=== PATIENT | female | born 1980 | race Caucasian/White ===

== ENCOUNTER 2020-03-08 00:40 | Emergency (ER) | payer OTHER, SELFPAY ==
--- NOTE | 2020-03-08 | XR_ITS ---
EXAMINATION: XR CHEST CLINICAL INFORMATION: Chest pain COMPARISON: 02/04/2019 TECHNIQUE: Frontal view of the chest was obtained. FINDINGS: Cardiac leads overlie the chest. No consolidation, edema, or effusion. No pneumothorax. Bronchial wall thickening noted. The cardiomediastinal silhouette is unchanged. Cervical fusion hardware noted. IMPRESSION: No consolidation. Bronchial wall thickening can be seen with a small airways process such as asthma or atypical/viral infection.
[2020-03-08 00:46] VITALS: BP 142/80; PULSE 116; RESP 20; TEMP 37.6; O2SAT 94; BMI 44.8
--- NOTE | 2020-03-08 00:46 | ECG_ITS ---
Test Reason : CHEST TIGHTNESS Blood Pressure : / mmHG Vent. Rate : 114 BPM Atrial Rate : 114 BPM P-R Int : 118 ms QRS Dur : 082 ms QT Int : 344 ms P-R-T Axes : 062 026 042 degrees QTc Int : [address] & T wave abnormality, consider anterior ischemia Abnormal ECG When compared with ECG of 09-SEP-2015 21:22, Heart rate has increased Referred By: Faith Lucero Electronically Signed By:JUWAN HOWELL
[2020-03-08 01:03] VITALS: PULSE 116
--- NOTE | 2020-03-08 01:18 | ED.CHESTPAIN ---
HPI - Chest Pain General Chief Complaint: Chest Pain Stated Complaint: Chest tightness/ear pain Time Seen by Provider: 03/08/20 01:18 History of Present Illness HPI narrative: This is a 39-year-old female who presents with onset of dry cough with bilateral chest wall discomfort and reports subjective fevers without sick contacts or recent travel. In addition, patient states that she has been having acute dysuria and reports a history of kidney stones. otherwise, patient denies sore throat, palpitations, GI symptoms. As per nursing patient took approximately 6 puffs on her albuterol just prior to arrival. Related Data Previous Rx's Medication Instructions Recorded azithromycin [Zithromax Z-Mikey] 250 mg PO DAILY 5 Days #5 tab 03/08/20 Allergies Allergy/AdvReac Type Severity Reaction Status Date / Time Sulfa (Sulfonamide Allergy Unknown rash, Verified 10/18/19 00:00 Antibiotics) itching sulfamethoxazole Allergy Unknown RASH Unverified 02/17/20 15:44 [From BACTRIM] trimethoprim [From BACTRIM] Allergy Unknown RASH Unverified 02/17/20 15:44 Review of Systems Review of Systems: Pertinent positives and negatives as stated in the HPI. GEN: chills, fatigue HEENT: no nasal congestion, sore throat, ear pain NEURO: no headache, dizziness, focal weakness CV: no chest pain, palpitations, LE edema ABD: no abdominal pain, nausea, vomiting, diarrhea : +dysuria, urgency, frequency SKIN: no rash ROS otherwise negative x 10 PMFSH Past Medical History Source: nursing notes reviewed Medical History Arthritis Asthma Bronchitis Fibromyalgia Fractured spine Seizure Social History Social History Alcohol intake: never Smoking Status: Current every day smoker Use of substances other than those prescribed or required for medical reasons: No Advance Directives: No Advance Directives Information Provided: No Physical Exam Vital Signs and I&O and Narrative: Vital Signs and I&O: Vital Signs Temp 99 F 03/08/20 03:54 Pulse 118 H 03/08/20 04:46 Resp 21 H 03/08/20 04:46 BP 118/61 03/08/20 04:46 Pulse Ox 95 03/08/20 04:46 Intake & Output 03/07/20 03/07/20 03/08/20 06:59 18:59 06:59 Intake Total 1500 / 1500 Balance 1500 / 1500 Weight 111.13 kg Intake: Intake, IV Amoun t 1500 / 1500 0.9 % Sodium C hloride 1,500 ml 1500 / 1500 @ Wide Open IV .Q0M STA Rx#: [id number] Body Mass Index 44.8 VITAL SIGNS: Reviewed. GENERAL: Well developed, well nourished, in no acute distress. HEAD: Normocephalic/atraumatic, EYES: PERRLA, EOMI intact without pain, no nystagmus/pallor/icterus noted EARS: Ext canals without abnormality, TMs non-bulging and non-erythematous NOSE: Nares patent bilateral OROPHARYNX: no oral lesions noted, posterior pharynx clear and non-erythematous without noted tonsillar enlargement/erythema/exudates NECK: Supple, no adenopathy LUNGS: Normal breath sounds. No adventitious sounds or accessory muscle use. SpO2<95%> CARDIOVASCULAR: Regular rate and rhythm without noted murmurs, no JVD or lower extremity edema. ABDOMEN: obese, soft, non-tender, non-distended with bowel sounds. No rigidity. No guarding. No palpable masses or hernias noted MUSCULOSKELETAL: No tenderness, deformities, or effusions noted on gross inspection. EXTREMITIES: No cyanosis, clubbing or edema. SKIN: Inspection of the skin reveals no rashes, ulcerations, jaundice, pallor, or petechiae. NEUROLOGIC: Alert and oriented x 4. Strength and sensation to light touch were grossly intact x 4. Course Course Course Narrative: This is a 39-year-old female with history and clinical presentation concerning for possible sepsis secondary to pneumonia, possible UTI, and less likely cardiac ischemia, renal colic, or PE. On review of all investigations the patient was treated for community-acquired pneumonia, but also tested for COVID-19. The latter testing was not associated with any hypoxia or hematology pattern of COVID-19. All results and findings were discussed with patient at bedside and she was discharged home in stable condition. Initial antibiotics were provided here in the emergency department and then patient was discharged with a script for remaining days. MDM - Chest Pain Lab Data Result diagrams: 03/08/20 01:37 03/08/20 01:37 Labs: Lab Results 03/08/20 03/08/20 03/08/20 Range/Units 01:37 01:37 01:37 WBC 12.7 H (4.8-10.8) X10*3/uL RBC 4.53 (4.20-5.50) X10*6/uL Hgb 12.2 (12.0-16.0) g/dl Hct 38.8 (37-47) % MCV 85.7 (80-98) fL MCH 26.9 L (27.0-33.0) pg MCHC 31.4 (31.0-35.0) g/dl RDW 16.2 H (11.0-16.0) % Plt Count 485 H (160-400) X10*3/uL MPV 9.2 L (9.4-12.3) fL Immature Gran % (Auto) 0.4 (0.0-0.4) % Neut % (Auto) 61.9 (45-73) % Lymph % (Auto) 29.1 (20-40) % [place] % (Auto) 4.7 (2-11) % Eos % (Auto) 3.4 (0-4) % Baso % (Auto) 0.5 (0-2) % Neut # (Auto) 7.9 (2.0-8.3) X10*3/uL Lymph # (Auto) 3.7 (1.2-4.9) X10*3/uL [place] # (Auto) 0.6 (0.1-1.2) X10*3/uL Eos # (Auto) 0.4 (0.0-0.4) X10*3/uL Baso # (Auto) 0.1 (0.0-0.2) X10*3/uL Abs Immat Gran (auto) 0.05 H (0.00-0.03) X10*3/uL Absolute Nucleated RBC 0.000 (0.0-0.012) X10*3/uL Nucleated RBC % (auto) 0.0 (0.0-0.2) /100WBC D-Dimer NG/ML Sodium 140 (135-145) mmol/L Potassium 3.8 (3.3-5.1) mmol/l Chloride 103 (96-108) mmol/L Carbon Dioxide 27 (22-29) mmol/L Anion Gap 14 (12-20) BUN 8 L (9-16) mg/dL Creatinine 0.82 (0.5-1.4) mg/dL Estim Creat Clear Calc 106.2 Estimated GFR > 60 Random Glucose 97 (60-115) mg/dL Lactic Acid (0.5-2.0) mmol/L Calcium 8.6 (8.4-10.2) mg/dL Total Bilirubin 0.2 (0.0-1.0) mg/dL AST 14 (5-31) U/L ALT 16 (0-31) U/L Alkaline Phosphatase 76 (39-117) U/L Troponin I High Sens (<3.5-17.0) ng/L Total Protein 7.5 (6.5-8.0) g/dL Albumin 4.3 (3.5-5.0) g/dL Urine Color DARK YELLOW Urine Appearance HAZY Urine pH 5.5 (5.0-8.0) Ur Specific [place] >= 1.030 H (1.005-1.025) Urine Protein NEG (NEG-TRACE) MG/DL Urine Glucose (UA) NEG (NEG) MG/DL Urine Ketones NEG (NEG) MG/DL Urine Blood NEG (NEG) Urine Nitrite NEG (NEG) Ur Leukocyte Esterase NEG (NEG) 03/08/20 03/08/20 03/08/20 Range/Units 01:37 01:41 01:41 WBC (4.8-10.8) X10*3/uL RBC (4.20-5.50) X10*6/uL Hgb (12.0-16.0) g/dl Hct (37-47) % MCV (80-98) fL MCH (27.0-33.0) pg MCHC (31.0-35.0) g/dl RDW (11.0-16.0) % Plt Count (160-400) X10*3/uL MPV (9.4-12.3) fL Immature Gran % (Auto) (0.0-0.4) % Neut % (Auto) (45-73) % Lymph % (Auto) (20-40) % [place] % (Auto) (2-11) % Eos % (Auto) (0-4) % Baso % (Auto) (0-2) % Neut # (Auto) (2.0-8.3) X10*3/uL Lymph # (Auto) (1.2-4.9) X10*3/uL [place] # (Auto) (0.1-1.2) X10*3/uL Eos # (Auto) (0.0-0.4) X10*3/uL Baso # (Auto) (0.0-0.2) X10*3/uL Abs Immat Gran (auto) (0.00-0.03) X10*3/uL Absolute Nucleated RBC (0.0-0.012) X10*3/uL Nucleated RBC % (auto) (0.0-0.2) /100WBC D-Dimer 286 NG/ML Sodium (135-145) mmol/L Potassium (3.3-5.1) mmol/l Chloride (96-108) mmol/L Carbon Dioxide (22-29) mmol/L Anion Gap (12-20) BUN (9-16) mg/dL Creatinine (0.5-1.4) mg/dL Estim Creat Clear Calc Estimated GFR Random Glucose (60-115) mg/dL Lactic Acid 1.4 (0.5-2.0) mmol/L Calcium (8.4-10.2) mg/dL Total Bilirubin (0.0-1.0) mg/dL AST (5-31) U/L ALT (0-31) U/L Alkaline Phosphatase (39-117) U/L Troponin I High Sens < 3.5 (<3.5-17.0) ng/L Total Protein (6.5-8.0) g/dL Albumin (3.5-5.0) g/dL Urine Color Urine Appearance Urine pH (5.0-8.0) Ur Specific [place] (1.005-1.025) Urine Protein (NEG-TRACE) MG/DL Urine Glucose (UA) (NEG) MG/DL Urine Ketones (NEG) MG/DL Urine Blood (NEG) Urine Nitrite (NEG) Ur Leukocyte Esterase (NEG) ECG Data ECG #1: Attestation: I personally reviewed and interpreted this ECG as follows: Prior ECG tracings: available for review (09/09/2015) Interpretation: NSR, HR-114, no evidence of ischemia Discharge Plan Discharge Clinical Impression: Pneumonia Qualifiers: Pneumonia type: due to unspecified organism Laterality: unspecified laterality Lung location: unspecified part of lung Qualified Code(s): J18.9 - Pneumonia, unspecified organism Patient Disposition: Home, Self-Care Instructions: Pneumonia (ED) Additional Instructions: 1. resume all home medications as prescribed. 2. [id number] cough medicine and take as directed on the outside packaging. 3. follow-up with your primary care provider this morning by calling the office and scheduling an appointment. The patient and/or family acknowledge understanding of results (as applicable), diagnosis, treatment plan, need for follow up, and symptoms that should prompt a return to the emergency room. Prescriptions: New azithromycin [Zithromax Z-Mikey] 250 mg tablet 250 mg PO DAILY 5 Days Qty: 5 RF: 0 Referrals: Michelle Garza MD [Primary Care Provider] - 2 days ( Follow-up after treatment for CAP with a Z-Mikey) Interventions: ED Discharge Assessment Last Done: 03/08/20 04:56 Discharge Date/Time: 03/08/20 04:57
[2020-03-08] MEDS: 0.9 % Sodium Chloride 1,500 ML 999 ML IV (01:42)
[2020-03-08 01:50] LABS: MANUAL DIFF FLAG NO
[2020-03-08 01:51] LABS: Glucose Urine UA NEG (NEG); Leukocyte Esterase Urine NEG (NEG); Nitrite Urine NEG (NEG); PH 5.5 (5.0-8.0); Specific Gravity - Urine >= 1.030 (1.005-1.025); Urine Blood NEG (NEG); Urine Ketones NEG (NEG); Urine Protein NEG (NEG-TRACE)
[2020-03-08 01:52] LABS: Basophils Absolute Auto 0.1 X10*3/uL (0.0-0.2); Basophils Percent Auto 0.5 % (0-2); Eosinophils Absolute Auto 0.4 X10*3/uL (0.0-0.4); Eosinophils Percent Auto 3.4 % (0-4); Hematocrit 38.8 % (37-47); Hemoglobin 12.2 g/dl (12.0-16.0); Imm Gran Abs Auto 0.05 X10*3/uL (0.00-0.03); Imm Gran Pct Auto 0.4 % (0.0-0.4); Lymphocytes Absolute Auto 3.7 X10*3/uL (1.2-4.9); Lymphocytes Percent Auto 29.1 % (20-40); Mean Corpuscular HGB Conc 31.4 g/dl (31.0-35.0); Mean Corpuscular Hemoglobin 26.9 pg (27.0-33.0); Mean Corpuscular Volume 85.7 fL (80-98); Mean Platelet Volume 9.2 fL (9.4-12.3); Monocytes Absolute Auto 0.6 X10*3/uL (0.1-1.2); Monocytes Percent Auto 4.7 % (2-11); Neutrophils Absolute Auto 7.9 X10*3/uL (2.0-8.3); Neutrophils Percent Auto 61.9 % (45-73); Platelet Count 485 X10*3/uL (160-400); Red Blood Count 4.53 X10*6/uL (4.20-5.50); Red Cell Distribution Width 16.2 % (11.0-16.0); White Blood Count 12.7 X10*3/uL (4.8-10.8)
[2020-03-08 01:53] LABS: Color Urine DARK YELLOW; UACC Culture Trigger NO
[2020-03-08 01:54] LABS: Appearance Urine HAZY
--- NOTE | 2020-03-08 01:56 | PC.NURSE ---
Iv established, labs including BCX x 2 and lactic obtained. Pt ambulating to the bathroom with walker with a jones/steady gait to provide urine sample. UA obtained and sent. IVF infusing per EMAR. Pt resting in bed watching TV, call syed within reach, awaiting lab results. Continue to monitor.
[2020-03-08 02:02] LABS: D Dimer 286 NG/ML
[2020-03-08 02:08] LABS: Lactic Acid 1.4 mmol/L (0.5-2.0)
[2020-03-08 02:11] VITALS: PULSE 114
[2020-03-08 02:14] LABS: Alanine Aminotransferase 16 U/L (0-31); Albumin Level 4.3 g/dL (3.5-5.0); Alkaline Phosphatase 76 U/L (39-117); Anion Gap 14 (12-20); Aspartate Amino Transferase 14 U/L (5-31); Bilirubin Total 0.2 mg/dL (0.0-1.0); Blood Urea Nitrogen 8 mg/dL (9-16); Calcium 8.6 mg/dL (8.4-10.2); Carbon Dioxide 27 mmol/L (22-29); Chloride 103 mmol/L (96-108); Creatinine Clr Calc Pharmacy 106.2; Estimated Glomerular Filt Rate > 60; Glucose Random 97 mg/dL (60-115); Potassium 3.8 mmol/l (3.3-5.1); Sodium 140 mmol/L (135-145); Total Protein 7.5 g/dL (6.5-8.0)
[2020-03-08 02:20] LABS: Troponin-I High Sensitivity < 3.5 ng/L (<3.5-17.0)
--- NOTE | 2020-03-08 02:32 | CT_ITS ---
EXAMINATION: CT ABDOMEN AND PELVIS WITHOUT CONTRAST CLINICAL INFORMATION: Flank pain COMPARISON: 02/04/2019 TECHNIQUE: Multidetector volumetric imaging was performed from the superior aspect of the liver through the pubic symphysis. Sagittal and coronal reformatted images were obtained on the technologist's workstation. This CT examination was performed using dose optimization techniques as appropriate, variously including the following: *Automated exposure control *Adjustment of mA and/or kV according to patient size (this includes techniques or standardized protocols for targeted exams where dose is matched to indication/reason for exam; i.e. extremities or head) *Use of iterative reconstruction technique DLP: 1539 mGy-cm FINDINGS: LUNG BASES: Patchy groundglass opacities are seen at both lung bases. The visualized cardiac structures are unremarkable. LIVER, GALLBLADDER, AND BILIARY TREE: The liver is normal in size, shape, and attenuation. No focal hepatic lesion or biliary ductal dilatation is present. Cholecystectomy. PANCREAS: Unremarkable. SPLEEN: Unremarkable. ADRENAL GLANDS: Unremarkable. KIDNEYS AND URETERS: The kidneys are normal in size, shape, and attenuation. No hydronephrosis, hydroureter, or calculi seen. No perinephric stranding. BLADDER: Unremarkable. GASTROINTESTINAL TRACT: Status post sleeve gastrectomy. Normal caliber small bowel. No obstruction. Normal appendix. No colonic wall thickening or inflammatory change. No free air. No free fluid. ABDOMINAL WALL: No significant hernia is appreciated. LYMPH NODES: Normal. VASCULAR: Normal caliber aorta with mild atherosclerotic calcifications noted. PELVIC VISCERA: Uterus is not seen. No adnexal mass. OSSEOUS STRUCTURES: No acute or suspicious osseous abnormality. Posterior fusion hardware of L4-L5. Right femoral screws noted. IMPRESSION: 1. No acute finding in the abdomen or pelvis. No hydronephrosis or nephrolithiasis. 2. Patchy groundglass opacities are seen at both lung bases. This could be infectious or inflammatory.
[2020-03-08 02:36] VITALS: BP 119/73; PULSE 112; RESP 22; TEMP 37.3; O2SAT 95
--- NOTE | 2020-03-08 02:40 | PC.NURSE ---
This RN [facility]. Pt aware of plan to XRay chest and CT abdomen. Pt coughing continuously, requesting cough medicine. MD aware.
[2020-03-08] MEDS: Benzonatate 100 MG CAPSULE PO (02:45)
--- NOTE | 2020-03-08 02:46 | PC.NURSE ---
Pt medicated per EMAR.
--- NOTE | 2020-03-08 03:32 | PC.NURSE ---
Returns from imaging without incident. Awaiting results.
[2020-03-08 03:54] VITALS: BP 112/61; PULSE 108; RESP 24; TEMP 37.2; O2SAT 97
--- NOTE | 2020-03-08 03:55 | PC.NURSE ---
Pt laying in bed, watching TV. Pt remains ST on the monitor @ 108-120 bpm. Pt states that she used her albuterol inhaler many times prior to coming to the ED, pt approximates using her inhaler at least 6x. VSS at this time. Pt reports some relief of cough after Tessalon Perles. Pt awae of plan of care to await CT results. Continue to monitor.
[2020-03-08] MEDS: hydrOXYzine HCL 25 MG TABLET PO (04:09)
--- NOTE | 2020-03-08 04:10 | PC.NURSE ---
This RN at bedside discussing anxiety and tachycardia with pt. Pt denies anxiety at this time, states I haven't been able to sleep in 3 days. Pt agreeable to the Hydroxyzine, pt medicated per EMAR. Pt resting in bed watching TV, continue to monitor.
[2020-03-08 04:46] VITALS: BP 118/61; PULSE 118; RESP 21; O2SAT 95
[2020-03-08] MEDS: Azithromycin 500 MG TABLET PO (04:46)
--- NOTE | 2020-03-08 04:47 | PC.NURSE ---
Pt medicated per EMAR. Per , Covid testing not necessary. IV removed, VSS. Awaiting paperwork.
--- NOTE | 2020-03-08 04:55 | PC.NURSE ---
Covid swab obtained and sent. Pt aware of pending discharge.
== END 2020-03-08 04:57 | disposition home or self-care (01) ==
PROVIDERS: Emergency Provider Student in an Organized Health Care Education/Training Program; PCP Internal Medicine
DX: J18.9 Pneumonia, unspecified organism (principal); Z20.828 Contact with and (suspected) exposure to other viral communicable diseases; J45.909 Unspecified asthma, uncomplicated; F17.200 Nicotine dependence, unspecified, uncomplicated
CPT/HCPCS: 36415; 71045; 74176; 80053; 81003; 83605; 84484; 85025; 85379; 87040; 87635; 93005; 93010; 99284

== ENCOUNTER 2020-04-07 20:00 | Inpatient (IN) | payer OTHER, SELFPAY ==
--- NOTE | 2020-04-07 | XR_ITS ---
EXAMINATION: CHEST 1 VIEW CLINICAL INFORMATION: Cough. COMPARISON: May 06, 2019. TECHNIQUE: An AP view of the chest is provided. FINDINGS: The cardiac silhouette his prominent, though stable. The mediastinal and hilar contours are unremarkable. There are neither pleural effusions nor pneumothoraces. There are no consolidations. The osseous structures are stable. XR/XR chest 1V IMPRESSION: No evidence for acute disease.
[2020-04-07 20:40] VITALS: BP 122/71; BP 140/90; PULSE 112; PULSE 122; RESP 22; TEMP 37.6; O2SAT 92; O2SAT 97; BMI 44.7
[2020-04-07 20:46] VITALS: O2SAT 96
--- NOTE | 2020-04-07 21:15 | PC.NURSE ---
Iv inserted to right ac, labs and first set of blood cultures obtained, blood sent to lab, results pending.
[2020-04-07 21:18] LABS: MANUAL DIFF FLAG NO
[2020-04-07 21:20] LABS: Basophils Percent Auto 0.2 % (0-2); Eosinophils Absolute Auto 0.1 X10*3/uL (0.0-0.4); Eosinophils Percent Auto 0.8 % (0-4); Hematocrit 37.6 % (37-47); Imm Gran Abs Auto 0.07 X10*3/uL (0.00-0.03); Imm Gran Pct Auto 0.4 % (0.0-0.4); Lymphocytes Absolute Auto 2.6 X10*3/uL (1.2-4.9); Lymphocytes Percent Auto 15.3 % (20-40); Mean Corpuscular HGB Conc 31.9 g/dl (31.0-35.0); Mean Corpuscular Volume 84.5 fL (80-98); Monocytes Absolute Auto 0.6 X10*3/uL (0.1-1.2); Monocytes Percent Auto 3.3 % (2-11); Neutrophils Absolute Auto 13.7 X10*3/uL (2.0-8.3); Platelet Count 441 X10*3/uL (160-400); Red Blood Count 4.45 X10*6/uL (4.20-5.50); Red Cell Distribution Width 16.5 % (11.0-16.0); White Blood Count 17.1 X10*3/uL (4.8-10.8)
[2020-04-07 21:30] VITALS: BP 113/79; PULSE 107; RESP 19; TEMP 37.3; O2SAT 96
[2020-04-07 21:35] LABS: Lactic Acid 0.9 mmol/L (0.5-2.0)
[2020-04-07 21:37] LABS: INTERNATIONAL NORM RATIO 1.2 (0.9-1.1); Prothrombin Time 13.9 SEC (10.8-13.0)
[2020-04-07 21:39] LABS: Anion Gap 13 (12-20); Blood Urea Nitrogen 7 mg/dL (9-16); Calcium 7.8 mg/dL (8.4-10.2); Carbon Dioxide 26 mmol/L (22-29); Chloride 104 mmol/L (96-108); Creatinine Clr Calc Pharmacy 114.8; Estimated Glomerular Filt Rate > 60; Glucose Random 92 mg/dL (60-115); Potassium 4.1 mmol/l (3.3-5.1); Sodium 139 mmol/L (135-145)
--- NOTE | 2020-04-07 21:57 | CT_ITS ---
EXAMINATION: CT ANGIOGRAM OF THE CHEST WITH AND WITHOUT CONTRAST (CT PULMONARY ANGIOGRAM FOR PE) CLINICAL INFORMATION: Reason for Exam chest pain cough, URI COMPARISON: None TECHNIQUE: Prior to contrast administration, noncontrast localization images were obtained. Subsequently, multidetector volumetric imaging was performed from the thoracic inlet to below the diaphragms following the administration of 65 mLOmnipaque 350 intravenous contrast. No contrast reaction reported Sagittal, coronal, and MIP oblique sagittal reformatted images were obtained on the CT workstation, uploaded to PACS, and reviewed. This CT examination was performed using dose optimization techniques as appropriate, variously including the following: *Automated exposure control *Adjustment of mA and/or kV according to patient size (this includes techniques or standardized protocols for targeted exams where dose is matched to indication/reason for exam; i.e. extremities or head) *Use of iterative reconstruction technique Total exam dose-length product 394 mGy-cm FINDINGS: QUALITY OF STUDY/CONTRAST BOLUS: Satisfactory. PULMONARY ARTERIES: No central or segmental pulmonary emboli. THORACIC AORTA: No aneurysm or dissection. LUNG: Diffuse patchy, ill-defined groundglass opacities throughout all lobes suggest an atypical pneumonia without a dense consolidation. PLEURA: No pleural effusion or pneumothorax. MEDIASTINUM: Mildly prominent right hilar lymph nodes. No evidence of septal bowing or right heart strain. CHEST WALL/AXILLA: No axillary or internal mammary lymphadenopathy. OSSEOUS STRUCTURES: No acute or suspicious osseous abnormality. UPPER ABDOMEN: Postsurgical changes of a cholecystectomy and suspected gastric sleeve. No reflux of contrast into the hepatic veins to suggest elevated right heart pressures. CT/CT angio chest PE protocol IMPRESSION: Diffuse patchy parenchymal groundglass opacities suggesting atypical infection, including the possibility of Covid 19. No evidence of a pulmonary embolism. VTE: negative
[2020-04-07 21:59] LABS: Procalcitonin 0.05 ng/mL
--- NOTE | 2020-04-07 22:02 | ED.GENADULT ---
HPI - General Adult General Chief complaint: General Medical Stated complaint: fever body aches Time Seen by Provider: 04/07/20 21:44 History of Present Illness HPI narrative: Patient is a 40-year-old female with a history of diabetes, asthma presented today with having coughing, congestion, upper respiratory symptoms. Low-grade fever. Patient seen in the emergency department approximately 1 week ago. At that time was given a Z-Mikey. Patient finished all 5 days of the antibiotic. Symptoms not better. Patient denies any recent travel. No history of the same. No chest pain. Positive generalized malaise. Patient from home. Related Data Previous Rx's Medication Instructions Recorded azithromycin [Zithromax Z-Mikey] 250 mg PO DAILY 5 Days #5 tab 03/08/20 Allergies Allergy/AdvReac Type Severity Reaction Status Date / Time Sulfa (Sulfonamide Allergy Unknown rash, Verified 04/07/20 20:40 Antibiotics) itching sulfamethoxazole Allergy Unknown RASH Verified 04/07/20 20:40 [From BACTRIM] trimethoprim [From BACTRIM] Allergy Unknown RASH Verified 04/07/20 20:40 Review of Systems Review of Systems: Constitutional: No Weight loss, positive Fever, No Chills, No Night Sweats, No Fatigue, No Malaise ENT/Mouth: No Hearing loss, No Ear Pain, No Nasal Congestion, No Sinus Pain, No Hoarseness, No sore throat, No Rhinorrhea, No Swallowing Difficulty Eyes: No Eye Pain, No Swelling, No Redness, No Foreign Body, No Discharge, No Vision Changes Cardiovascular: No Chest Pain, No SOB, No Dyspnea on Exertion, No Orthopnea, No Edema, No Palpitations Respiratory: No Cough, No Sputum, No Wheezing, No Smoke Exposure, No Dyspnea Gastrointestinal: No Nausea, No Vomiting, No Diarrhea, No Constipation, No abdominal Pain, No Hematochezia, No Melena Genitourinary: no irregular bleeding, No Dysuria, No Urinary Frequency, No Hematuria, No Urinary Incontinence, No Urgency, No Flank Pain, No Urinary Flow Changes, No Hesitancy Musculoskeletal: No joint pain, No Myalgias, No Joint Swelling Skin: No Skin Lesions, No rash Neuro: Positive Weakness, No Numbness, No Paresthesias, No Loss of Consciousness, No Dizziness, No Headache Psych: No Anxiety/Panic, No Depression, No SI/HI/AH/VH, No Social Issues, Heme/Lymph: No Bruising, No Bleeding,No Lymphadenopathy Endocrine: No Polyuria, No Polydipsia, No Temperature Intolerance Yes all other systems are reviewed and are negative FOR[facility]LY [facility], [facility] Past Medical History Attestation statement: The following information was validated with the patient. Medical History Arthritis Asthma Bronchitis Fibromyalgia Fractured spine Seizure Social History Social History Alcohol intake: never Smoking Status: Current every day smoker Use of substances other than those prescribed or required for medical reasons: No Advance Directives: No Advance Directives Information Provided: No Physical Exam Vital Signs: Vital Signs: Last Vital Signs Temp 99.2 F 04/07/20 21:30 Pulse 107 H 04/07/20 21:30 Resp 19 04/07/20 21:30 BP 113/79 04/07/20 21:30 Pulse Ox 96 04/07/20 21:30 Body Mass Index 44.7 Appearance: Alert. Oriented X3. No acute distress. Eyes: Pupils equal, round and reactive to light. ENT: Pharynx normal. Neck: Normal inspection. Neck supple. No lymph nodes noted. No crepitus CVS: Normal heart rate and rhythm. Pulses normal. Normal S1 and S2 Respiratory: No respiratory distress. Breath sounds normal. Positive Wheezing. No rales Abdomen: Soft and nontender. No rigidity. No distention. good BS x4 Skin: Skin warm and dry. Normal skin color. Normal skin turgor. Extremities: No lower extremity edema. Neurovascular intact to all extremities. No Lacerations. No Rash Neuro: Oriented X 3. No motor deficit. No sensory deficit. Moving all extermities. No slurred speech Medical Decision Making MDM Narrative Medical decision making narrative: Patient has decreased oxygenation to 80s somewhat%. Improved with O2. Patient's chest x-ray consistent with diffuse patchy infiltrate. D-dimer elevated. CT scan of the chest no PE positive for ground-glass appearance consistent with coronavirus. Patient started on steroids. Will start Ramdesivir, patient to be admitted for coronavirus. Differential Diagnosis Differential Diagnosis: Pneumonia, coronavirus, pulmonary emboli, congestive heart failure Lab Data Result diagrams: 04/07/20 21:09 04/07/20 21:09 Labs: Lab Results 04/07/20 04/07/20 04/07/20 Range/Units 21:09 21:09 21:09 WBC 17.1 H (4.8-10.8) X10*3/uL RBC 4.45 (4.20-5.50) X10*6/uL Hgb 12.0 (12.0-16.0) g/dl Hct 37.6 (37-47) % MCV 84.5 (80-98) fL MCH 27.0 (27.0-33.0) pg MCHC 31.9 (31.0-35.0) g/dl RDW 16.5 H (11.0-16.0) % Plt Count 441 H (160-400) X10*3/uL MPV 9.0 L (9.4-12.3) fL Immature Gran % (Auto) 0.4 (0.0-0.4) % Neut % (Auto) 80.0 H (45-73) % Lymph % (Auto) 15.3 L (20-40) % [place] % (Auto) 3.3 (2-11) % Eos % (Auto) 0.8 (0-4) % Baso % (Auto) 0.2 (0-2) % Lymph # (Auto) 2.6 (1.2-4.9) X10*3/uL [place] # (Auto) 0.6 (0.1-1.2) X10*3/uL Eos # (Auto) 0.1 (0.0-0.4) X10*3/uL Baso # (Auto) 0.0 (0.0-0.2) X10*3/uL Abs Immat Gran (auto) 0.07 H (0.00-0.03) X10*3/uL Absolute Neuts (auto) 13.7 H (2.0-8.3) X10*3/uL Absolute Nucleated RBC 0.000 (0.0-0.012) X10*3/uL Nucleated RBC % (auto) 0.0 (0.0-0.2) /100WBC PT 13.9 H (10.8-13.0) SEC INR 1.2 H (0.9-1.1) Sodium 139 (135-145) mmol/L Potassium 4.1 (3.3-5.1) mmol/l Chloride 104 (96-108) mmol/L Carbon Dioxide 26 (22-29) mmol/L Anion Gap 13 (12-20) BUN 7 L (9-16) mg/dL Creatinine 0.75 (0.5-1.4) mg/dL Estim Creat Clear Calc 114.8 Estimated GFR > 60 Random Glucose 92 (60-115) mg/dL Lactic Acid (0.5-2.0) mmol/L Calcium 7.8 L D (8.4-10.2) mg/dL Procalcitonin ng/mL 04/07/20 04/07/20 Range/Units 21:09 21:09 WBC (4.8-10.8) X10*3/uL RBC (4.20-5.50) X10*6/uL Hgb (12.0-16.0) g/dl Hct (37-47) % MCV (80-98) fL MCH (27.0-33.0) pg MCHC (31.0-35.0) g/dl RDW (11.0-16.0) % Plt Count (160-400) X10*3/uL MPV (9.4-12.3) fL Immature Gran % (Auto) (0.0-0.4) % Neut % (Auto) (45-73) % Lymph % (Auto) (20-40) % [place] % (Auto) (2-11) % Eos % (Auto) (0-4) % Baso % (Auto) (0-2) % Lymph # (Auto) (1.2-4.9) X10*3/uL [place] # (Auto) (0.1-1.2) X10*3/uL Eos # (Auto) (0.0-0.4) X10*3/uL Baso # (Auto) (0.0-0.2) X10*3/uL Abs Immat Gran (auto) (0.00-0.03) X10*3/uL Absolute Neuts (auto) (2.0-8.3) X10*3/uL Absolute Nucleated RBC (0.0-0.012) X10*3/uL Nucleated RBC % (auto) (0.0-0.2) /100WBC PT (10.8-13.0) SEC INR (0.9-1.1) Sodium (135-145) mmol/L Potassium (3.3-5.1) mmol/l Chloride (96-108) mmol/L Carbon Dioxide (22-29) mmol/L Anion Gap (12-20) BUN (9-16) mg/dL Creatinine (0.5-1.4) mg/dL Estim Creat Clear Calc Estimated GFR Random Glucose (60-115) mg/dL Lactic Acid 0.9 (0.5-2.0) mmol/L Calcium (8.4-10.2) mg/dL Procalcitonin 0.05 ng/mL Discharge Plan Discharge Clinical Impression: COVID-19 Patient Disposition: Admitted As Inpatient
[2020-04-07] MEDS: iohexoL 350 MG/ML 100 ML INFUS..BTL IV (22:45)
[2020-04-07] MEDS: dexAMETHasone sod phosphate 10 MG in 0.9 % Sodium Chloride 50 ML 204 MG IV (23:22)
[2020-04-07] MEDS: 0.9 % Sodium Chloride 1,000 ML 1000 ML IV (23:26)
[2020-04-07 23:59] VITALS: BP 126/57; PULSE 113; RESP 20; TEMP 38.1; O2SAT 2
[2020-04-08] VITALS (11 sets, daily range): BP systolic 124–173; BP diastolic 64–85; PULSE 100–114; RESP 16–23; TEMP 36.3–38.1; O2SAT 2–97
[2020-04-08] MEDS: Ibuprofen 600 MG TABLET PO (00:02)
[2020-04-08] MEDS: Acetaminophen 325 MG TABLET 650 MG PO ×4 (00:03→20:19)
[2020-04-08] MEDS: cefTRIAXone sodium 1 GM in 0.9 % Sodium Chloride 50 ML IV ×3 (00:09→20:24)
[2020-04-08 00:53] LABS: SARS COV2 PCR INHOUSE NEGATIVE (Negative)
--- NOTE | 2020-04-08 01:39 | PC.NURSE ---
Late entry: Pt has been medicated with decadron, 1l fluids and azithromycin IV. Pt with complaints of body aches and felt warm/hot to touch, oral temp 98.5, order for tylenol and motrin PO obtained, pt satting 95% on 2l o2 via nc. Occasional dry cough noted. Pt denies bringing up sputum when she coughs. Awaiting hospitalist eval at this time.
[2020-04-08] MEDS: 0.9 % Sodium Chloride 1,000 ML 1000 ML IV (08:16)
[2020-04-08 08:32] LABS: Adenovirus PCR Not Detected (Not Detect.); Bordetella parapertussis PCR Not Detected (Not Detect.); Bordetella pertussis PCR Not Detected (Not Detect.); Chlamydia pneumoniae PCR Not Detected (Not Detect.); Coronavirus 229E PCR Not Detected (Not Detect.); Coronavirus HKU1 PCR Not Detected (Not Detect.); Coronavirus NL63 PCR Not Detected (Not Detect.); Coronavirus OC43 PCR Not Detected (Not Detect.); Human metapneumovirus PCR Not Detected (Not Detect.); Influenza A PCR Not Detected (Not Detect.); Influenza B PCR Not Detected (Not Detect.); Mycoplasma pneumoniae PCR Not Detected (Not Detect.); Parainfluenza 1 PCR Not Detected (Not Detect.); Parainfluenza 2 PCR Not Detected (Not Detect.); Parainfluenza 3 PCR Not Detected (Not Detect.); Parainfluenza 4 PCR Not Detected (Not Detect.); RSV PCR Not Detected (Not Detect.); SARS-CoV-2 PCR Not Detected (Not Detect.)
[2020-04-08 08:33] LABS: Hematocrit 38.9 % (37-47); Hemoglobin 12.7 g/dl (12.0-16.0); Mean Corpuscular HGB Conc 32.6 g/dl (31.0-35.0); Mean Corpuscular Hemoglobin 27.1 pg (27.0-33.0); Mean Corpuscular Volume 83.1 fL (80-98); Mean Platelet Volume 9.1 fL (9.4-12.3); Platelet Count 443 X10*3/uL (160-400); Red Blood Count 4.68 X10*6/uL (4.20-5.50); Red Cell Distribution Width 16.5 % (11.0-16.0); White Blood Count 19.8 X10*3/uL (4.8-10.8)
[2020-04-08] MEDS: Azithromycin 500 MG in 0.9 % Sodium Chloride 250 ML 125 MG IV (08:40)
[2020-04-08 09:01] LABS: C Reactive Protein 15.29 mg/dL (< or = 0.50); Lactate Dehydrogenase 286 U/L (122-220)
[2020-04-08 09:09] LABS: Anion Gap 13 (12-20); Blood Urea Nitrogen 6 mg/dL (9-16); Carbon Dioxide 23 mmol/L (22-29); Chloride 105 mmol/L (96-108); Creatinine Clr Calc Pharmacy 124.8; Estimated Glomerular Filt Rate > 60; Glucose Random 132 mg/dL (60-115); Potassium 4.4 mmol/l (3.3-5.1); Sodium 137 mmol/L (135-145)
--- NOTE | 2020-04-08 09:13 | PC.NURSE ---
pt remains febrile despite APAP. O2 increased to 2.5L. Abx hung, all specimens collected, awaiting results. Called up to [facility] to give report
[2020-04-08 09:22] LABS: Procalcitonin 0.04 ng/mL
--- NOTE | 2020-04-08 09:40 | PC.NURSE ---
report given to RN on [facility]
[2020-04-08 09:53] LABS: Rhino/Enterovirus PCR Detected (Not Detect.)
[2020-04-08] MEDS: Enoxaparin Sodium 40 MG/0.4 ML SYRINGE SUBCUT (11:25)
[2020-04-08] MEDS: 0.9 % Sodium Chloride Flush 3 ML SYRINGE IVFLUSH ×3 (11:26→23:11)
[2020-04-08 12:26] LABS: D Dimer 295 NG/ML
[2020-04-08] MEDS: oxyCODONE HCl Immed Release 5 MG TABLET 10 MG PO ×2 (14:50→20:29)
[2020-04-08] MEDS: Albuterol/Iprat 2.5/0.5MG 3 ML AMPUL.NEB INHALE ×2 (15:30→20:20)
--- NOTE | 2020-04-08 16:16 | PM.IMHP ---
History of Present Illness Date of Service: 04/08/20 Chief Complaint: Fever, shortness of breath 40 year old female with Fibromyalgia presenting with shortness of and fever. She was treated in ED on March 08, 2020 tested negative for covid but was treate for pneumonia and completed antibiotics. She returns on this occasion with several days of fever, cough and shortnes of breath. She no covid exposure. CXR is negative but CT shows Diffuse patchy parenchymal groundglass opacities suggesting atypical infection, including the possibility of Covid 19. Rapid covid is negative. Viral panel which is include covid is also negative for covid, yet positive entero/rhino virus. She was hypoxic on room at 88, WBC is elevated at 19K. She has received Ceftriaxone and Azithromycin. Review of Systems Review of Systems: Yes all other systems are reviewed and are negative Constitutional: Constitutional: Reports fever(s) Cardiovascular: Cardiovascular: Reports chest pain and Reports dyspnea Respiratory: Respiratory: Reports cough and Reports dyspnea PMFSH Medical History Arthritis Asthma Bronchitis Fibromyalgia Fractured spine Seizure Social History Household Members: Family Housing: Apartment Do you presently have visiting nurse or other home services: No Alcohol intake: never Smoking Status: Current every day smoker Tobacco Type: Cigarette Smoked in Last 30 Days: Yes Patient Interested in Nicotine Replacement: Yes Patient Given Instructions on How to Stop Smoking: Yes Date Education Initiated: 04/08/20 Use of substances other than those prescribed or required for medical reasons: No Have you been hit, kicked, punched, or otherwise hurt by someone within the past year? If so, by whom?: No Do you feel safe in your current relationship?: No Current Relationship Is there a partner from a previous relationship who is making you feel unsafe now?: No Are you made to feel afraid or neglected: No Advance Directives: No Advance Directives Information Provided: No Do you have thoughts of harming others: None Do you have a plan to hurt others: No Plan Recently lost weight without trying: No Meds Allergies Allergy/AdvReac Type Severity Reaction Status Date / Time Sulfa (Sulfonamide Allergy Unknown rash, Verified 04/07/20 20:40 Antibiotics) itching sulfamethoxazole Allergy Unknown RASH Verified 04/07/20 20:40 [From BACTRIM] trimethoprim [From BACTRIM] Allergy Unknown RASH Verified 04/07/20 20:40 Home Medications Medication Instructions Recorded Confirmed Type diclofenac sodium 50 mg PO BID PRN 04/08/20 04/08/20 History doxepin 50 mg PO BEDTIME 04/08/20 04/08/20 History fluticasone propionate [Flovent 2 puff INHALATION BID 04/08/20 04/08/20 History HFA] gabapentin 300 mg PO DAILY@0730 04/08/20 04/08/20 History gabapentin 600 mg PO BEDTIME 04/08/20 04/08/20 History levorphanol tartrate 2 mg PO BID 04/08/20 04/08/20 History oxycodone-acetaminophen 1 tab PO Q6H PRN 04/08/20 04/08/20 History tizanidine 2 mg PO BID PRN 04/08/20 04/08/20 History Physical Exam Vital Signs and Narrative: Vital Signs: Last Vital Signs Temp 97.7 F 04/08/20 15:53 Pulse 111 H 04/08/20 15:53 Resp 19 04/08/20 15:53 BP 144/74 H 04/08/20 15:53 Pulse Ox 95 04/08/20 15:53 Body Mass Index 44.7 Constitutional Awake and Alert, No apparent distress Neck Supple, No lymphadenopathy Cardiovascular RRR, No M/R/G, S1 S2, No S3 S4, No pedal edema Respiratory Normal respiratory effort, no accesroy muscle use Gastrointestinal Non tender, Non-distended Skin No rash Neurological Alert & oriented x3 Psychological Appropriate affect Results Labs CBC and Chem 7: 04/08/20 08:23 04/08/20 08:23 Labs: covid negative x 2, viral panel + entero/rhino virus. CRP 15, Ddimer 295, INR 1.2 Imaging Radiologist's Impressions: Impressions Chest X-Ray 04/07/20 00:00 IMPRESSION: No evidence for acute disease. Chest CTA 04/07/20 21:57 IMPRESSION: Diffuse patchy parenchymal groundglass opacities suggesting atypical infection, including the possibility of Covid 19. No evidence of a pulmonary embolism. VTE: negative Assessment and Plan (1) Acute respiratory failure with hypoxia: Status: Acute (2) Atypical pneumonia: Status: Acute 40 year female with atypical PNA, covid 19 negativ x 2 today, acute hypoxic resp failure. DDx: atypical viral PNA, atypical PNA, positive late effect of undiagnosed covid. -Treat wih Azithromycin -Breathing treatment -Supportive care -PRN oxygen -ID and Pulmonary consult -check Sars IgG -urine legionella and strep pneumo Ag Continue home meds for Fibromyalgia Lovenox for DVT Prophylaxis
[2020-04-08] MEDS: methylPREDNISolone Sod Succ/PF 125 MG/2 ML VIAL 60 MG IVPUSH ×2 (16:27→23:10)
[2020-04-08 17:04] LABS: Erythrocyte Sedimentation Rate 51 MM/HR (0-20)
[2020-04-08] MEDS: Doxepin HCl 25 MG CAPSULE 50 MG PO (20:19)
[2020-04-08] MEDS: Gabapentin 300 MG CAPSULE 600 MG PO (20:20)
--- NOTE | 2020-04-08 20:56 | W.PM.IDCN ---
History of Present Illness Data of Consult Service Date: 04/08/20 Requesting physician: Driss Rae Primary Care Provider: Unknown Physician HPI Reason for consult: shortness of breath She presents to hospital with shortness of breath as well as fatigue,worsening over the last 2-3 days. She has low grade fever and no chills She was seen in ER on 03/08 and given po Zmax and no steroids She was COVID negative She presents again with shortness of breath and fatigue Oxygen saturation of 88% on room air last night and patient on 2 Liters oxygen last night and room air today CT ground glass and no lobar infiltrate WBC 19,000 Review of Systems Constitutional: Constitutional: Reports body ache(s) and Reports fever(s) Cardiovascular: Cardiovascular: Reports dyspnea Respiratory: Respiratory: Reports dyspnea PMFSH Past Medical History Medical History (Updated 04/10/20 @ 10:09 by Joshua Langston MD) Arthritis Asthma Bronchitis Fibromyalgia Fractured spine Pneumonitis Seizure URI, acute Family History Family history: reviewed and not pertinent Social History Social History Household Members: Family Housing: Apartment Alcohol intake: never Smoking Status: Current every day smoker Tobacco Type: Cigarette service: No Current occupational status: disabled Meds Allergies Allergy/AdvReac Type Severity Reaction Status Date / Time Sulfa (Sulfonamide Allergy Unknown rash, Verified 04/07/20 20:40 Antibiotics) itching sulfamethoxazole Allergy Unknown RASH Verified 04/07/20 20:40 [From BACTRIM] trimethoprim [From BACTRIM] Allergy Unknown RASH Verified 04/07/20 20:40 Home Medications Medication Instructions Recorded Confirmed Type Flovent HFA 2 puff INHALATION BID 04/08/20 04/08/20 History diclofenac sodium 50 mg PO BID PRN 04/08/20 04/08/20 History doxepin 50 mg PO BEDTIME 04/08/20 04/08/20 History gabapentin 300 mg PO DAILY@0730 04/08/20 04/08/20 History gabapentin 600 mg PO BEDTIME 04/08/20 04/08/20 History levorphanol tartrate 2 mg PO BID 04/08/20 04/08/20 History oxycodone-acetaminophen 1 tab PO Q6H PRN 04/08/20 04/08/20 History tizanidine 2 mg PO BID PRN 04/08/20 04/08/20 History Physical Exam Vital Signs: Vital Signs: Last Vital Signs Temp 98.2 F 04/08/20 20:00 Pulse 100 04/08/20 20:00 Resp 18 04/08/20 20:00 BP 173/85 H 04/08/20 20:00 Pulse Ox 92 04/08/20 20:00 Body Mass Index 44.7 Const: General: comfortable Orientation/consciousness: oriented to person, oriented to place and oriented to time HENMT: Head: Yes normal to inspection Ears: hearing grossly normal bilaterally Mouth: oropharynx normal Eyes: General: appearance normal, both eyes and all related structures Resp: Effort & Inspection: normal respiratory effort, able to speak in complete sentences and audible wheezes Cardio: Rate: regular rate Rhythm: regular rhythm GI: Inspection: Yes normal to inspection : General: Yes no CVA tenderness Back/Spine/Pelvis: Back: no CVA tenderness Skin: General skin exam: no rashes or lesions noted Neuro: General: oriented to person, oriented to place and oriented to time Extrem: General: Yes normal to inspection Assessment and Plan (1) Acute respiratory failure with hypoxia: Status: Acute Check HIV test Po Levaquin for any possible bacterial infection like Legionella,but already had Zmax last month for 7 days Check Legionella Recheck CBC Await COVID antibodies (2) Atypical pneumonia: Status: Acute Results Labs CBC & Chem 7: 04/11/20 06:40 04/11/20 06:40 Labs: Short CBC 04/07/20 04/08/20 Range/Units 21:09 08:23 WBC 17.1 H 19.8 H (4.8-10.8) X10*3/uL Hgb 12.0 12.7 (12.0-16.0) g/dl Hct 37.6 38.9 (37-47) % Plt Count 441 H 443 H (160-400) X10*3/uL BMP 04/07/20 04/08/20 21:09 08:23 Sodium 139 137 Potassium 4.1 4.4 Chloride 104 105 Carbon Dioxide 26 23 BUN 7 L 6 L Creatinine 0.75 0.69 Calcium 7.8 L D 8.0 L
[2020-04-08] MEDS: levoFLOXacin 750 MG TABLET PO (21:10)
[2020-04-09] MEDS: Acetaminophen 325 MG TABLET 650 MG PO ×3 (02:51→16:12)
[2020-04-09] MEDS: oxyCODONE HCl Immed Release 5 MG TABLET 10 MG PO ×4 (02:52→22:17)
[2020-04-09] MEDS: Albuterol/Iprat 2.5/0.5MG 3 ML AMPUL.NEB INHALE ×5 (03:18→19:48)
--- NOTE | 2020-04-09 03:21 | MHC.PIE ---
p; pt c/o sob. note; no prn upd? i; dr rogers notified; new order duoneb q4h e; will cont to monitor
[2020-04-09 03:57] VITALS: BP 153/72; PULSE 101; RESP 18; TEMP 36.3; O2SAT 96
[2020-04-09 04:46] LABS: Amphetamine Screen Urine Not Detected (Not Detect); Barbiturates, Urine Not Detected (Not Detect); Benzodiazepines Screen Urine Not Detected (Not Detect); Cannabinoid Screen Urine POSITIVE (Not Detect); Cocaine Screen Urine Not Detected (Not Detect); Opiate Screen Urine POSITIVE (Not Detect); Phencyclidine Screen Urine Not Detected (Not Detect)
[2020-04-09 06:00] VITALS: BMI 44.5
--- NOTE | 2020-04-09 06:30 | MHC.PIE ---
p; pt c/o pain to chest area from cough, pain reproduce able. note; prn tylenol and oxy given at 0251. i; dr rogers notified; new order hydromet 5ml q6 e; will cont to monitor
[2020-04-09] MEDS: HYDROcodone/Homat 5/1.5/5 ML 5 ML SYRUP PO ×3 (06:44→18:37)
[2020-04-09 07:45] VITALS: BP 160/82; PULSE 104; RESP 20; TEMP 36.9; O2SAT 94
[2020-04-09 07:49] LABS: Basophils Percent Auto 0.1 % (0-2); Hemoglobin 11.9 g/dl (12.0-16.0); Imm Gran Abs Auto 0.23 X10*3/uL (0.00-0.03); Lymphocytes Absolute Auto 1.6 X10*3/uL (1.2-4.9); Lymphocytes Percent Auto 6.9 % (20-40); MANUAL DIFF FLAG SCAN; Mean Corpuscular HGB Conc 32.2 g/dl (31.0-35.0); Mean Corpuscular Hemoglobin 26.7 pg (27.0-33.0); Mean Platelet Volume 9.1 fL (9.4-12.3); Monocytes Absolute Auto 0.4 X10*3/uL (0.1-1.2); Monocytes Percent Auto 1.9 % (2-11); Neutrophils Absolute Auto 20.4 X10*3/uL (2.0-8.3); Neutrophils Percent Auto 90.1 % (45-73); Platelet Count 497 X10*3/uL (160-400); Red Blood Count 4.46 X10*6/uL (4.20-5.50); Red Cell Distribution Width 16.4 % (11.0-16.0); SCAN SMEAR FLAG 1; White Blood Count 22.6 X10*3/uL (4.8-10.8)
[2020-04-09 08:44] LABS: SLIDE REVIEW VERIFIED
[2020-04-09] MEDS: methylPREDNISolone Sod Succ/PF 125 MG/2 ML VIAL 60 MG IVPUSH ×2 (10:03→16:11)
[2020-04-09] MEDS: Gabapentin 300 MG CAPSULE PO (10:03)
[2020-04-09] MEDS: 0.9 % Sodium Chloride Flush 3 ML SYRINGE IVFLUSH ×3 (10:03→22:46)
--- NOTE | 2020-04-09 10:16 | HO.PM.IMPN ---
Subjective Subjective Date of Service: 04/09/20 Interval History: sob, pain with breathing Cardiovascular Cardiovascular: Reports no additional cardiovascular complaints Gastrointestinal Gastrointestinal: Reports no additional gastrointestinal complaints Physical Exam Vital Signs: Vital Signs: Last Vital Signs Temp 98.4 F 04/09/20 07:45 Pulse 104 H 04/09/20 07:45 Resp 20 04/09/20 07:45 BP 160/82 H 04/09/20 07:45 Pulse Ox 94 04/09/20 07:45 Body Mass Index 44.5 General: AO X 3, no acute distress Resp: bilateral rales CVS: S1,S2,RRR GI: soft, non tender, non distended Neuro: motor grossly intact Psych: appropriate affect Objective Data Current Medications Generic Name Dose Route Start Last Admin Trade Name Tacosq PRN Reason Stop Dose Admin Acetaminophen 650 mg 04/08/20 14:01 04/09/20 10:04 Acetaminophen 325 Mg Tablet PO 650 mg Q6H PRN Administration Pain, Mild (Pain Scale 1-3) Albuterol/Ipratropium 3 ml 04/08/20 16:00 04/09/20 07:32 Albuterol/Iprat 2.5/0.5mg 3 Ml Ampul.Neb INHALE 3 ml RQ4H WHILE AWAKE CUCA Administration Albuterol/Ipratropium 3 ml 04/09/20 02:59 04/09/20 03:18 Albuterol/Iprat 2.5/0.5mg 3 Ml Ampul.Neb INHALE 3 ml RQ4H PRN Administration Shortness of Breath/Wheezing Diclofenac Sodium 50 mg 04/08/20 14:31 Diclofenac Sodium Delayed Rel 50 Mg Tablet.Dr PO BID PRN pain Doxepin HCl 50 mg 04/08/20 21:00 04/08/20 20:19 Doxepin Hcl 25 Mg Capsule PO 50 mg BEDTIME CUCA Administration Enoxaparin Sodium 40 mg 04/08/20 12:00 04/08/20 11:25 Enoxaparin Sodium 40 Mg/0.4 Ml Syringe SUBCUT 40 mg Q24H CUCA Administration Gabapentin 300 mg 04/09/20 07:30 04/09/20 10:03 Gabapentin 300 Mg Capsule PO 300 mg DAILY@0730 CUCA Administration Gabapentin 600 mg 04/08/20 21:00 04/08/20 20:20 Gabapentin 300 Mg Capsule PO 600 mg BEDTIME CUCA Administration Hydrocodone Bit/Homatropine Methylb 5 ml 04/09/20 06:28 04/09/20 06:44 Hydrocodone/Homat 5/1.5/5 Ml 5 Ml Syrup PO 5 ml Q6H PRN Administration Cough Sodium Chloride 1,000 mls @ 0 mls/hr 04/07/20 22:00 04/08/20 10:15 Ns IV Infused .Q0M CUCA Infusion Wide Open Levofloxacin 750 mg 04/08/20 22:00 04/08/20 21:10 Levofloxacin 750 Mg Tablet PO 750 mg Q24H CUCA Administration Methylprednisolone Sodium Succinate 60 mg 04/08/20 16:00 04/09/20 10:03 Methylprednisolone Sod Succ/Pf 125 Mg/2 Ml Vial IVPUSH 60 mg Q8H CUCA Administration Non-Formulary Medication 2 mg 04/08/20 21:00 Levorphanol Tartrate PO BID CUCA Oxycodone HCl 10 mg 04/08/20 14:43 04/09/20 10:04 Oxycodone Hcl Immed Release 5 Mg Tablet PO 10 mg Q6H PRN Administration severe pain Sodium Chloride 3 ml 04/08/20 10:45 04/09/20 10:03 0.9 % Sodium Chloride Flush 3 Ml Syringe IVFLUSH 3 ml QSHIFT CUCA Administration Tizanidine HCl 2 mg 04/08/20 14:45 Tizanidine Hcl 4 Mg Tablet PO BID PRN Pain Zolpidem Tartrate 5 mg 04/08/20 10:45 Zolpidem Tartrate 5 Mg Tablet PO BEDTIME PRN Insomnia Labs CBC & Chem 7: 04/09/20 07:29 04/08/20 08:23 Microbiology Microbiology Results: Microbiology 04/07/20 21:30 Blood - Venous Blood Culture - Preliminary No growth after 24 hours. 04/07/20 21:30 Blood - Venous Blood Culture - Preliminary No growth after 24 hours. Assessment and Plan (1) Acute respiratory failure with hypoxia: Problem details: She has had negative COVID studies multiple times She has atypical pneumonia/possible viral with entero/rhinovirus cause She may have COVID in past She also may have asthma type or collagen vascular illness,possible Legionella, ?PCP Status: Acute (2) Atypical pneumonia: Status: Acute (3) Asthma: Status: Acute (4) Enterovirus infection: Status: Acute (5) Morbid obesity: Status: Acute Assessment and Plan: 40F presented with one month of SOB acute hypoxic respiratory failure due to viral pneumonia with entero/rhinovirus ocmplicated by asthma exacerbation with comorbidity of morbid obesity. covid negative, follow up antibodies treat possible additional atypical bacteria - levaquin, check urine legionella continue solumedrol, nebs wean o2 as tolerated
[2020-04-09 12:00] VITALS: BP 138/75; PULSE 102; RESP 19; TEMP 36.7; O2SAT 96
[2020-04-09] MEDS: Enoxaparin Sodium 40 MG/0.4 ML SYRINGE SUBCUT (13:08)
[2020-04-09 15:58] VITALS: BP 133/76; PULSE 99; RESP 18; TEMP 36.5; O2SAT 97
--- NOTE | 2020-04-09 15:59 | MHC.CM.PN ---
Pt reports she lives at home with her daughter and son. Her son is her [employer]. Pt reports she has a walker and electric wheel chair at home as well as a shower chair. Pt reports her PCP is Michelle Garza. Pt reports she does not have a HCP. She may be interested in completing one and will think about it overnight and revisit with CM tomorrow. Pts current DC plan is home with no resumption of [employer] services pt will need chair van
--- NOTE | 2020-04-09 18:30 | P.CONPL_ITS ---
History of Present Illness History of Present Illness Consult date: 04/08/20 Chief complaint: COVID PNA, Acute hypoxic resp failure Narrative: 40 year old female with Fibromyalgia presenting with shortness of and fever. She was treated in ED on March 08, 2020 tested negative for covid but was treate for pneumonia and completed antibiotics. Initially felt a little better, but then her symptoms worse again. She started developing worsening shortness of breath and wheezing. Moderate severity. Subsequently she started developing worsening symptoms. She returns on this occasion with several days of fever, cough and shortnes of breath. She no covid exposure. CXR is negative but CT shows Diffuse patchy parenchymal groundglass opacities suggesting atypical infection, including the possibility of Covid 19. Rapid covid is negative. Viral panel which is include covid is also negative for covid, yet positive entero/rhino virus. She was hypoxic on room at 88, WBC is elevated at 19K. She has received Ceftriaxone and Azithromycin. On further questioning she states that she had to fumigate her home because of pest. She does smoke cigarettes. She denies any recreational drugs. Review of Systems Constitutional: Constitutional: Denies night sweats ENT: Denies change in voice, Denies lip swelling, Denies mouth pain, Reports nasal congestion, Reports nasal discharge and Denies tongue swelling Cardiovascular: Cardiovascular: Denies chest pain and Reports dyspnea Respiratory: Respiratory: Reports cough, Reports dyspnea and Reports wheezing Gastrointestinal: Gastrointestinal: Denies abdominal pain Musculoskeletal: Musculoskeletal: Denies no additional musculoskeletal complaints Neurologic: Denies Neuro-related abnormal movements Psychiatric: Psychiatric: Denies no additional psychiatric complaints Hematologic/Lymphatic: Hematologic/Lymphatic: Denies easy bleeding and Denies lymphadenopathy Allergic/Immunologic: Allergic/Immunologic: Denies lip swelling, Denies tongue swelling and Reports wheezing PMFSH Past Medical History Medical History Arthritis Asthma Bronchitis Fibromyalgia Fractured spine Seizure Family History Family history: reviewed and not pertinent Social History Social History Household Members: Family Housing: Apartment Do you presently have visiting nurse or other home services: No Alcohol intake: never Smoking Status: Current every day smoker Tobacco Type: Cigarette Smoked in Last 30 Days: Yes Patient Interested in Nicotine Replacement: Yes Patient Given Instructions on How to Stop Smoking: Yes Date Education Initiated: 04/08/20 Use of substances other than those prescribed or required for medical reasons: No Currently Displaying Signs/Symptoms of Drug Intoxication Withdrawal: No Have you been hit, kicked, punched, or otherwise hurt by someone within the past year? If so, by whom?: No Do you feel safe in your current relationship?: No Current Relationship Is there a partner from a previous relationship who is making you feel unsafe now?: No Are you made to feel afraid or neglected: No Advance Directives: No Advance Directives Information Provided: No Do you have thoughts of harming others: None Do you have a plan to hurt others: No Plan Recently lost weight without trying: No service: No Current occupational status: disabled Meds Allergies Allergy/AdvReac Type Severity Reaction Status Date / Time Sulfa (Sulfonamide Allergy Unknown rash, Verified 04/07/20 20:40 Antibiotics) itching sulfamethoxazole Allergy Unknown RASH Verified 04/07/20 20:40 [From BACTRIM] trimethoprim [From BACTRIM] Allergy Unknown RASH Verified 04/07/20 20:40 Home Medications Medication Instructions Recorded Confirmed Type diclofenac sodium 50 mg PO BID PRN 04/08/20 04/08/20 History doxepin 50 mg PO BEDTIME 04/08/20 04/08/20 History fluticasone propionate [Flovent 2 puff INHALATION BID 04/08/20 04/08/20 History HFA] gabapentin 300 mg PO DAILY@0730 04/08/20 04/08/20 History gabapentin 600 mg PO BEDTIME 04/08/20 04/08/20 History levorphanol tartrate 2 mg PO BID 04/08/20 04/08/20 History oxycodone-acetaminophen 1 tab PO Q6H PRN 04/08/20 04/08/20 History tizanidine 2 mg PO BID PRN 04/08/20 04/08/20 History Physical Exam Vital Signs: Vital Signs: Last Vital Signs Temp 97.7 F 04/09/20 15:58 Pulse 99 04/09/20 15:58 Resp 18 04/09/20 15:58 BP 133/76 04/09/20 15:58 Pulse Ox 97 04/09/20 15:58 Body Mass Index 44.5 Const: General: alert HENMT: General nose exam: Abnormal external nose present and Nasal discharge present Eyes: Pupils: Equal, round and reactive pupils present Neck: Neck: Yes normal visual inspection, Yes full ROM and Yes no lymphadenopathy Chest: Chest palpation & inspection: normal inspection of the chest Resp: Auscultation: rhonchi, wheezes throughout and diminished lung sounds Cardio: Rate: regular rate Rhythm: regular rhythm Heart sounds: S1 normal heart sound present and S2 normal heart sound present GI: Palpation (GI): Soft to palpation and nontender Auscultation: normal bowel sounds : General: Yes no CVA tenderness Back/Spine/Pelvis: Back: no CVA tenderness Skin: General skin exam: rashes and/or lesions noted Neuro: Cranial nerves: Yes Equal, round and reactive pupils present Results Laboratory Findings CBC and BMP: 04/09/20 07:29 04/08/20 08:23 ABG, PT/INR, D-dimer: PT/INR, D-dimer PT 13.9 SEC (10.8-13.0) H 04/07/20 21:09 INR 1.2 (0.9-1.1) H 04/07/20 21:09 D-Dimer 295 NG/ML 04/08/20 12:01 Abnormal lab findings: Abnormal Labs 04/07/20 04/07/20 04/07/20 21:09 21:09 21:09 WBC 17.1 H Hgb MCH RDW 16.5 H Plt Count 441 H MPV 9.0 L Immature Gran % (Auto) Neut % (Auto) 80.0 H Lymph % (Auto) 15.3 L [place] % (Auto) Abs Immat Gran (auto) 0.07 H Absolute Neuts (auto) 13.7 H ESR PT 13.9 H INR 1.2 H BUN 7 L Random Glucose Calcium 7.8 L D Lactate Dehydrogenase C-Reactive Protein Urine Opiates Screen U Marijuana (THC) Screen Entero/Rhino (PCR) 04/08/20 04/08/20 04/08/20 08:23 08:23 08:23 WBC 19.8 H Hgb MCH RDW 16.5 H Plt Count 443 H MPV 9.1 L Immature Gran % (Auto) Neut % (Auto) Lymph % (Auto) [place] % (Auto) Abs Immat Gran (auto) Absolute Neuts (auto) ESR PT INR BUN Random Glucose Calcium Lactate Dehydrogenase 286 H C-Reactive Protein 15.29 H Urine Opiates Screen U Marijuana (THC) Screen Entero/Rhino (PCR) Detected A 04/08/20 04/08/20 04/09/20 08:23 15:30 03:42 WBC Hgb MCH RDW Plt Count MPV Immature Gran % (Auto) Neut % (Auto) Lymph % (Auto) [place] % (Auto) Abs Immat Gran (auto) Absolute Neuts (auto) ESR 51 H PT INR BUN 6 L Random Glucose 132 H D Calcium 8.0 L Lactate Dehydrogenase C-Reactive Protein Urine Opiates Screen POSITIVE H U Marijuana (THC) Screen POSITIVE H Entero/Rhino (PCR) 04/09/20 07:29 WBC 22.6 H Hgb 11.9 L MCH 26.7 L RDW 16.4 H Plt Count 497 H MPV 9.1 L Immature Gran % (Auto) 1.0 H Neut % (Auto) 90.1 H Lymph % (Auto) 6.9 L [place] % (Auto) 1.9 L Abs Immat Gran (auto) 0.23 H Absolute Neuts (auto) 20.4 H ESR PT INR BUN Random Glucose Calcium Lactate Dehydrogenase C-Reactive Protein Urine Opiates Screen U Marijuana (THC) Screen Entero/Rhino (PCR) Microbiology: Microbiology 04/07/20 21:30 Blood - Venous Blood Culture - Preliminary No growth after 24 hours. 04/07/20 21:30 Blood - Venous Blood Culture - Preliminary No growth after 24 hours. Assessment and Plan (1) Acute respiratory failure with hypoxia: Problem details: She has had negative COVID studies multiple times She has atypical pneumonia/possible viral with entero/rhinovirus cause She may have COVID in past She also may have asthma type or collagen vascular illness,possible Legionella, ?PCP Status: Acute (2) Asthma: Qualifiers: Asthma severity: moderate Asthma complication type: with acute exacerbation Asthma persistence: persistent Qualified Code(s): J45.41 - Moderate persistent asthma with (acute) exacerbation Status: Acute DuoNebs Q 4 Switch to Solu-Medrol IV Blood work pending (3) Pneumonitis: Problem details: Likely related to an underlying exposure, hyper sensitivity pneumonitis bases on the distribution of the ground-glass opacities. Viral pneumonia still in the differential. Status: Acute (4) URI, acute: Status: Acute
[2020-04-09] MEDS: Diclofenac Sodium Delayed Rel 50 MG TABLET.DR PO (18:35)
[2020-04-09] MEDS: TiZANidine HCL 4 MG TABLET 2 MG PO (18:35)
[2020-04-09 19:16] VITALS: BP 113/75; PULSE 97; RESP 18; TEMP 36.5; O2SAT 95
[2020-04-09] MEDS: Zolpidem Tartrate 5 MG TABLET PO (21:15)
[2020-04-09] MEDS: Doxepin HCl 25 MG CAPSULE 50 MG PO (21:15)
[2020-04-09] MEDS: levoFLOXacin 750 MG TABLET PO (21:15)
[2020-04-09] MEDS: Gabapentin 300 MG CAPSULE 600 MG PO (21:15)
[2020-04-09] MEDS: diphenhydrAMINE HCL 50 MG/ML VIAL 25 MG IVPUSH (22:13)
[2020-04-09] MEDS: LORazepam 2 MG/ML VIAL 1 MG IVPUSH (22:13)
[2020-04-10] VITALS: BP 120/82; PULSE 106; RESP 16; TEMP 36.4; O2SAT 93
[2020-04-10] MEDS: methylPREDNISolone Sod Succ/PF 125 MG/2 ML VIAL 60 MG IVPUSH ×3 (00:09→16:44)
[2020-04-10] MEDS: Acetaminophen 325 MG TABLET 650 MG PO (01:55)
[2020-04-10] MEDS: HYDROcodone/Homat 5/1.5/5 ML 5 ML SYRUP PO ×2 (01:56→22:02)
[2020-04-10] MEDS: Doxepin HCl 25 MG CAPSULE PO (02:28)
[2020-04-10 04:00] VITALS: BP 128/70; PULSE 98; RESP 16; RESP 95; TEMP 36.4; O2SAT 96
[2020-04-10 05:37] VITALS: BMI 44.2
[2020-04-10 05:48] VITALS: BMI 44.2
[2020-04-10 07:18] VITALS: BP 143/84; PULSE 85; RESP 16; TEMP 36.6; O2SAT 95
[2020-04-10] MEDS: Albuterol/Iprat 2.5/0.5MG 3 ML AMPUL.NEB INHALE ×4 (07:20→19:36)
[2020-04-10] MEDS: Gabapentin 300 MG CAPSULE PO (07:25)
[2020-04-10] MEDS: 0.9 % Sodium Chloride Flush 3 ML SYRINGE IVFLUSH ×2 (07:26→16:45)
[2020-04-10] MEDS: oxyCODONE HCl Immed Release 5 MG TABLET 10 MG PO ×3 (07:27→21:56)
[2020-04-10 08:43] LABS: HIV AB/AG Nonreactive (Nonreactive)
[2020-04-10 09:15] LABS: SARS COV2 IgG Negative (Negative)
--- NOTE | 2020-04-10 10:08 | HO.PM.IMPN ---
Subjective Subjective Date of Service: 04/10/20 Interval History: sob, pain with breathing, a little worse today Cardiovascular Cardiovascular: Reports no additional cardiovascular complaints Gastrointestinal Gastrointestinal: Reports no additional gastrointestinal complaints Physical Exam Vital Signs: Vital Signs: Last Vital Signs Temp 97.9 F 04/10/20 07:18 Pulse 85 04/10/20 07:18 Resp 16 04/10/20 07:18 BP 143/84 H 04/10/20 07:18 Pulse Ox 95 04/10/20 07:18 Body Mass Index 44.2 General: AO X 3, no acute distress Resp: bilateral rales CVS: S1,S2,RRR GI: soft, non tender, non distended Neuro: motor grossly intact Psych: appropriate affect Objective Data Current Medications Generic Name Dose Route Start Last Admin Trade Name Tacosq PRN Reason Stop Dose Admin Acetaminophen 650 mg 04/08/20 14:01 04/10/20 01:55 Acetaminophen 325 Mg Tablet PO 650 mg Q6H PRN Administration Pain, Mild (Pain Scale 1-3) Albuterol/Ipratropium 3 ml 04/08/20 16:00 04/10/20 07:20 Albuterol/Iprat 2.5/0.5mg 3 Ml Ampul.Neb INHALE 3 ml RQ4H WHILE AWAKE CUCA Administration Albuterol/Ipratropium 3 ml 04/09/20 02:59 04/09/20 03:18 Albuterol/Iprat 2.5/0.5mg 3 Ml Ampul.Neb INHALE 3 ml RQ4H PRN Administration Shortness of Breath/Wheezing Diclofenac Sodium 50 mg 04/08/20 14:31 04/09/20 18:35 Diclofenac Sodium Delayed Rel 50 Mg Tablet.Dr PO 50 mg BID PRN Administration pain Doxepin HCl 50 mg 04/08/20 21:00 04/09/20 21:15 Doxepin Hcl 25 Mg Capsule PO 50 mg BEDTIME CUCA Administration Enoxaparin Sodium 40 mg 04/08/20 12:00 04/09/20 13:08 Enoxaparin Sodium 40 Mg/0.4 Ml Syringe SUBCUT 40 mg Q24H CUCA Administration Gabapentin 300 mg 04/09/20 07:30 04/10/20 07:25 Gabapentin 300 Mg Capsule PO 300 mg DAILY@0730 CUCA Administration Gabapentin 600 mg 04/08/20 21:00 04/09/20 21:15 Gabapentin 300 Mg Capsule PO 600 mg BEDTIME CUCA Administration Hydrocodone Bit/Homatropine Methylb 5 ml 04/09/20 06:28 04/10/20 01:56 Hydrocodone/Homat 5/1.5/5 Ml 5 Ml Syrup PO 5 ml Q6H PRN Administration Cough Sodium Chloride 1,000 mls @ 0 mls/hr 04/07/20 22:00 04/08/20 10:15 Ns IV Infused .Q0M CUCA Infusion Wide Open Levofloxacin 750 mg 04/08/20 22:00 04/09/20 21:15 Levofloxacin 750 Mg Tablet PO 750 mg Q24H CUCA Administration Methylprednisolone Sodium Succinate 60 mg 04/08/20 16:00 04/10/20 07:26 Methylprednisolone Sod Succ/Pf 125 Mg/2 Ml Vial IVPUSH 60 mg Q8H CUCA Administration Non-Formulary Medication 2 mg 04/08/20 21:00 Levorphanol Tartrate PO BID CUCA Oxycodone HCl 10 mg 04/08/20 14:43 04/10/20 07:27 Oxycodone Hcl Immed Release 5 Mg Tablet PO 10 mg Q6H PRN Administration severe pain Sodium Chloride 3 ml 04/08/20 10:45 04/10/20 07:26 0.9 % Sodium Chloride Flush 3 Ml Syringe IVFLUSH 3 ml QSHIFT CUCA Administration Tizanidine HCl 2 mg 04/08/20 14:45 04/09/20 18:35 Tizanidine Hcl 4 Mg Tablet PO 2 mg BID PRN Administration Pain Zolpidem Tartrate 5 mg 04/08/20 10:45 04/09/20 21:15 Zolpidem Tartrate 5 Mg Tablet PO 5 mg BEDTIME PRN Administration Insomnia Labs CBC & Chem 7: 04/09/20 07:29 04/08/20 08:23 Microbiology Microbiology Results: Microbiology 04/07/20 21:30 Blood - Venous Blood Culture - Preliminary No growth after 48 hours. 04/07/20 21:30 Blood - Venous Blood Culture - Preliminary No growth after 48 hours. Assessment and Plan (1) Acute respiratory failure with hypoxia: Status: Acute (2) Atypical pneumonia: Status: Acute (3) Asthma: Status: Acute (4) Enterovirus infection: Status: Acute (5) Morbid obesity: Status: Acute Assessment and Plan: 40F presented with one month of SOB acute hypoxic respiratory failure due to viral pneumonia with entero/rhinovirus complicated by asthma exacerbation with co-morbidity of morbid obesity. possible additional etiology such as pneumocystis, collagen vascular disease, hypersensitivity covid pcr and antibodies negative HIV negative autoimmune serologies pending, urine legionella pending(? not received yet) continue steroids, nebs, levaquin wean o2 as tolerated
[2020-04-10 11:54] VITALS: BP 154/88; PULSE 101; RESP 16; TEMP 36.7; O2SAT 95
[2020-04-10] MEDS: Enoxaparin Sodium 40 MG/0.4 ML SYRINGE SUBCUT (12:59)
[2020-04-10] MEDS: ALPRAZolam 0.25 MG TABLET PO ×2 (13:00→21:56)
[2020-04-10] MEDS: TiZANidine HCL 4 MG TABLET 2 MG PO (13:03)
[2020-04-10 14:37] VITALS: BMI 44.2
[2020-04-10 16:00] VITALS: BP 141/76; PULSE 97; TEMP 36.3; O2SAT 97
[2020-04-10 20:00] VITALS: BP 155/85; PULSE 90; TEMP 36.3; O2SAT 96
[2020-04-10] MEDS: Doxepin HCl 25 MG CAPSULE 50 MG PO (20:46)
[2020-04-10] MEDS: Gabapentin 300 MG CAPSULE 600 MG PO (20:47)
[2020-04-10] MEDS: Diclofenac Sodium Delayed Rel 50 MG TABLET.DR PO (21:55)
[2020-04-10] MEDS: levoFLOXacin 750 MG TABLET PO (21:56)
[2020-04-10] MEDS: Zolpidem Tartrate 5 MG TABLET PO (21:57)
[2020-04-11] VITALS: BP 141/82; PULSE 76; RESP 18; TEMP 36.2; O2SAT 96
[2020-04-11] MEDS: methylPREDNISolone Sod Succ/PF 125 MG/2 ML VIAL 60 MG IVPUSH ×2 (00:05→07:44)
[2020-04-11] MEDS: 0.9 % Sodium Chloride Flush 3 ML SYRINGE IVFLUSH ×2 (00:05→07:44)
[2020-04-11] MEDS: Acetaminophen 325 MG TABLET 650 MG PO (01:51)
[2020-04-11] MEDS: TiZANidine HCL 4 MG TABLET 2 MG PO (01:51)
[2020-04-11 04:00] VITALS: BP 141/82; PULSE 62; RESP 16; TEMP 36.3; O2SAT 2
[2020-04-11 04:06] LABS: Immunoglobulin E 262 kU/L (<OR=114)
[2020-04-11 05:23] VITALS: O2SAT 98
[2020-04-11 05:49] VITALS: BMI 44.8
[2020-04-11] MEDS: oxyCODONE HCl Immed Release 5 MG TABLET 10 MG PO (06:18)
[2020-04-11] MEDS: ondansetron HCL 4 MG/2 ML VIAL IVPUSH (06:50)
[2020-04-11 06:58] LABS: MANUAL DIFF FLAG NO
[2020-04-11] MEDS: Albuterol/Iprat 2.5/0.5MG 3 ML AMPUL.NEB INHALE (07:04)
[2020-04-11 07:08] LABS: Basophils Percent Auto 0.1 % (0-2); Hematocrit 37.1 % (37-47); Hemoglobin 11.7 g/dl (12.0-16.0); Imm Gran Abs Auto 0.16 X10*3/uL (0.00-0.03); Lymphocytes Absolute Auto 2.3 X10*3/uL (1.2-4.9); Lymphocytes Percent Auto 13.9 % (20-40); Mean Corpuscular HGB Conc 31.5 g/dl (31.0-35.0); Mean Corpuscular Hemoglobin 26.7 pg (27.0-33.0); Mean Corpuscular Volume 84.5 fL (80-98); Mean Platelet Volume 9.1 fL (9.4-12.3); Monocytes Absolute Auto 0.5 X10*3/uL (0.1-1.2); Monocytes Percent Auto 3.2 % (2-11); Neutrophils Absolute Auto 13.5 X10*3/uL (2.0-8.3); Neutrophils Percent Auto 81.8 % (45-73); Platelet Count 504 X10*3/uL (160-400); Red Blood Count 4.39 X10*6/uL (4.20-5.50); Red Cell Distribution Width 16.3 % (11.0-16.0); White Blood Count 16.5 X10*3/uL (4.8-10.8)
[2020-04-11 07:36] LABS: Anion Gap 13 (12-20); Blood Urea Nitrogen 17 mg/dL (9-16); Calcium 8.2 mg/dL (8.4-10.2); Carbon Dioxide 28 mmol/L (22-29); Chloride 102 mmol/L (96-108); Creatinine Clr Calc Pharmacy 113.4; Estimated Glomerular Filt Rate > 60; Glucose Fasting 113 mg/dL (60-99); Potassium 4.5 mmol/l (3.3-5.1); Sodium 138 mmol/L (135-145)
[2020-04-11] MEDS: ALPRAZolam 0.25 MG TABLET PO (07:44)
[2020-04-11] MEDS: Gabapentin 300 MG CAPSULE PO (07:44)
[2020-04-11 07:59] VITALS: BP 142/74; PULSE 70; RESP 18; TEMP 36.2; O2SAT 98
--- NOTE | 2020-04-11 09:37 | PM.DS ---
DS: Providers Provider Date of admission: 04/08/20 07:37 Primary care physician: Unknown Physician Consults: 04/08/20 10:18 Consult to Infectious Diseases Routine Consulting Provider: Marisela Carrion Reason for consultation: Atypical Pneumonia, +Rhino virus Has provider been notified: Yes 04/08/20 14:48 Consult to Pulmonology Routine Consulting Provider: Devin Llanos Reason for consultation: Atypical Pneumonia Has provider been notified: Yes DS: Diagnosis Discharge Diagnosis (1) Acute respiratory failure with hypoxia: Status: Acute (2) Atypical pneumonia: Status: Acute (3) Asthma: Status: Acute (4) Enterovirus infection: Status: Acute (5) Morbid obesity: Status: Acute DS: Summary Hospital Course Hospital Course: Patient was admitted for acute hypoxic respiratory failure and acute asthma exacerbation secondary to entero / rhinovirus pneumonia. She was negative for COVID-19, she also tests negative for all other organisms on respiratory viral panel, HIV, urine Legionella And autoimmune workup are still pending. Patient was treated with IV Solu-Medrol, bronchodilators, and Levaquin. She notes improvement in her symptoms and was able to ambulate on room air with minimal shortness of breath. She will be discharged home on prednisone taper and 7 more days of Levaquin. Time Spent with Patient Time attestation: Total time spent providing and/or coordinating discharge services: Physical Exam Vital Signs: Vital Signs: Last Vital Signs Temp 97.1 F 04/11/20 07:59 Pulse 70 04/11/20 07:59 Resp 18 04/11/20 07:59 BP 142/74 H 04/11/20 07:59 Pulse Ox 98 04/11/20 07:59 Body Mass Index 44.8 General: AO X 3, no acute distress Resp: diminished CVS: S1,S2,RRR GI: soft, non tender, non distended Neuro: motor grossly intact Psych: appropriate affect DS: Data Data Completed and Pending Labs on day of discharge: 04/07/20 XR chest 1V Stat 04/07/20 20:57 Vital Signs Q30M 04/07/20 21:09 Basic Metabolic Panel Stat Complete Blood Count Auto Diff Stat Lactic Acid Stat Procalcitonin Stat Prothrombin Time INR Stat 04/07/20 21:57 CT angio chest PE protocol Stat 04/07/20 22:00 0.9 % Sodium Chloride [Ns] 1,000 ml IV Wide Open mls/hr 04/07/20 22:04 dexAMETHasone sod phosphate [Decadron] 10 mg 0.9 % Sodium Chloride [Ns] 50 ml IV ONCE 04/07/20 22:15 cefTRIAXone sodium [Rocephin] 1 gm 0.9 % Sodium Chloride [Ns] 50 ml IV Q12H 04/07/20 22:36 cefTRIAXone sodium [Rocephin] 1 gm .ROUTE .STK-MED ONE 04/07/20 22:45 iohexoL 350 MG/ML [Omnipaque 350 MG/ML] 100 ml IV ONCE ONE 04/07/20 23:37 SARS COV2 PCR INHOUSE Stat 04/07/20 23:54 Acetaminophen [Tylenol] 650 mg PO ONCE ONE Ibuprofen [Motrin] 600 mg PO ONCE ONE 04/08/20 06:20 ED Diet NOW 04/08/20 07:34 Transfer Order Routine 04/08/20 07:38 Acetaminophen [Tylenol] 650 mg PO ONCE ONE 04/08/20 07:45 Azithromycin [Zithromax] 500 mg 0.9 % Sodium Chloride [Ns] 250 ml IV Q24H 04/08/20 07:57 Azithromycin [Zithromax] 500 mg IV .STK-MED ONE 04/08/20 08:23 Basic Metabolic Panel Stat C Reactive Protein Stat Complete Blood Count no Diff Stat Lactate Dehydrogenase Stat Procalcitonin Stat Resp pnl result confirmation Stat Respiratory Panel Stat 04/08/20 08:47 Azithromycin [Zithromax] 500 mg IV .STK-MED ONE 04/08/20 10:45 Acetaminophen Supp [Tylenol Supp] 650 mg MD Q6H PRN 04/08/20 10:45 Cont. Telemetry w/Vital Sign limit Q4HR Pulse Oximetry Q4HR 04/08/20 11:21 cefTRIAXone sodium [Rocephin] 1 gm .ROUTE .STK-MED ONE 04/08/20 11:43 RT Smoking Initial Cessation ONCE 04/08/20 12:01 D Dimer Stat 04/08/20 15:07 SARS COV2 IgG Routine 04/08/20 15:30 Erythrocyte Sedimentation Rate Routine Immunoglobulin E Routine 04/08/20 20:16 cefTRIAXone sodium [Rocephin] 1 gm .ROUTE .STK-MED ONE 04/08/20 20:24 Albuterol/Iprat 2.5/0.5MG 3 ML [Duoneb] 3 ml INHALE .STK-MED ONE 04/08/20 21:13 HIV Ab/Ag Routine 04/09/20 03:42 Drug Screen Urine Routine 04/09/20 07:29 Complete Blood Count Auto Diff DAILY@0600 SLIDE REVIEW Routine 04/09/20 09:00 dexAMETHasone [Decadron] 6 mg PO DAILY 04/09/20 21:54 LORazepam [Ativan] 1 mg IVPUSH ONCE ONE diphenhydrAMINE HCL [Benadryl] 25 mg IVPUSH ONCE ONE 04/10/20 02:17 Doxepin HCl [Sinequan] 25 mg PO ONCE ONE 04/11/20 06:40 BMP [Basic Metabolic Panel Fasting] Routine Complete Blood Count Auto Diff Routine Laboratory Last Values WBC 16.5 X10*3/uL (4.8-10.8) H 04/11/20 06:40 RBC 4.39 X10*6/uL (4.20-5.50) 04/11/20 06:40 Hgb 11.7 g/dl (12.0-16.0) L 04/11/20 06:40 Hct 37.1 % (37-47) 04/11/20 06:40 MCV 84.5 fL (80-98) 04/11/20 06:40 MCH 26.7 pg (27.0-33.0) L 04/11/20 06:40 MCHC 31.5 g/dl (31.0-35.0) 04/11/20 06:40 RDW 16.3 % (11.0-16.0) H 04/11/20 06:40 Plt Count 504 X10*3/uL (160-400) H 04/11/20 06:40 MPV 9.1 fL (9.4-12.3) L 04/11/20 06:40 Immature Gran % (Auto) 1.0 % (0.0-0.4) H 04/11/20 06:40 Neut % (Auto) 81.8 % (45-73) H 04/11/20 06:40 Lymph % (Auto) 13.9 % (20-40) L 04/11/20 06:40 Har[place] % (Auto) 3.2 % (2-11) 04/11/20 06:40 Eos % (Auto) 0.0 % (0-4) 04/11/20 06:40 Baso % (Auto) 0.1 % (0-2) 04/11/20 06:40 Lymph # (Auto) 2.3 X10*3/uL (1.2-4.9) 04/11/20 06:40 Harney # (Auto) 0.5 X10*3/uL (0.1-1.2) 04/11/20 06:40 Eos # (Auto) 0.0 X10*3/uL (0.0-0.4) 04/11/20 06:40 Baso # (Auto) 0.0 X10*3/uL (0.0-0.2) 04/11/20 06:40 Abs Immat Gran (auto) 0.16 X10*3/uL (0.00-0.03) H 04/11/20 06:40 Absolute Neuts (auto) 13.5 X10*3/uL (2.0-8.3) H 04/11/20 06:40 Absolute Nucleated RBC 0.000 X10*3/uL (0.0-0.012) 04/11/20 06:40 Nucleated RBC % (auto) 0.0 /100WBC (0.0-0.2) 04/11/20 06:40 Smear Tech's Comments VERIFIED 04/09/20 07:29 ESR 51 MM/HR (0-20) H 04/08/20 15:30 PT 13.9 SEC (10.8-13.0) H 04/07/20 21:09 INR 1.2 (0.9-1.1) H 04/07/20 21:09 D-Dimer 295 NG/ML 04/08/20 12:01 Sodium 138 mmol/L (135-145) 04/11/20 06:40 Potassium 4.5 mmol/l (3.3-5.1) 04/11/20 06:40 Chloride 102 mmol/L (96-108) 04/11/20 06:40 Carbon Dioxide 28 mmol/L (22-29) 04/11/20 06:40 Anion Gap 13 (12-20) 04/11/20 06:40 BUN 17 mg/dL (9-16) H D 04/11/20 06:40 Creatinine 0.76 mg/dL (0.5-1.4) 04/11/20 06:40 Estim Creat Clear Calc 113.4 04/11/20 06:40 Estimated GFR > 60 04/11/20 06:40 Random Glucose 132 mg/dL (60-115) H D 04/08/20 08:23 Fasting Glucose 113 mg/dL (60-99) H 04/11/20 06:40 Lactic Acid 0.9 mmol/L (0.5-2.0) 04/07/20 21:09 Calcium 8.2 mg/dL (8.4-10.2) L 04/11/20 06:40 Lactate Dehydrogenase 286 U/L (122-220) H 04/08/20 08:23 C-Reactive Protein 15.29 mg/dL (< or = 0.50) H 04/08/20 08:23 Procalcitonin 0.04 ng/mL 04/08/20 08:23 Urine Opiates Screen POSITIVE (Not Detect) H 04/09/20 03:42 Ur Barbiturates Screen Not Detected (Not Detect) 04/09/20 03:42 Ur Phencyclidine Scrn Not Detected (Not Detect) 04/09/20 03:42 Ur Amphetamines Screen Not Detected (Not Detect) 04/09/20 03:42 U Benzodiazepines Scrn Not Detected (Not Detect) 04/09/20 03:42 Urine Cocaine Screen Not Detected (Not Detect) 04/09/20 03:42 U Marijuana (THC) Screen POSITIVE (Not Detect) H 04/09/20 03:42 IgE 262 kU/L (<KS=051) H 04/08/20 15:30 Respiratory Panel [place]ount See Note 04/08/20 08:23 Adenovirus (Rapid PCR) Not Detected (Not Detect.) 04/08/20 08:23 B.pert (TEM-PCR) Not Detected (Not Detect.) 04/08/20 08:23 B.parapertussis DNA PCR Not Detected (Not Detect.) 04/08/20 08:23 C. pneumoniae DNA (PCR) Not Detected (Not Detect.) 04/08/20 08:23 Coronavirus (PCR) NEGATIVE (Negative) 04/07/20 23:37 Coronavirus OC43 (PCR) Not Detected (Not Detect.) 04/08/20 08:23 Coronavirus HKU1 (PCR) Not Detected (Not Detect.) 04/08/20 08:23 Coronavirus 229E (PCR) Not Detected (Not Detect.) 04/08/20 08:23 Coronavirus NL63 (PCR) Not Detected (Not Detect.) 04/08/20 08:23 HIV 1&2 Ab/P24 Ag 4thGn Nonreactive (Nonreactive) 04/08/20 21:13 Human Metapneumovir PCR Not Detected (Not Detect.) 04/08/20 08:23 Influenza A (RT-PCR) Not Detected (Not Detect.) 04/08/20 08:23 Influenza B (RT-PCR) Not Detected (Not Detect.) 04/08/20 08:23 M. pneumoniae (PCR) Not Detected (Not Detect.) 04/08/20 08:23 Parainfluenza 1 (PCR) Not Detected (Not Detect.) 04/08/20 08:23 Parainfluenza 2 (PCR) Not Detected (Not Detect.) 04/08/20 08:23 Parainfluenza 3 (PCR) Not Detected (Not Detect.) 04/08/20 08:23 Parainfluenza 4 (PCR) Not Detected (Not Detect.) 04/08/20 08:23 RSV (PCR) Not Detected (Not Detect.) 04/08/20 08:23 Entero/Rhino (PCR) Detected (Not Detect.) A 04/08/20 08:23 SARS-CoV-2 RNA (RT-PCR) Not Detected (Not Detect.) 04/08/20 08:23 SARS-CoV-2 IgG Ab Negative (Negative) 04/08/20 15:07 Preliminary micro results at discharge 04/07/20 21:30 Blood Culture - Preliminary Blood - Venous No growth after 48 hours. 04/07/20 21:30 Blood Culture - Preliminary Blood - Venous No growth after 48 hours. Discharge Plan Discharge Patient Disposition: Home, Self-Care Referrals: Physician,Unknown [Primary Care Provider] - Discharge Medications: New levofloxacin 750 mg Tablet 750 mg PO Q24H Qty: 7 RF: 0 prednisone 10 mg tablet 40 mg PO DAILY Qty: 50 RF: 0 Continued doxepin 50 mg capsule 50 mg PO BEDTIME RF: 0 tizanidine 2 mg tablet 2 mg PO BID PRN (Reason: Pain) RF: 0 levorphanol tartrate 2 mg tablet 2 mg PO BID RF: 0 oxycodone-acetaminophen 10-325 mg tablet 1 tab PO Q6H PRN (Reason: severe pain) RF: 0 gabapentin 300 mg capsule 600 mg PO BEDTIME RF: 0 gabapentin 300 mg capsule 300 mg PO DAILY@0730 RF: 0 diclofenac sodium 50 mg tablet,delayed release (DR/EC) 50 mg PO BID PRN (Reason: pain) RF: 0 Flovent HFA 110 mcg/actuation HFA aerosol inhaler 2 puff inhalation BID RF: 0 Discharge Orders: Discharge Order (Routine); Ordered 04/11/20 Ordered By: Joshua Langston Activity on Discharge: As tolerated Visit Report Forms: Patient Portal Discharge page Care Plan Goals: recovery Health Concerns: sob Plan of Treatment: prednisone taper, 7 days levaquin, follow up urine legionella
--- NOTE | 2020-04-11 09:38 | MHC.CM.PN ---
PATIENT IS RETURNING HOME WITH NO NEED FOR SERVICES. RN AWARE OF PLAN.
[2020-04-11 15:02] LABS: Anti Nuclear Antibody Screen NEGATIVE (NEGATIVE)
[2020-04-11 15:51] LABS: Cyclic Citrullinated Peptide <16 UNITS
[2020-04-14 21:22] LABS: Legionella Ag Urine Not Detected (Not Detected)
== END 2020-04-11 10:35 | disposition home or self-care (01) | DRG 139 ==
LOC: HO.ED 04-08 04:45 → HO.IMC 04-08 08:41 → HO.S3 04-08 10:31
PROVIDERS: Hospitalist; Internal Medicine; Admitting Provider Internal Medicine; Emergency Provider Emergency Medicine Emergency Medical Services; Visit Provider Internal Medicine
DX: J12.89 Other viral pneumonia (principal); J96.01 Acute respiratory failure with hypoxia; E66.01 Morbid (severe) obesity due to excess calories; Z68.41 Body mass index [BMI] 40.0-44.9, adult; J45.901 Unspecified asthma with (acute) exacerbation; F17.210 Nicotine dependence, cigarettes, uncomplicated; Z71.6 Tobacco abuse counseling; Z20.828 Contact with and (suspected) exposure to other viral communicable diseases; B97.10 Unspecified enterovirus as the cause of diseases classified elsewhere; Z88.2 Allergy status to sulfonamides; Z79.51 Long term (current) use of inhaled steroids; Z79.899 Other long term (current) drug therapy
CPT/HCPCS: 36415; 71045; 71275; 80048; 80307; 82785; 83605; 83615; 84145; 85025; 85027; 85379; 85610; 85652; 86038; 86039; 86140; 86200; 86769; 87040; 87389; 87449; 87633; 94640; 96365; 99285; J0456; J0696; J1100; J1200; J1650; J2060; J2405; J2930; Q9967; U0003

== ENCOUNTER 2020-05-08 13:07 | Outpatient (REF) | payer OTHER, SELFPAY | END 2020-05-08 13:08 | disposition home or self-care (01) | LOC: HO.LAB 13:07 | PROVIDERS: Visit Provider Internal Medicine | DX: Z20.828 Contact with and (suspected) exposure to other viral communicable diseases (principal) | CPT/HCPCS: C9803; U0003 ==

== ENCOUNTER → 2020-05-18 09:16 | Outpatient (BNVA) | payer OTHER, SELFPAY | PROVIDERS: Visit Provider Anesthesiology | DX: Z76.89 Persons encountering health services in other specified circumstances (principal) ==

== ENCOUNTER 2020-06-15 10:15 | Outpatient (REF) | payer OTHER, SELFPAY ==
--- NOTE | 2020-06-15 10:38 | XR_ITS ---
EXAMINATION: XR KNEE, RIGHT XR KNEE, LEFT CLINICAL INFORMATION: Primary osteoarthritis. COMPARISON: Left knee of 11/09/2019 and bilateral knee of 09/23/2018. TECHNIQUE: 4 views of each knee. FINDINGS: Four views of the left knee do not demonstrate any evidence of acute fracture or dislocation. Medial and lateral joint spaces are maintained. No effusion is appreciated. There is narrowing of the lateral facet of the patellofemoral joint with some marginal spurring present. Four views of the right knee do not demonstrate any evidence of acute fracture or dislocation. Right knee joint spaces are maintained. There is mild spurring about the lateral facet of the patellofemoral joint. Patellar spurs at site of insertion of the quadriceps tendon is present. No effusion. XR/XR knee LT 3V IMPRESSION: Bilateral patellofemoral joint degenerative change left greater than right.
--- NOTE | 2020-06-15 10:38 | XR_ITS ---
EXAMINATION: XR KNEE, RIGHT XR KNEE, LEFT CLINICAL INFORMATION: Primary osteoarthritis. COMPARISON: Left knee of 11/09/2019 and bilateral knee of 09/23/2018. TECHNIQUE: 4 views of each knee. FINDINGS: Four views of the left knee do not demonstrate any evidence of acute fracture or dislocation. Medial and lateral joint spaces are maintained. No effusion is appreciated. There is narrowing of the lateral facet of the patellofemoral joint with some marginal spurring present. Four views of the right knee do not demonstrate any evidence of acute fracture or dislocation. Right knee joint spaces are maintained. There is mild spurring about the lateral facet of the patellofemoral joint. Patellar spurs at site of insertion of the quadriceps tendon is present. No effusion. XR/XR knee RT 3V IMPRESSION: Bilateral patellofemoral joint degenerative change left greater than right.
[2020-06-15 11:18] LABS: MANUAL DIFF FLAG NO
[2020-06-15 11:33] LABS: Basophils Absolute Auto 0.1 X10*3/uL (0.0-0.2); Basophils Percent Auto 0.8 % (0-2); Eosinophils Absolute Auto 0.3 X10*3/uL (0.0-0.4); Eosinophils Percent Auto 3.1 % (0-4); Hematocrit 38.2 % (37-47); Hemoglobin 12.2 g/dl (12.0-16.0); Imm Gran Abs Auto 0.03 X10*3/uL (0.00-0.03); Imm Gran Pct Auto 0.3 % (0.0-0.4); Lymphocytes Absolute Auto 3.2 X10*3/uL (1.2-4.9); Lymphocytes Percent Auto 31.7 % (20-40); Mean Corpuscular HGB Conc 31.9 g/dl (31.0-35.0); Mean Corpuscular Hemoglobin 27.4 pg (27.0-33.0); Mean Corpuscular Volume 85.8 fL (80-98); Mean Platelet Volume 9.9 fL (9.4-12.3); Monocytes Absolute Auto 0.6 X10*3/uL (0.1-1.2); Neutrophils Absolute Auto 5.9 X10*3/uL (2.0-8.3); Neutrophils Percent Auto 58.1 % (45-73); Platelet Count 413 X10*3/uL (160-400); Red Blood Count 4.45 X10*6/uL (4.20-5.50); Red Cell Distribution Width 18.2 % (11.0-16.0); White Blood Count 10.2 X10*3/uL (4.8-10.8)
[2020-06-15 12:01] LABS: Anion Gap 13 (12-20); Blood Urea Nitrogen 9 mg/dL (9-16); Calcium 8.5 mg/dL (8.4-10.2); Carbon Dioxide 21 mmol/L (22-29); Chloride 112 mmol/L (96-108); Estimated Glomerular Filt Rate > 60; Glucose Random 95 mg/dL (60-115); Sodium 142 mmol/L (135-145)
== END 2020-06-15 10:16 | disposition home or self-care (01) ==
LOC: HO.LAB 10:15
PROVIDERS: Absent Provider Anesthesiology; PCP Internal Medicine; Visit Provider Ophthalmology
DX: M17.0 Bilateral primary osteoarthritis of knee (principal); M10.9 Gout, unspecified
CPT/HCPCS: 36415; 73562; 80048; 85025

== ENCOUNTER → 2020-07-25 12:10 | Outpatient (BNVA) | payer OTHER, SELFPAY | PROVIDERS: PCP Internal Medicine; Visit Provider Surgery ==

== ENCOUNTER 2020-08-26 09:35 | Outpatient (REF) | payer OTHER, SELFPAY ==
--- NOTE | ~2020-08-26 | MM_ITS ---
EXAMINATION: MM SCREENING DIGITAL BREAST TOMOSYNTHESIS, BILATERAL CLINICAL INFORMATION: Screening. Asymptomatic. The lifetime risk of breast cancer based on the Tyrer-Cuzick Model is 22.1%. Additional annual screening with breast MRI may be of benefit in women with a Score of 20% or greater. COMPARISON: Mammography: None TECHNIQUE: Digital breast tomosynthesis is performed in both the craniocaudal and mediolateral oblique views along with computer-aided detection (CAD). Synthesized 2D images are generated from the tomosynthesis. FINDINGS: There are scattered areas of fibroglandular density (ACR BI-RADS breast composition Category b). Patient is status post previous right breast surgery with associated scarring and dystrophic calcifications. There are skin calcifications noted within the left breast. No suspicious masses identified. MM/MM tomosynthesis screening BI IMPRESSION: No specific mammographic evidence to suggest malignancy. ASSESSMENT: BI-RADS 2: Benign RECOMMENDATION: Routine annual mammography screening. This patient's information was entered into a reminder system with a target due date for their next mammogram.
== END 2020-08-26 09:36 | disposition home or self-care (01) ==
LOC: HO.MAMMO 09:35
PROVIDERS: PCP Internal Medicine; Visit Provider Internal Medicine
DX: Z12.31 Encounter for screening mammogram for malignant neoplasm of breast (principal)
CPT/HCPCS: 77063; 77067

== ENCOUNTER 2021-02-28 19:50 | Emergency (ER) | payer OTHER, SELFPAY ==
[2021-02-28 20:42] VITALS: BP 103/77; PULSE 119; RESP 18; TEMP 37.1; O2SAT 95; BMI 43.0
--- NOTE | 2021-02-28 21:00 | ED_ITS ---
HPI - Female Genitourinary General Chief complaint: Urogenital-Female Stated complaint: Kidney Stones? Time Seen by Provider: 02/28/21 21:00 Source: patient Mode of arrival: ambulatory History of Present Illness HPI Narrative: 3 days of painful urination and 1 day of nausea and vomiting MD elicited complaint: dysuria and UTI Onset (ago): day(s) Severity: mild Female Urogenital Radiation: Non-Radiating Quality of pain: sharp Consistency: constant Urinary symptoms: Dysuria and Urgency Associated symptoms: chills, nausea and vomiting Related Data Home Medications Medication Instructions Recorded Confirmed diclofenac sodium 50 mg 50 mg PO BID PRN 04/08/20 07/25/20 tablet,delayed release doxepin 50 mg capsule 50 mg PO BEDTIME 04/08/20 07/25/20 fluticasone propionate 110 2 puff INHALATION BID 04/08/20 07/25/20 mcg/actuation HFA aerosol inhaler (Flovent HFA) gabapentin 300 mg capsule 300 mg PO DAILY@0730 04/08/20 07/25/20 gabapentin 300 mg capsule 600 mg PO BEDTIME 04/08/20 07/25/20 levorphanol tartrate 2 mg tablet 2 mg PO BID 04/08/20 07/25/20 oxycodone-acetaminophen 10 mg-325 1 tab PO Q6H PRN 04/08/20 07/25/20 mg tablet tizanidine 2 mg tablet 2 mg PO BID PRN 04/08/20 07/25/20 acetazolamide 500 mg mg PO 05/18/20 07/25/20 capsule,extended release Previous Rx's Medication Instructions Recorded ipratropium 0.5 mg-albuterol 3 mg 3 ml INHALATION RQ4H PRN #180 ml 04/11/20 (2.5 mg base)/3 mL nebulization soln levofloxacin 750 mg tablet 750 mg PO Q24H #7 tab 04/11/20 prednisone 10 mg tablet 40 mg PO DAILY #50 tab 04/11/20 allopurinol 300 mg tablet 300 mg PO DAILY 30 Days #30 tab 05/18/20 cephalexin 500 mg capsule 500 mg PO QID 7 Days #28 cap 02/28/21 phenazopyridine 100 mg tablet 100 mg PO TID PRN #6 tab 02/28/21 (Pyridium) Allergies Allergy/AdvReac Type Severity Reaction Status Date / Time Sulfa (Sulfonamide Allergy Unknown rash, Verified 02/28/21 20:42 Antibiotics) itching sulfamethoxazole Allergy Unknown RASH Verified 02/28/21 20:42 [From BACTRIM] trimethoprim [From BACTRIM] Allergy Unknown RASH Verified 02/28/21 20:42 Review of Systems Constitutional: Constitutional: Reports no additional constitutional complaint s Eyes: Eyes: Reports no additional eye complaints ENT: Denies dizziness Cardiovascular: Cardiovascular: Reports no additional cardiovascular complaints Respiratory: Respiratory: Reports as per HPI Gastrointestinal: Gastrointestinal: Reports no additional gastrointestinal complaints Genitourinary: Genitourinary: Reports no additional female genitourinary complaints Musculoskeletal: Musculoskeletal: Reports no additional musculoskeletal compla ints Integumentary/Breasts: Skin/Breast: Denies rash Neurologic: Reports system reviewed and no additional complaints, except as documented, Denies dizziness and Denies Sensory deficit (Neuro) Psychiatric: Psychiatric: Denies anxiety PMFSH Past Medical History Medical History Arthritis Asthma Bronchitis Chronic pain Depression Fibromyalgia Fractured spine Gouty arthritis of both knees Lumbar spondylosis Neuralgia Osteoarthritis of both knees Papilledema Pneumonitis Seizure disorder Sleep apnea Surgical History History of fusion of cervical spine History of hip surgery History of hysterectomy History of lumbar fusion History of sleeve gastrectomy Hx laparoscopic cholecystectomy Hx of breast reduction, elective Hx of section Hx of laparoscopic gastric banding Family History Family History Mother No problems noted. Father No problems noted. Brother No problems noted. Son No problems noted. Daughter Hypertension Migraine Obese abdomen Ingrown hair Pre-diabetes Depressed Anxiety Sleep apnea Social History Social History Household Members: Family Housing: Apartment Do you presently have visiting nurse or other home services: No Alcohol intake: never Advance Directives: No Advance Directives Information Provided: No service: No Current occupational status: disabled Physical Exam Vital Signs: Vital Signs: Last Vital Signs Temp 98.8 F 02/28/21 20:42 Pulse 119 H 02/28/21 20:42 Resp 18 02/28/21 20:42 BP 103/77 02/28/21 20:42 Pulse Ox 95 02/28/21 20:42 Body Mass Index 43.0 Const: General: healthy appearing Nutritional Appearance: average body habitus Orientation/consciousness: oriented to person and patient oriented x3 Limitations: no limitations HENMT: Head: Yes normal to inspection Ears: external ears normal General nose exam: Normal external nose present Mouth: Normal oral and palatal mucosa present and oropharynx normal Throat: Yes posterior oropharynx normal Eyes: General: appearance normal, both eyes and all related structures Neck: Other: supple Neck: Yes normal visual inspection Chest: Chest palpation & inspection: normal inspection of the chest Resp: Auscultation: clear to auscultation bilaterally Cardio: Jugular venous distension: no JVD Rate: regular rate Rhythm: regular rhythm Heart sounds: S1 normal heart sound present and S2 normal heart sound present GI: Inspection: Yes normal to inspection Palpation (GI): Soft to palpation, nontender and No hepatosplenomegaly present Auscultation: normal bowel sounds : General: Yes no CVA tenderness Back/Spine/Pelvis: Back: no CVA tenderness Skin: General skin exam: no rashes or lesions noted Neuro: General: oriented to person and patient oriented x3 Cranial nerves: Yes CN's II-XII intact bilaterally Motor exam (neuro): 5/5 motor strength present throughout Sensory Exam: No Sensory deficit (Neuro) Extrem: General: Yes normal to inspection Psych: Appearance: grossly normal Course Reevaluation(s) Reevaluation #1: patient is afebrile and not ill appearing, this is not sepsis. She has had multiple visits with elevated WBC this is higher however. She is clincally able to be discharged. Time: 22:09 [facility] - Female Genitourinary Lab Data Result diagrams: 02/28/21 20:58 02/28/21 20:58 Labs: Lab Results 02/28/21 02/28/21 02/28/21 Range/Units 20:58 20:58 20:58 WBC 24.5 H (4.8-10.8) X10*3/uL RBC 4.41 (4.20-5.50) X10*6/uL Hgb 12.7 (12.0-16.0) g/dl Hct 39.3 (37-47) % MCV 89.1 (80-98) fL MCH 28.8 (27.0-33.0) pg MCHC 32.3 (31.0-35.0) g/dl RDW 15.4 (11.0-16.0) % Plt Count 361 (160-400) X10*3/uL MPV 9.5 (9.4-12.3) fL Immature Gran % (Auto) 0.7 H (0.0-0.4) % Neut % (Auto) 81.4 H (45-73) % Lymph % (Auto) 12.1 L (20-40) % [place] % (Auto) 5.5 (2-11) % Eos % (Auto) 0.1 (0-4) % Baso % (Auto) 0.2 (0-2) % Lymph # (Auto) 3.0 (1.2-4.9) X10*3/uL [place] # (Auto) 1.4 H (0.1-1.2) X10*3/uL Eos # (Auto) 0.0 (0.0-0.4) X10*3/uL Baso # (Auto) 0.1 (0.0-0.2) X10*3/uL Abs Immat Gran (auto) 0.16 H (0.00-0.03) X10*3/uL Absolute Neuts (auto) 20.0 H (2.0-8.3) X10*3/uL Absolute Nucleated RBC 0.000 (0.0-0.012) X10*3/uL Nucleated RBC % (auto) 0.0 (0.0-0.2) /100WBC Sodium 136 (135-145) mmol/L Potassium 4.4 (3.3-5.1) mmol/L Chloride 102 (96-108) mmol/L Carbon Dioxide 25 (22-29) mmol/L Anion Gap 13 (12-20) BUN 12 (9-16) mg/dL Creatinine 1.43 H (0.5-1.4) mg/dL Estim Creat Clear Calc 58.7 Estimated GFR 40 Random Glucose 107 (60-115) mg/dL Calcium 8.3 L (8.4-10.2) mg/dL Total Bilirubin 0.3 (0.0-1.0) mg/dL AST 17 (5-31) U/L ALT 14 (0-31) U/L Alkaline Phosphatase 82 (39-117) U/L Total Protein 6.8 (6.5-8.0) g/dL Albumin 3.9 (3.5-5.0) g/dL Urine Color Urine Appearance Urine pH (5.0-8.0) Ur Specific [place] (1.005-1.025) Urine Protein (NEG-TRACE) MG/DL Urine Glucose (UA) (NEG) MG/DL Urine Ketones (NEG) MG/DL Urine Blood (NEG) Urine Nitrite (NEG) Ur Leukocyte Esterase (NEG) Urine RBC (0) /HPF Urine WBC (0-4) /HPF Urine WBC Clumps Ur Squamous Epith Cells /LPF Urine Bacteria /LPF Urine Test NEGATIVE (NEGATIVE) 02/28/21 Range/Units 20:58 WBC (4.8-10.8) X10*3/uL RBC (4.20-5.50) X10*6/uL Hgb (12.0-16.0) g/dl Hct (37-47) % MCV (80-98) fL MCH (27.0-33.0) pg MCHC (31.0-35.0) g/dl RDW (11.0-16.0) % Plt Count (160-400) X10*3/uL MPV (9.4-12.3) fL Immature Gran % (Auto) (0.0-0.4) % Neut % (Auto) (45-73) % Lymph % (Auto) (20-40) % [place] % (Auto) (2-11) % Eos % (Auto) (0-4) % Baso % (Auto) (0-2) % Lymph # (Auto) (1.2-4.9) X10*3/uL [place] # (Auto) (0.1-1.2) X10*3/uL Eos # (Auto) (0.0-0.4) X10*3/uL Baso # (Auto) (0.0-0.2) X10*3/uL Abs Immat Gran (auto) (0.00-0.03) X10*3/uL Absolute Neuts (auto) (2.0-8.3) X10*3/uL Absolute Nucleated RBC (0.0-0.012) X10*3/uL Nucleated RBC % (auto) (0.0-0.2) /100WBC Sodium (135-145) mmol/L Potassium (3.3-5.1) mmol/L Chloride (96-108) mmol/L Carbon Dioxide (22-29) mmol/L Anion Gap (12-20) BUN (9-16) mg/dL Creatinine (0.5-1.4) mg/dL Estim Creat Clear Calc Estimated GFR Random Glucose (60-115) mg/dL Calcium (8.4-10.2) mg/dL Total Bilirubin (0.0-1.0) mg/dL AST (5-31) U/L ALT (0-31) U/L Alkaline Phosphatase (39-117) U/L Total Protein (6.5-8.0) g/dL Albumin (3.5-5.0) g/dL Urine Color YELLOW Urine Appearance CLOUDY Urine pH 6.5 (5.0-8.0) Ur Specific [place] 1.015 (1.005-1.025) Urine Protein TRACE (NEG-TRACE) MG/DL Urine Glucose (UA) NEG (NEG) MG/DL Urine Ketones NEG (NEG) MG/DL Urine Blood 2+ H (NEG) Urine Nitrite NEG (NEG) Ur Leukocyte Esterase 2+ H (NEG) Urine RBC 10-14 H (0) /HPF Urine WBC TNTC H (0-4) /HPF Urine WBC Clumps NOTED Ur Squamous Epith Cells 2+ /LPF Urine Bacteria 1+ /LPF Urine Test (NEGATIVE) Discharge Plan Discharge Clinical Impression: Urinary tract infection Patient Disposition: Home, Self-Care Instructions: Urinary Tract Infection in Women (ED) Prescriptions: New cephalexin 500 mg capsule 500 mg PO QID 7 Days Qty: 28 RF: 0 phenazopyridine [Pyridium] 100 mg tablet 100 mg PO TID PRN (Reason: pain) Qty: 6 RF: 0 No Action doxepin 50 mg capsule 50 mg PO BEDTIME RF: 0 tizanidine 2 mg tablet 2 mg PO BID PRN (Reason: Pain) RF: 0 levorphanol tartrate 2 mg tablet 2 mg PO BID RF: 0 oxycodone-acetaminophen 10-325 mg tablet 1 tab PO Q6H PRN (Reason: severe pain) RF: 0 gabapentin 300 mg capsule 600 mg PO BEDTIME RF: 0 gabapentin 300 mg capsule 300 mg PO DAILY@0730 RF: 0 diclofenac sodium 50 mg tablet,delayed release (DR/EC) 50 mg PO BID PRN (Reason: pain) RF: 0 Flovent HFA 110 mcg/actuation HFA aerosol inhaler 2 puff inhalation BID RF: 0 levofloxacin 750 mg Tablet 750 mg PO Q24H Qty: 7 RF: 0 prednisone 10 mg tablet 40 mg PO DAILY Qty: 50 RF: 0 ipratropium-albuterol 0.5 mg-3 mg(2.5 mg base)/3 mL Solution For Nebulization 3 ml inhalation RQ4H PRN (Reason: Shortness Of Breath/Wheezing) Qty: 180 RF: 0 acetazolamide 500 mg capsule, extended release PO RF: 0 allopurinol 300 mg tablet 300 mg PO DAILY 30 Days Qty: 30 RF: 9 Referrals: [facility] [Primary Care Provider] - 5 days
[2021-02-28 21:06] LABS: MANUAL DIFF FLAG NO
[2021-02-28 21:08] LABS: Basophils Absolute Auto 0.1 X10*3/uL (0.0-0.2); Basophils Percent Auto 0.2 % (0-2); Eosinophils Percent Auto 0.1 % (0-4); Hematocrit 39.3 % (37-47); Hemoglobin 12.7 g/dl (12.0-16.0); Imm Gran Abs Auto 0.16 X10*3/uL (0.00-0.03); Imm Gran Pct Auto 0.7 % (0.0-0.4); Lymphocytes Percent Auto 12.1 % (20-40); Mean Corpuscular HGB Conc 32.3 g/dl (31.0-35.0); Mean Corpuscular Hemoglobin 28.8 pg (27.0-33.0); Mean Corpuscular Volume 89.1 fL (80-98); Mean Platelet Volume 9.5 fL (9.4-12.3); Monocytes Absolute Auto 1.4 X10*3/uL (0.1-1.2); Monocytes Percent Auto 5.5 % (2-11); Neutrophils Percent Auto 81.4 % (45-73); Platelet Count 361 X10*3/uL (160-400); Red Blood Count 4.41 X10*6/uL (4.20-5.50); Red Cell Distribution Width 15.4 % (11.0-16.0); White Blood Count 24.5 X10*3/uL (4.8-10.8)
[2021-02-28 21:09] LABS: Appearance Urine CLOUDY; Color Urine YELLOW; Glucose Urine UA NEG (NEG); Leukocyte Esterase Urine 2+ (NEG); Nitrite Urine NEG (NEG); PH 6.5 (5.0-8.0); Specific Gravity - Urine 1.015 (1.005-1.025); UACC Culture Trigger YES; Urine Blood 2+ (NEG); Urine Ketones NEG (NEG); Urine Protein TRACE MG/DL (NEG-TRACE)
[2021-02-28 21:10] LABS: UPreg QC Valid YES; Urine Pregnancy NEGATIVE (NEGATIVE)
[2021-02-28 21:20] LABS: Bacteria Urine 1+ /LPF; Squamous Epithelial Cell Urine 2+ /LPF; WBC Clumps Urine NOTED; WBC Urine TNTC /HPF (0-4)
[2021-02-28] MEDS: ondansetron HCL 4 MG/2 ML VIAL IVPUSH (21:21)
[2021-02-28] MEDS: 0.9 % Sodium Chloride 1,000 ML 999 ML IVCONT (21:21)
[2021-02-28] MEDS: Phenazopyridine HCL 100 MG TABLET PO (21:21)
[2021-02-28 21:28] LABS: Alanine Aminotransferase 14 U/L (0-31); Albumin Level 3.9 g/dL (3.5-5.0); Alkaline Phosphatase 82 U/L (39-117); Anion Gap 13 (12-20); Aspartate Amino Transferase 17 U/L (5-31); Bilirubin Total 0.3 mg/dL (0.0-1.0); Blood Urea Nitrogen 12 mg/dL (9-16); Calcium 8.3 mg/dL (8.4-10.2); Carbon Dioxide 25 mmol/L (22-29); Chloride 102 mmol/L (96-108); Creatinine Clr Calc Pharmacy 58.7; Estimated Glomerular Filt Rate 40; Glucose Random 107 mg/dL (60-115); Potassium 4.4 mmol/L (3.3-5.1); Sodium 136 mmol/L (135-145); Total Protein 6.8 g/dL (6.5-8.0)
[2021-02-28] MEDS: cefTRIAXone sodium 1 GM in 0.9 % Sodium Chloride 50 ML IV (22:23)
[2021-02-28 22:56] VITALS: BP 102/66; PULSE 100; RESP 16; TEMP 37; O2SAT 94
== END 2021-02-28 22:56 | disposition home or self-care (01) ==
PROVIDERS: Emergency Provider Emergency Medicine
DX: N39.0 Urinary tract infection, site not specified (principal); R30.0 Dysuria; Z79.899 Other long term (current) drug therapy; Z20.822 Contact with and (suspected) exposure to COVID-19
CPT/HCPCS: 36415; 80053; 81001; 81025; 85025; 87086; 87186; 96361; 96365; 96375; 99284; J0696; J2405

== ENCOUNTER 2021-04-19 11:07 | Outpatient (REF) | payer OTHER, SELFPAY ==
[2021-04-19 11:29] LABS: MANUAL DIFF FLAG NO
[2021-04-19 11:54] LABS: Basophils Absolute Auto 0.1 X10*3/uL (0.0-0.2); Basophils Percent Auto 0.6 % (0-2); Eosinophils Absolute Auto 0.3 X10*3/uL (0.0-0.4); Eosinophils Percent Auto 2.7 % (0-4); Hematocrit 40.4 % (37.0-47.0); Hemoglobin 12.9 g/dl (12.0-16.0); Imm Gran Abs Auto 0.03 X10*3/uL (0.00-0.03); Imm Gran Pct Auto 0.3 % (0.0-0.4); Lymphocytes Percent Auto 30.3 % (20-40); Mean Corpuscular HGB Conc 31.9 g/dl (31.0-35.0); Mean Corpuscular Hemoglobin 28.2 pg (27.0-33.0); Mean Corpuscular Volume 88.4 fL (80.0-98.0); Mean Platelet Volume 9.5 fL (9.4-12.3); Monocytes Absolute Auto 0.5 X10*3/uL (0.1-1.2); Neutrophils Absolute Auto 6.1 x10*3/uL (2.0-8.3); Neutrophils Percent Auto 61.1 % (45-73); Platelet Count 380 X10*3/uL (160-400); Red Blood Count 4.57 X10*6/uL (4.20-5.50); Red Cell Distribution Width 15.6 % (11.0-16.0)
[2021-04-19 13:17] LABS: Alanine Aminotransferase 16 U/L (0-31); Alkaline Phosphatase 72 U/L (39-117); Anion Gap 9 (12-20); Aspartate Amino Transferase 15 U/L (5-31); Bilirubin Total 0.2 mg/dL (0.0-1.0); Blood Urea Nitrogen 10 mg/dL (9-16); Calcium 8.7 mg/dL (8.4-10.2); Carbon Dioxide 29 mmol/L (22-29); Chloride 105 mmol/L (96-108); Cholesterol 199 mg/dL; Estimated Glomerular Filt Rate > 60; Glucose Random 89 mg/dL (60-115); HDL Cholesterol 41 mg/dL; LDL Cholesterol Calculated 124 mg/dl; Potassium 4.3 mmol/L (3.3-5.1); Sodium 139 mmol/L (135-145); Total Protein 6.7 g/dL (6.5-8.0); Triglycerides 170 mg/dL
[2021-04-19 13:29] LABS: Thyroid Stimulating Hormone 0.62 uIU/mL (0.32-4.0)
== END 2021-04-19 11:08 | disposition home or self-care (01) ==
LOC: HO.LAB 11:07
PROVIDERS: PCP Internal Medicine; Visit Provider Internal Medicine
DX: Z00.01 Encounter for general adult medical examination with abnormal findings (principal); D50.9 Iron deficiency anemia, unspecified; E78.00 Pure hypercholesterolemia, unspecified; G47.33 Obstructive sleep apnea (adult) (pediatric); G93.2 Benign intracranial hypertension; I10 Essential (primary) hypertension
CPT/HCPCS: 36415; 80053; 80061; 84443; 85025

== ENCOUNTER 2021-07-22 17:02 | Emergency (ER) | payer OTHER, SELFPAY ==
--- NOTE | ~2021-07-22 | XR_ITS ---
EXAMINATION: XR HIP, RIGHT CLINICAL INFORMATION: Right hip pain with history of surgery COMPARISON: CT abdomen pelvis 03/08/2020 TECHNIQUE: Single view pelvis with 2 additional views of the right hip. FINDINGS: Lumbar fixation hardware is present at L4-L5. 2 screws are present in the intertrochanteric region of the right hip. Appearances are unchanged when compared to the prior CT. No acute fracture or bony destructive lesions seen. XR/XR hip RT min 2V IMPRESSION: Normal postoperative appearances as described above. 2 screws are noted in the intertrochanteric region of the right. No acute osseous finding.
[2021-07-22 17:12] VITALS: BP 141/85; PULSE 120; RESP 18; TEMP 36.6; O2SAT 99; BMI 43.9
[2021-07-22] MEDS: Ibuprofen 800 MG TABLET PO (18:21)
[2021-07-22] MEDS: oxyCODONE HCl Immed Release 5 MG TABLET PO (18:22)
--- NOTE | 2021-07-22 18:23 | ED_ITS ---
HPI - Extremity Problem General Chief complaint: Extremity Problem <PO Angela Last Filed: 07/22/21 18:41> Stated complaint: screws in right hip <OP Angela Last Filed: 07/22/21 18:41> Time Seen by Provider: 07/22/21 17:59 <PO Angela Last Filed: 07/22/21 18:41> Source: patient <PO Angela Last Filed: 07/22/21 18:41> Mode of arrival: ambulatory <PO Angela Last Filed: 07/22/21 18:41> Limitations: no limitations <PO Angela Last Filed: 07/22/21 18:41> History of Present Illness HPI Narrative: 40-year-old female with a past medical history of diabetes, asthma, arthritis, fibromyalgia, obesity, chronic pain, seizure disorder and surgery to the right hip with screws approximately 1 year ago after a hip fracture presenting to the ED with complaints of a traumatic worsening right hip pain with associated lower back pain radiating down her leg with associated numbness. She reports that this has started over the past few days and she has been trying [id number] medication no symptomatic relief. She denies any fevers, chills, dizziness, headaches, neck pain/stiffness, trouble swallowing or breathing, chest pain or shortness of breath, dyspnea exertion, orthopnea, palpitations, nausea/vomiting/diarrhea, abdominal pain, dysuria, hematuria, abnormal vaginal discharge, weakness, urinary or bowel incontinence or retention, saddle anesthesia, recent falls or trauma, rashes or any other symptoms complaints or concerns at this time. <PO Angela Last Filed: 07/22/21 18:41> MD Complaint: extremity pain <PO Angela Last Filed: 07/22/21 18:41> Onset (ago): day(s) <PO Angela Last Filed: 07/22/21 18:41> Pain Consistency: constant <PO Angela Last Filed: 07/22/21 18:41> Location: right and lower extremity (Hip) <PO Angela Last Filed: 07/22/21 18:41> Severity scale (1-10): >10 <PO Angela - Last Filed: 07/22/21 18:41> Quality: aching and constant <PO Angela Last Filed: 07/22/21 18:41> Radiation: distal <PO Angela Last Filed: 07/22/21 18:41> Relieving factors: nothing <PO Angela Last Filed: 07/22/21 18:41> Exacerbating factors: range of motion, weight bearing, walking and palpation <PO Angela Last Filed: 07/22/21 18:41> Associated symptoms: other (Back pain and numbness to the right lower extremity) <PO Angela Last Filed: 07/22/21 18:41> Related Data Home medications: Home Medications Medication Instructions Recorded Confirmed diclofenac sodium 50 mg 50 mg PO BID PRN 04/08/20 07/25/20 tablet,delayed release doxepin 50 mg capsule 50 mg PO BEDTIME 04/08/20 07/25/20 fluticasone propionate 110 2 puff INHALATION BID 04/08/20 07/25/20 mcg/actuation HFA aerosol inhaler (Flovent HFA) gabapentin 300 mg capsule 300 mg PO DAILY@0730 04/08/20 07/25/20 gabapentin 300 mg capsule 600 mg PO BEDTIME 04/08/20 07/25/20 levorphanol tartrate 2 mg tablet 2 mg PO BID 04/08/20 07/25/20 oxycodone-acetaminophen 10 mg-325 1 tab PO Q6H PRN 04/08/20 07/25/20 mg tablet tizanidine 2 mg tablet 2 mg PO BID PRN 04/08/20 07/25/20 acetazolamide 500 mg mg PO 05/18/20 07/25/20 capsule,extended release Previous Rx's Medication Instructions Recorded ipratropium 0.5 mg-albuterol 3 mg 3 ml INHALATION RQ4H PRN #180 ml 04/11/20 (2.5 mg base)/3 mL nebulization soln levofloxacin 750 mg tablet 750 mg PO Q24H #7 tab 04/11/20 prednisone 10 mg tablet 40 mg PO DAILY #50 tab 04/11/20 cephalexin 500 mg capsule 500 mg PO QID 7 Days #28 cap 02/28/21 phenazopyridine 100 mg tablet 100 mg PO TID PRN #6 tab 02/28/21 (Pyridium) allopurinol 300 mg tablet 300 mg PO DAILY 30 Days #30 tab 06/08/21 carisoprodol 350 mg tablet (Soma) 350 mg PO QID PRN #30 tab 07/22/21 dexamethasone 6 mg tablet 6 mg PO DAILY #7 tab 07/22/21 (Decadron) diazepam 5 mg tablet (Valium) 5 mg PO BEDTIME PRN #10 tab 07/22/21 diclofenac epolamine 1.3 % 1 patch TOPICAL BID #30 ea 07/22/21 transdermal 12 hour patch lidocaine 4 % topical patch 1 patch TOPICAL DAILY PRN #30 ea 07/22/21 (Salonpas (lidocaine)) <PO Angela - Last Filed: 07/22/21 18:41> Allergies/Adverse reactions: Allergies Allergy/AdvReac Type Severity Reaction Status Date / Time Sulfa (Sulfonamide Allergy Unknown rash, Verified 02/28/21 20:42 Antibiotics) itching sulfamethoxazole Allergy Unknown RASH Verified 02/28/21 20:42 [From BACTRIM] trimethoprim [From BACTRIM] Allergy Unknown RASH Verified 02/28/21 20:42 <PO Angela Last Filed: 07/22/21 18:41> Review of Systems Review of Systems: Constitutional : No trauma, No Weight loss, No Fever, No Chills, ENT/Mouth : No Hearing loss, No Ear Pain, No Nasal Congestion, No Sinus Pain, No Hoarseness, No sore throat, No Rhinorrhea, No Swallowing Difficulty Cardiovascular : No Chest Pain, No SOB Respiratory : No Cough, No Dyspnea Gastrointestinal : No Nausea, No Vomiting, No Diarrhea, No abdominal Pain, No Hematochezia, No Melena Genitourinary : No Dysuria, No Urinary Frequency, No Hematuria, No Urinary or Bowel Incontinence/retention Musculoskeletal : + Back pain and Right Hip pain, No neck pain, No joint stiffness, No joint swelling Skin : No Skin Lesions, No rash or signs of infection Neuro : + Numbness sensation to Right lower leg, No Weakness, No radiation, No headache, no loss of bowel or bladder incontinence, no saddle anesthesia, Focal weakness Denies history of IV drug usage. <PO Angela - Last Filed: 07/22/21 18:41> Yes all other systems are reviewed and are negative <PO Angela - Last Filed: 07/22/21 18:41> [facility] Past Medical History Attestation statement: The following information was validated with the patient. <PO Angela - Last Filed: 07/22/21 18:41> Medical History: Medical History Arthritis Asthma Bronchitis Chronic pain Depression Fibromyalgia Fractured spine Gouty arthritis of both knees Lumbar spondylosis Neuralgia Osteoarthritis of both knees Papilledema Pneumonitis Seizure disorder Sleep apnea <PO Angela - Last Filed: 07/22/21 18:41> Surgical History: Surgical History History of fusion of cervical spine History of hip surgery History of hysterectomy History of lumbar fusion History of sleeve gastrectomy Hx laparoscopic cholecystectomy Hx of breast reduction, elective Hx of section Hx of laparoscopic gastric banding <PO Angela - Last Filed: 07/22/21 18:41> Family History Family History: Family History Mother No problems noted. Father No problems noted. Brother No problems noted. Son No problems noted. Daughter Hypertension Migraine Obese abdomen Ingrown hair Pre-diabetes Depressed Anxiety Sleep apnea <PO Angela - Last Filed: 07/22/21 18:41> Social History Social History: Social History Household Members: Family Housing: Apartment Do you presently have visiting nurse or other home services: No Alcohol intake: never Advance Directives: No Advance Directives Information Provided: No Patient : No service: No Current occupational status: disabled <PO Angela - Last Filed: 07/22/21 18:41> Physical Exam Vital Signs: Vital Signs: Last Vital Signs Temp 97.9 F 07/22/21 17:12 Pulse 120 H 07/22/21 17:12 Resp 18 07/22/21 17:12 BP 141/85 H 07/22/21 17:12 Pulse Ox 99 07/22/21 17:12 BMI result Body Mass Index 43.9 vital signs have been reviewed as normal and appeared to be correct. Blood pressure 141/85. Heart rate 120. Respiration rate normal. Temperature normal. Oxygen saturation normal. <PO Angela - Last Filed: 07/22/21 18:41> Appearance: Alert. Oriented X3. No acute distress. Head: Normal external exam. Normocephalic. Atraumatic. Eyes: PERRLA. EOMI. Conjunctiva and sclera normal. Eyelids normal. ENT: Pharynx normal. Uvula midline. Moist mucous membranes. No trismus noted. No drooling noted. No muffled voice noted. Neck: Normal inspection. Neck supple. FROM. No adenopathy. Thyroid Normal. No meningeal signs. No neck mass noted. CVS: Normal heart rate and rhythm. Heart sound normal. No murmurs noted. Pulses normal throughout. Respiratory: No respiratory distress. Painless inspiration. Breath sounds normal. No wheezes/rales/rhonchi noted. Chest nontender. No accessory muscle usage noted or decreased air movement noted. Abdomen: Soft and nontender. Bowel sounds normal in all 4 quadrants. No distention noted. No organomegaly noted. No visible injury noted. Back: No CVA tenderness. Full range of motion noted. No obvious deformities, or edema. Mild para-spinal muscular tenderness from lumbar region to coccyx. Full ROM in back and lower extremities. 5/5 strength hip extension/flexion, abduction, adduction. Mild Lumbar pain with hip flexion against resistance. Straight leg raise test negative on right; Straight leg raise test negative on left; Reflexes normal ankle and knee bilaterally; EHL motor strength normal bila terally. No rashes/lesion/induration/fluctuance or signs infection noted. Rectal: Normal Rectal sensation. Normal rectal sphincter tone. No abnormalities noted. Skin: Skin warm and dry. Normal skin color. Normal skin turgor. No rashes/lesions/lacerations noted. Extremities: Patient does have tenderness palpation to the right lateral aspect of the hip no obvious deformities and patient has full range of motion no obvious ligamentous or tendon injury. No rashes noted. No signs of infection noted. Otherwise all other extremities exhibit normal range of motion and nontender. No lower extremity edema. No calf tenderness is noted. Neuro: Oriented X 3. No motor deficit. No sensory deficit. Reflexes normal. She has to walk with a walker and is having some difficulty with ambulation and severe pain. <PO Angela - Last Filed: 07/22/21 18:41> Course Course Course Narrative: 18:20pm - Pt c likely muscular pain, but could be herniated disc. Neuro exam shows no deficits. Not c/w AAA/epidural abscess/dissection.No high risk Hx (Incont, fever, immunosupp, recent surgery/LP, coag, signif trauma, wt loss, puls mass, hx/o Ca, TB, or IVDU) to warrant MRI today. Not c/w Pyelo/UTI/kidney stone/spinal fx. Not cauda equina syndrome. X-ray of right hip obtained and negative for any acute processes only revealed chronic changes and normal postoperative appearance is noted. Although patient reports she has never had this pain in the past and now she has numbness down her right leg although on my exam she has full sensation and motor no weakness therefore at this time will obtain a CT scan of lumbar spine and a CT scan of right hip along with a UA and a UHCG provide 100 mg of Motrin and 5 mg of oxycodone then re-evaluate. <PO Angela - Last Filed: 07/22/21 18:41> Reevaluation(s) Reevaluation #1: - Dr. Bañuelos will reexamine the patient he does not believe she needs any further imaging. Sign out to Dr. Bañuelos <PO Angela - Last Filed: 07/22/21 18:41> Time: 18:41 <PO Angela - Last Filed: 07/22/21 18:41> MDM - Extremity (Nontraumatic) Medical Records Attestation: I reviewed the patient's medical records. <PO Angela - Last Filed: 07/22/21 18:41> Lab Data Labs: Lab Results 07/22/21 07/22/21 Range/Units 18:51 18:51 Urine Color DK YELLOW Urine Appearance CLEAR Urine pH 6.5 (5.0-8.0) Ur Specific [place] 1.020 (1.005-1.025) Urine Protein NEG (NEG-TRACE) MG/DL Urine Glucose (UA) NEG (NEG) MG/DL Urine Ketones NEG (NEG) MG/DL Urine Blood NEG (NEG) Urine Nitrite NEG (NEG) Ur Leukocyte Esterase NEG (NEG) Urine Test NEGATIVE (NEGATIVE) <PO Angela Last Filed: 07/22/21 18:41> Imaging Data Right hip x-ray: Attestation: I personally reviewed and interpreted this imaging study as follows: <PO Angela - Last Filed: 07/22/21 18:41> Radiologist's impression: FINDINGS: Lumbar fixation hardware is present at L4-L5. 2 screws are present in the intertrochanteric region of the right hip. Appearances are unchanged when compared to the prior CT. No acute fracture or bony destructive lesions seen.? XR/XR hip RT min 2V IMPRESSION: Normal postoperative appearances as described above. 2 screws are noted in the intertrochanteric region of the right. No acute osseous finding. <PO Angela Last Filed: 07/22/21 18:41> Discharge Plan Discharge Clinical Impression: Chronic back pain <PO Angela Last Filed: 07/22/21 18:41> Patient Disposition: Home, Self-Care <PO Angela Last Filed: 07/22/21 18:41> Instructions: Chronic Back Pain (DC) <PO Angela Last Filed: 07/22/21 18:41> Additional Instructions: Take pain medication as prescribed and follow-up with your surgeon for further management Applied lidoderm patch daily at the lower back <PO Angela Last Filed: 07/22/21 18:41> Prescriptions: New carisoprodol [Soma] 350 mg tablet 350 mg PO QID PRN (Reason: muscle pain) Qty: 30 0RF dexamethasone [Decadron] 6 mg tablet 6 mg PO DAILY Qty: 7 0RF diazepam [Valium] 5 mg tablet 5 mg PO BEDTIME PRN (Reason: muscle spasm) Qty: 10 0RF lidocaine [Salonpas (lidocaine)] 4 % adhesive patch,medicated 1 patch topical DAILY PRN (Reason: pain) Qty: 30 0RF Rx Instructions: may leave on for up to 12 hrs diclofenac epolamine 1.3 % patch 12 hour 1 patch topical BID Qty: 30 0RF No Action allopurinol 300 mg tablet 300 mg PO DAILY 30 Days Qty: 30 7RF doxepin 50 mg capsule 50 mg PO BEDTIME 0RF tizanidine 2 mg tablet 2 mg PO BID PRN (Reason: Pain) 0RF levorphanol tartrate 2 mg tablet 2 mg PO BID 0RF oxycodone-acetaminophen 10-325 mg tablet 1 tab PO Q6H PRN (Reason: severe pain) 0RF gabapentin 300 mg capsule 600 mg PO BEDTIME 0RF gabapentin 300 mg capsule 300 mg PO DAILY@0730 0RF diclofenac sodium 50 mg tablet,delayed release (DR/EC) 50 mg PO BID PRN (Reason: pain) 0RF Flovent HFA 110 mcg/actuation HFA aerosol inhaler 2 puff inhalation BID 0RF levofloxacin 750 mg Tablet 750 mg PO Q24H Qty: 7 0RF prednisone 10 mg tablet 40 mg PO DAILY Qty: 50 0RF Rx Instructions: 40mg daily for 5 days, then 30mg daily for 5 days, then 20mg daily for 5 days, then 10mg daily for 5 days ipratropium-albuterol 0.5 mg-3 mg(2.5 mg base)/3 mL Solution For Nebulization 3 ml inhalation RQ4H PRN (Reason: Shortness Of Breath/Wheezing) Qty: 180 0RF cephalexin 500 mg capsule 500 mg PO QID 7 Days Qty: 28 0RF phenazopyridine [Pyridium] 100 mg tablet 100 mg PO TID PRN (Reason: pain) Qty: 6 0RF acetazolamide 500 mg capsule, extended release PO 0RF <PO Angela - Last Filed: 07/22/21 18:41>
[2021-07-22 18:58] LABS: Appearance Urine CLEAR; Color Urine DK YELLOW; Glucose Urine UA NEG (NEG); Leukocyte Esterase Urine NEG (NEG); Nitrite Urine NEG (NEG); PH 6.5 (5.0-8.0); Urine Blood NEG (NEG); Urine Ketones NEG (NEG); Urine Protein NEG (NEG-TRACE)
[2021-07-22 19:01] LABS: UPreg QC Valid YES; Urine Pregnancy NEGATIVE (NEGATIVE)
[2021-07-22 19:20] VITALS: RESP 17
[2021-07-22] MEDS: Morphine Sulfate 10 MG/ML CARTRIDGE IM (19:20)
[2021-07-22 19:21] VITALS: BP 122/72; PULSE 89; RESP 17; O2SAT 98
[2021-07-22] MEDS: Lidocaine 4 % Patch ADH..PATCH 1 PATCH TRANSDERMA (19:21)
[2021-07-22] MEDS: dexAMETHasone 2 MG TABLET 10 MG PO (19:21)
== END 2021-07-22 20:00 | disposition home or self-care (01) ==
PROVIDERS: Physician Assistant Medical; Emergency Provider Internal Medicine; PCP Internal Medicine
DX: M25.551 Pain in right hip (principal); M54.50 Low back pain, unspecified; R20.0 Anesthesia of skin; M79.10 Myalgia, unspecified site; Z79.899 Other long term (current) drug therapy
CPT/HCPCS: 73502; 81003; 81025; 96372; 99284; J2270; J8540

== ENCOUNTER 2021-08-22 15:24 | Emergency (ER) | payer OTHER, SELFPAY ==
[2021-08-22 16:01] VITALS: BP 109/72; PULSE 108; RESP 19; TEMP 36.4; O2SAT 98; BMI 38.0
--- NOTE | 2021-08-22 16:14 | ED_ITS ---
HPI - Back Pain/Injury General Chief Complaint: Back Pain/Injury Stated Complaint: sciatic nerve pain Time Seen by Provider: 08/22/21 16:06 Source: patient and family Mode of arrival: ambulatory Limitations: no limitations History of Present Illness HPI Narrative: 40-year-old female with a past medical history of diabetes, asthma, arthritis, fibromyalgia, obesity, chronic pain, seizure disorder and surgery to the right hip with screws approximately 1 year ago after a hip fracture presenting to the ED with complaints of atraumatic worsening right hip pain with associated lower back pain radiating down her leg with associated numbness.? She reports that this has started over >1 month agoo and she has been trying [id number] medication no symptomatic relief. Seen here 07/22 and prescribed soma # 30, david um #10, decadron x 7 days, lidoderm patches, diclofenac patches. Recommended f/u with her PCP and patient tells me she had a zoom call with her yesterday. Patient tells me they discussed obtaining an MRI but ?if this was ordered. Today woke up with increasing pain and spoke to her PCP again who recommended being seen in the ER. Patient tells me she took an ambulance to [facility] but was placed in the waiting room and so she decided to leave. Patient tells me when she was seen here on the she had some relief in pain after taking the medication in addition to her chronic pain medication which she takes daily. On review of [employer] the patient feels 112 tablets of 10 mg oxycodone monthly and 56 tablets of levorphanol Denies any fevers, chills, dizziness, headaches, neck pain/stiffness, trouble swallowing or breathing, chest pain or shortness of breath, dyspnea exertion, orthopnea, palpitations, nausea/vomiting/diarrhea, abdominal pain, dysuria, hematuria, abnormal vaginal discharge, weakness, urinary or bowel incontinence or retention, saddle anesthesia, recent falls or trauma, rashes or any other symptoms complaints or concerns at this time. Related Data Home Medications Medication Instructions Recorded Confirmed diclofenac sodium 50 mg 50 mg PO BID PRN 04/08/20 07/25/20 tablet,delayed release doxepin 50 mg capsule 50 mg PO BEDTIME 04/08/20 07/25/20 fluticasone propionate 110 2 puff INHALATION BID 04/08/20 07/25/20 mcg/actuation HFA aerosol inhaler (Flovent HFA) gabapentin 300 mg capsule 300 mg PO DAILY@0730 04/08/20 07/25/20 gabapentin 300 mg capsule 600 mg PO BEDTIME 04/08/20 07/25/20 levorphanol tartrate 2 mg tablet 2 mg PO BID 04/08/20 07/25/20 oxycodone-acetaminophen 10 mg-325 1 tab PO Q6H PRN 04/08/20 07/25/20 mg tablet tizanidine 2 mg tablet 2 mg PO BID PRN 04/08/20 07/25/20 acetazolamide 500 mg mg PO 05/18/20 07/25/20 capsule,extended release Previous Rx's Medication Instructions Recorded ipratropium 0.5 mg-albuterol 3 mg 3 ml INHALATION RQ4H PRN #180 ml 04/11/20 (2.5 mg base)/3 mL nebulization soln levofloxacin 750 mg tablet 750 mg PO Q24H #7 tab 04/11/20 prednisone 10 mg tablet 40 mg PO DAILY #50 tab 04/11/20 cephalexin 500 mg capsule 500 mg PO QID 7 Days #28 cap 02/28/21 phenazopyridine 100 mg tablet 100 mg PO TID PRN #6 tab 02/28/21 (Pyridium) allopurinol 300 mg tablet 300 mg PO DAILY 30 Days #30 tab 06/08/21 carisoprodol 350 mg tablet (Soma) 350 mg PO QID PRN #30 tab 07/22/21 dexamethasone 6 mg tablet 6 mg PO DAILY #7 tab 07/22/21 (Decadron) diazepam 5 mg tablet (Valium) 5 mg PO BEDTIME PRN #10 tab 07/22/21 diclofenac epolamine 1.3 % 1 patch TOPICAL BID #30 ea 07/22/21 transdermal 12 hour patch lidocaine 4 % topical patch 1 patch TOPICAL DAILY PRN #30 ea 07/22/21 (Salonpas (lidocaine)) cyclobenzaprine 10 mg tablet 10 mg PO TID PRN #10 tab 08/22/21 dexamethasone 6 mg tablet 6 mg PO DAILY #7 tab 08/22/21 (Decadron) naproxen 500 mg tablet 500 mg PO BID PRN #20 tab 08/22/21 ondansetron 4 mg disintegrating 4 mg PO Q6H PRN #10 tab 08/22/21 tablet Allergies Allergy/AdvReac Type Severity Reaction Status Date / Time Sulfa (Sulfonamide Allergy Unknown rash, Verified 02/28/21 20:42 Antibiotics) itching sulfamethoxazole Allergy Unknown RASH Verified 02/28/21 20:42 [From BACTRIM] trimethoprim [From BACTRIM] Allergy Unknown RASH Verified 02/28/21 20:42 Review of Systems Review of Systems: Yes all other systems are reviewed and are negative Constitutional: Constitutional: Reports no additional constitutional complaints, Denies body ache(s), Denies chills, Denies fever(s), Denies headache(s) and Denies weakness Eyes: Eyes: Reports no additional eye complaints and Denies change in vision ENT: Reports system reviewed and no additional complaints, except as documented, Denies dizziness, Denies headache(s), Denies nasal congestion, Denies nasal discharge and Denies neck pain Cardiovascular: Cardiovascular: Reports no additional cardiovascular complaints, Denies chest pain, Denies leg edema and Denies dyspnea Respiratory: Respiratory: Reports no additional respiratory complaints, Denies cough and Denies dyspnea Gastrointestinal: Gastrointestinal: Reports no additional gastrointestinal complaints, Denies abdominal pain, Denies diarrhea, Denies nausea and Denies vomiting Genitourinary: Genitourinary: Reports no additional female genitourinary co mplaints and Denies urinary incontinence Musculoskeletal: Musculoskeletal: Reports no additional musculoskeletal complaints, Reports back pain, Reports arthralgias, Denies joint swelling, Denies neck pain, Reports numbness and Denies tingling Integumentary/Breasts: Skin/Breast: Reports system reviewed and no additional complaints, except as docu and Denies rash Neurologic: Reports system reviewed and no additional complaints, except as documented, Denies Abnormal speech present, Denies dizziness, Denies headache(s), Reports numbness, Denies tingling and Denies weakness [facility] Past Medical History Attestation statement: The following information was validated with the patient. Source: old records reviewed and nursing notes reviewed Medical History Arthritis Asthma Bronchitis Chronic pain Depression Fibromyalgia Fractured spine Gouty arthritis of both knees Lumbar spondylosis Neuralgia Osteoarthritis of both knees Papilledema Pneumonitis Seizure disorder Sleep apnea Surgical History History of fusion of cervical spine History of hip surgery History of hysterectomy History of lumbar fusion History of sleeve gastrectomy Hx laparoscopic cholecystectomy Hx of breast reduction, elective Hx of section Hx of laparoscopic gastric banding Family History Family History Mother No problems noted. Father No problems noted. Brother No problems noted. Son No problems noted. Daughter Hypertension Migraine Obese abdomen Ingrown hair Pre-diabetes Depressed Anxiety Sleep apnea Social History Social History Household Members: Family Housing: Apartment Do you presently have visiting nurse or other home services: No Alcohol intake: never Advance Directives: No Advance Directives Information Provided: No service: No Current occupational status: disabled Physical Exam Vital Signs: Vital Signs: Last Vital Signs Temp 97.6 F 08/22/21 16:01 Pulse 108 H 08/22/21 16:01 Resp 19 08/22/21 16:01 BP 109/72 08/22/21 16:01 Pulse Ox 98 08/22/21 16:01 BMI result Body Mass Index 38.0 vital signs have been reviewed as normal and appeared to be correct.? Blood pressure 141/85.? Heart rate 120.? Respiration rate normal.? Temperature normal.? Oxygen saturation normal. ? Appearance: Alert. Oriented X3. No acute distress. ? Head: Normal external exam. Normocephalic. Atraumatic.? Eyes: PERRLA. EOMI. Conjunctiva and sclera normal. Eyelids normal.? ENT: Pharynx normal. Uvula midline. Moist mucous membranes. ? No trismus noted.? No drooling noted.? No muffled voice noted. Neck: Normal inspection. Neck supple. FROM. No adenopathy. Thyroid Normal. No meningeal signs. No neck mass noted. CVS: Normal heart rate and rhythm. Heart sound normal. No murmurs noted. Pulses normal throughout. Respiratory: No respiratory distress. Painless inspiration. Breath sounds normal. No wheezes/rales/rhonchi noted. Chest nontender. ? No accessory muscle usage noted or decreased air movement noted. Abdomen: Soft and nontender. Bowel sounds normal in all 4 quadrants. No distention noted.? No organomegaly noted.? No visible injury noted. Back:? No CVA tenderness. Full range of motion noted. No obvious deformities, or edema. Mild para-spinal muscular tenderness from lumbar region to coccyx. Full ROM in back and lower extremities. 5/5 strength hip extension/flexion, abduction, adduction. Mild Lumbar pain with hip flexion against resistance. Straight leg raise test negative on right; Straight leg raise test negative on left; Reflexes normal ankle and knee bilaterally; EHL motor strength normal bilaterally.? No rashes/lesion/induration/fluctuance or signs infection noted. Rectal:? Normal Rectal sensation.? Normal rectal sphincter tone.? No abnormalities noted. Skin: Skin warm and dry.? Normal skin color.? Normal skin turgor. No rashes/lesions/lacerations noted. Extremities:? Patient does have tenderness palpation to the right lateral aspect of the hip no obvious deformities and patient has full range of motion no obvious ligamentous or tendon injury.? No rashes noted.? No signs of infection noted. ? Otherwise all other extremities? exhibit normal range of motion and nontender.? No lower extremity edema.? No calf tenderness is noted. Neuro: Oriented X 3.? No motor deficit.? No sensory deficit.? Reflexes normal.? She has to walk with a walker and is having some difficulty with ambulation and severe pain. ? Const: General: cooperative, healthy appearing, comfortable and no acute distress Orientation/consciousness: patient oriented x3 Limitations: no limitations HEENT: Head: Yes normal to inspection Ears: hearing grossly normal bilaterally General nose exam: Normal external nose present Face and sinus: Yes normal facial exam Mouth: Normal oral and palatal mucosa present Throat: Yes posterior oropharynx normal Eyes: General: appearance normal, both eyes and all related structures Pupils: Equal, round and reactive pupils present Neck: Neck: Yes normal visual inspection Chest: Chest palpation & inspection: normal inspection of the chest Resp: Effort & Inspection: normal respiratory effort Auscultation: clear to auscultation bilaterally Cardio: Rate: regular rate Rhythm: regular rhythm Peripheral pulses: Peripheral pulses 2+ throughout GI: Inspection: Yes normal to inspection Palpation (GI): Soft to palpation and nontender Auscultation: normal bowel sounds Back/Spine/Pelvis: Thoracic/Lumbar Spine: thoracic and lumbar spine normal to inspection Skin: General skin exam: no rashes or lesions noted Neuro: General: patient oriented x3, no focal motor deficits and normal sensation to monofilament Cranial nerves: Yes Equal, round and reactive pupils present Cognition (Neuro): normal cognition Speech: No Abnormal speech present Gait exam (Neuro): Normal gait present Motor exam (neuro): 5/5 motor strength present throughout Extrem: General: Yes normal to inspection Course Course Course Narrative: ? ? 18:20pm - Pt c likely muscular pain, but could be herniated disc. Neuro exam shows no deficits. Not c/w AAA/epidural abscess/dissection.No high risk Hx (Incont, fever, immunosupp, recent surgery/LP, coag, signif trauma, wt loss, puls mass, hx/o Ca, TB, or IVDU) to warrant MRI today. Not c/w Pyelo/UTI/kidney stone/spinal fx. Not cauda equina syndrome.? X-ray of right hip obtained 07/22 and negative for any acute processes only revealed chronic changes and normal postoperative appearance is noted.? Patient is quite insistent she needs an MRI but it is not warranted at this time d/t normal neurological exam with no red flag symptoms. -Will provide analgesia and re-assess 1740-Patient ambulatory with walker at baseline. Will discharge home with NSAID, low dose muscle relaxant, steroids. Patient tells me that she had to pay for her Lidoderm patches last time out of pocket so she does not want days. Recommend she follow-up with her PCP and return for any saddle anesthesia, incontinence. Comfortable with plan for discharge home Discharge Plan Discharge Clinical Impression: Chronic back pain, Chronic hip pain Patient Disposition: Home, Self-Care Instructions: Chronic Back Pain (DC), Hip Pain (ED) Additional Instructions: Continue your home medication Follow-up with your doctor to discuss an outpatient MRI Heat or ice Gentle stretching Prescriptions: New dexamethasone [Decadron] 6 mg tablet 6 mg PO DAILY Qty: 7 0RF ondansetron 4 mg tablet,disintegrating 4 mg PO Q6H PRN (Reason: nausea and vomiting) Qty: 10 0RF cyclobenzaprine 10 mg tablet 10 mg PO TID PRN (Reason: muscle spasm) Qty: 10 0RF naproxen 500 mg tablet 500 mg PO BID PRN (Reason: pain) Qty: 20 0RF No Action allopurinol 300 mg tablet 300 mg PO DAILY 30 Days Qty: 30 7RF doxepin 50 mg capsule 50 mg PO BEDTIME 0RF tizanidine 2 mg tablet 2 mg PO BID PRN (Reason: Pain) 0RF levorphanol tartrate 2 mg tablet 2 mg PO BID 0RF oxycodone-acetaminophen 10-325 mg tablet 1 tab PO Q6H PRN (Reason: severe pain) 0RF gabapentin 300 mg capsule 600 mg PO BEDTIME 0RF gabapentin 300 mg capsule 300 mg PO DAILY@0730 0RF diclofenac sodium 50 mg tablet,delayed release (DR/EC) 50 mg PO BID PRN (Reason: pain) 0RF Flovent HFA 110 mcg/actuation HFA aerosol inhaler 2 puff inhalation BID 0RF levofloxacin 750 mg Tablet 750 mg PO Q24H Qty: 7 0RF prednisone 10 mg tablet 40 mg PO DAILY Qty: 50 0RF Rx Instructions: 40mg daily for 5 days, then 30mg daily for 5 days, then 20mg daily for 5 days, then 10mg daily for 5 days ipratropium-albuterol 0.5 mg-3 mg(2.5 mg base)/3 mL Solution For Nebulization 3 ml inhalation RQ4H PRN (Reason: Shortness Of Breath/Wheezing) Qty: 180 0RF cephalexin 500 mg capsule 500 mg PO QID 7 Days Qty: 28 0RF phenazopyridine [Pyridium] 100 mg tablet 100 mg PO TID PRN (Reason: pain) Qty: 6 0RF carisoprodol [Soma] 350 mg tablet 350 mg PO QID PRN (Reason: muscle pain) Qty: 30 0RF dexamethasone [Decadron] 6 mg tablet 6 mg PO DAILY Qty: 7 0RF diazepam [Valium] 5 mg tablet 5 mg PO BEDTIME PRN (Reason: muscle spasm) Qty: 10 0RF lidocaine [Salonpas (lidocaine)] 4 % adhesive patch,medicated 1 patch topical DAILY PRN (Reason: pain) Qty: 30 0RF Rx Instructions: may leave on for up to 12 hrs diclofenac epolamine 1.3 % patch 12 hour 1 patch topical BID Qty: 30 0RF acetazolamide 500 mg capsule, extended release PO 0RF Referrals: Michelle Garza MD [Primary Care Provider] - 5 days
[2021-08-22] MEDS: Ketorolac Tromethamine 60 MG/2 ML VIAL IM (16:42)
== END 2021-08-22 17:46 | disposition home or self-care (01) ==
PROVIDERS: Emergency Provider Internal Medicine; PCP Internal Medicine
DX: M54.50 Low back pain, unspecified (principal); M25.551 Pain in right hip; Z79.899 Other long term (current) drug therapy
CPT/HCPCS: 96372; 99284; J1885

== ENCOUNTER 2021-10-30 12:32 | Outpatient (REF) | payer OTHER, SELFPAY ==
--- NOTE | ~2021-10-30 | XR_ITS ---
EXAMINATION: XR KNEE, RIGHT CLINICAL INFORMATION: Pain. COMPARISON: Radiograph of the right knee dated from 06/15/2020. TECHNIQUE: Three views of the right knee. FINDINGS: No acute fractures or malalignment. Mild joint space narrowing and marginal osteophytes on the medial and patellofemoral compartments. No erosions. No chondrocalcinosis. Unchanged chronic deformity of the proximal fibula, possibly sequela of prior injury. Small joint effusion. XR/XR knee RT 3V IMPRESSION: No acute fractures or malalignment. Mild degenerative osteoarthritis of the medial and patellofemoral compartments. Small joint effusion.
== END 2021-10-30 12:33 | disposition home or self-care (01) ==
LOC: HO.XRAY 12:32
PROVIDERS: PCP Internal Medicine; Visit Provider Nurse Practitioner Women's Health
DX: M25.561 Pain in right knee (principal)
CPT/HCPCS: 73562

== ENCOUNTER 2022-06-12 10:52 | Emergency (ER) | payer OTHER, SELFPAY ==
--- NOTE | ~2022-06-12 | CT_ITS ---
EXAMINATION: CT ABDOMEN AND PELVIS WITHOUT CONTRAST CLINICAL INFORMATION: Left lower quadrant pain, fever and diarrhea COMPARISON: CT abdomen pelvis 02/04/2019 TECHNIQUE: Multidetector volumetric imaging was performed from the superior aspect of the liver through the pubic symphysis. Sagittal and coronal reformatted images were obtained on the technologist's workstation. This CT examination was performed using dose optimization techniques as appropriate, variously including the following: *Automated exposure control *Adjustment of mA and/or kV according to patient size (this includes techniques or standardized protocols for targeted exams where dose is matched to indication/reason for exam; i.e. extremities or head) *Use of iterative reconstruction technique DLP: 1177 mGy-cm FINDINGS: LUNG BASES: The visualized lung bases are unremarkable. LIVER, GALLBLADDER, AND BILIARY TREE: The liver is enlarged measuring 19.7 cm in greatest cephalocaudad dimension and demonstrates decreased attenuation consistent with hepatic steatosis. No focal hepatic lesion or biliary ductal dilatation is present. Status post cholecystectomy. PANCREAS: Unremarkable. SPLEEN: Unremarkable. ADRENAL GLANDS: Unremarkable. KIDNEYS AND URETERS: The kidneys are normal in size, shape, and attenuation. A 2 mm nonobstructing calculus is present in the lower pole the right kidney and 2 adjacent small nonobstructing calculi the largest 3 mm noted in the lower pole of the left kidney. No hydronephrosis, hydroureter, or ureteral calculi seen. No perinephric stranding. BLADDER: Unremarkable. GASTROINTESTINAL TRACT: The small and large bowel are unremarkable. The appendix is unremarkable. ABDOMINAL WALL: No significant hernia is appreciated. LYMPH NODES: No retroperitoneal lymphadenopathy. VASCULAR: Unremarkable. PELVIC VISCERA: Surgically removed OSSEOUS STRUCTURES: Degenerative changes noted at L3-L4. There is posterior fixation with pedicular screws at L4-L5 with an interbody device. 2 screws are present in the right femur extending from the greater to the lesser trochanter. CT/CT abdomen pelvis wo IV con IMPRESSION: 1. A cause for the patient's left lower quadrant pain, fever and diarrhea has not been found. 2. Incidental note made of enlarged fatty liver, cholecystectomy, bilateral nonobstructing renal calculi and degenerative changes in the spine. Fleischner guidelines were followed.
[2022-06-12 11:12] VITALS: BP 149/86; PULSE 113; RESP 18; TEMP 36.4; O2SAT 96; BMI 43.9
--- NOTE | 2022-06-12 11:12 | ED.GENADULT ---
HPI - General Adult General Chief complaint: Abdominal Pain <PO Osborn - Last Filed: 06/12/22 11:16> Stated complaint: sent by doctor. [facility] <PO Osborn - Last Filed: 06/12/22 11:16> Time Seen by Provider: 06/12/22 11:33 <PO Osborn - Last Filed: 06/12/22 11:16> Source: patient <PO Cerna Last Filed: 06/12/22 14:48> Mode of arrival: ambulatory <PO Cerna Last Filed: 06/12/22 14:48> Limitations: no limitations <PO Cerna Last Filed: 06/12/22 14:48> History of Present Illness HPI narrative: Patient is a 42 year old assigned female at with a history of kidney stones presenting to the emergency department today with low abdominal pain, pain with urination, and nausea. Patient states that she has had lower abdominal pain, nausea, and pain with urination for the last day. Patient states that she does have a history of kidney stones but does not follow with a urologist. Patient denies any dizziness, lightheadedness, vomiting, fever, chills, blurry vision, double vision, loss of vision, chest pain, difficulty breathing, shortness of breath, back pain, night sweats, increased urinary frequency, increased urinary urgency, blood in her urine or stool, syncope or a near syncopal episode, recent trauma or falls, bowel incontinence, bladder incontinence, bowel retention, bladder retention, or any other complaints at this time. <PO Cerna - Last Filed: 06/12/22 14:48> Onset (ago): day(s) <PO Cerna Last Filed: 06/12/22 14:48> Location: abdomen <PO Cerna Last Filed: 06/12/22 14:48> Severity: mild <PO Cerna Last Filed: 06/12/22 14:48> Severity scale (1-10): 3 <PO Cerna Last Filed: 06/12/22 14:48> Quality: dull <PO Cerna Last Filed: 06/12/22 14:48> Pain Consistency: intermittent <PO Cerna - Last Filed: 06/12/22 14:48> Relieving factors: none <PO Cerna - Last Filed: 06/12/22 14:48> Exacerbating factors: none <PO Cerna - Last Filed: 06/12/22 14:48> Associated symptoms: nausea/vomiting <PO Cerna Last Filed: 06/12/22 14:48> Treatments prior to arrival: none <PO Cerna Last Filed: 06/12/22 14:48> Related Data Home medications: Home Medications Medication Instructions Recorded Confirmed diclofenac sodium 50 mg 50 mg PO BID PRN pain 04/08/20 07/25/20 tablet,delayed release doxepin 50 mg capsule 50 mg PO BEDTIME insomnia 04/08/20 07/25/20 fluticasone propionate 110 2 puff inhalation BID 04/08/20 07/25/20 mcg/actuation HFA aerosol inhaler (Flovent HFA) gabapentin 300 mg capsule 300 mg PO DAILY@0730 04/08/20 07/25/20 gabapentin 300 mg capsule 600 mg PO BEDTIME 04/08/20 07/25/20 levorphanol tartrate 2 mg tablet 2 mg PO BID severe pain 04/08/20 07/25/20 oxycodone-acetaminophen 10 mg-325 1 tab PO Q6H PRN severe pain 04/08/20 07/25/20 mg tablet tizanidine 2 mg tablet 2 mg PO BID PRN Pain 04/08/20 07/25/20 acetazolamide 500 mg mg PO 05/18/20 07/25/20 capsule,extended release Previous Rx's Medication Instructions Recorded ipratropium 0.5 mg-albuterol 3 mg 3 ml inhalation RQ4H PRN Shortness 04/11/20 (2.5 mg base)/3 mL nebulization Of Breath/Wheezing #180 mL soln levofloxacin 750 mg tablet 750 mg PO Q24H #7 tabs 04/11/20 prednisone 10 mg tablet 40 mg PO DAILY #50 tabs 04/11/20 cephalexin 500 mg capsule 500 mg PO QID 7 days #28 caps 02/28/21 phenazopyridine 100 mg tablet 100 mg PO TID PRN pain 6 doses #6 02/28/21 (Pyridium) tabs allopurinol 300 mg tablet 300 mg PO DAILY 30 days #30 tabs 06/08/21 carisoprodol 350 mg tablet (Soma) 350 mg PO QID PRN muscle pain #30 07/22/21 tabs dexamethasone 6 mg tablet 6 mg PO DAILY #7 tabs 07/22/21 (Decadron) diazepam 5 mg tablet (Valium) 5 mg PO BEDTIME PRN muscle spasm 07/22/21 #10 tabs diclofenac epolamine 1.3 % 1 patch topical BID #30 ea 07/22/21 transdermal 12 hour patch lidocaine 4 % topical patch 1 patch topical DAILY PRN pain #30 07/22/21 (Salonpas (lidocaine)) ea cyclobenzaprine 10 mg tablet 10 mg PO TID PRN muscle spasm #10 08/22/21 tabs dexamethasone 6 mg tablet 6 mg PO DAILY #7 tabs 08/22/21 (Decadron) naproxen 500 mg tablet 500 mg PO BID PRN pain #20 tabs 08/22/21 ondansetron 4 mg disintegrating 4 mg PO Q6H PRN nausea and 08/22/21 tablet vomiting #10 tabs prednisone 20 mg tablet 20 mg PO DAILY 7 days #7 tabs 06/12/22 tamsulosin 0.4 mg capsule 0.4 mg PO DAILY #14 caps 06/12/22 <PO Osborn - Last Filed: 06/12/22 11:16> Allergies/adverse reactions: Allergies Allergy/AdvReac Type Severity Reaction Status Date / Time Sulfa (Sulfonamide Allergy Unknown rash, Verified 06/12/22 11:15 Antibiotics) itching sulfamethoxazole Allergy Unknown RASH Verified 06/12/22 11:15 [From BACTRIM] trimethoprim [From BACTRIM] Allergy Unknown RASH Verified 06/12/22 11:15 <PO Osborn - Last Filed: 06/12/22 11:16> Review of Systems Constitutional: Constitutional: Reports no additional constitutional complaints, Denies chills, Denies fever(s) and Denies night sweats <PO Cerna - Last Filed: 06/12/22 14:48> Eyes: Eyes: Reports no additional eye complaints, Denies blurry vision, Denies change in vision, Denies diplopia, Denies eye discharge, Denies loss of vision and Denies eye pain <PO Cerna - Last Filed: 06/12/22 14:48> ENT: Denies dizziness <PO Cerna Last Filed: 06/12/22 14:48> Cardiovascular: Cardiovascular: Reports no additional cardiovascular complaints, Denies chest pain, Denies lightheadedness, Denies Loss of Consciousness and Denies dyspnea <PO Cerna - Last Filed: 06/12/22 14:48> Respiratory: Respiratory: Reports no additional respiratory complaints and Denies dyspnea <PO Cerna - Last Filed: 06/12/22 14:48> Gastrointestinal: Gastrointestinal: Reports no additional gastrointestinal complaints, Reports abdominal pain, Denies melena, Denies hematochezia, Denies change in bowel habits, Denies change in stool character, Reports nausea and Reports vomiting <PO Cerna - Last Filed: 06/12/22 14:48> Genitourinary: Genitourinary: Denies hematuria, Denies urinary frequency, Reports dysuria, Denies urinary incontinence, Denies urinary hesitancy and Denies urinary urgency <PO Cerna Last Filed: 06/12/22 14:48> Musculoskeletal: Musculoskeletal: Reports no additional musculoskeletal complaints, Denies numbness and Denies tingling <PO Cerna Last Filed: 06/12/22 14:48> Neurologic: Denies dizziness, Denies loss of vision, Denies numbness and Denies tingling <PO Cerna Last Filed: 06/12/22 14:48> Psychiatric: Psychiatric: Reports no additional psychiatric complaints <PO Cerna Last Filed: 06/12/22 14:48> Endocrine: Endocrine: Reports no additional endocrine complaints <PO Cerna Last Filed: 06/12/22 14:48> Hematologic/Lymphatic: Hematologic/Lymphatic: Reports no additional hematologic/lymphatic complaints <PO Cerna - Last Filed: 06/12/22 14:48> Allergic/Immunologic: Allergic/Immunologic: Reports no additional allergic/immunologic complaints <PO Cerna Last Filed: 06/12/22 14:48> PMFSH Past Medical History Attestation statement: The following information was validated with the patient. <PO Cerna - Last Filed: 06/12/22 14:48> Source: old records reviewed and nursing notes reviewed <PO Cerna - Last Filed: 06/12/22 14:48> Medical History: Medical History Arthritis Asthma Bronchitis Chronic pain Depression Fibromyalgia Fractured spine Gouty arthritis of both knees Lumbar spondylosis Neuralgia Osteoarthritis of both knees Papilledema Pneumonitis Seizure disorder Sleep apnea <PO Osborn - Last Filed: 06/12/22 11:16> Surgical History: Surgical History History of fusion of cervical spine History of hip surgery History of hysterectomy History of lumbar fusion History of sleeve gastrectomy Hx laparoscopic cholecystectomy Hx of breast reduction, elective Hx of section Hx of laparoscopic gastric banding <PO Osborn - Last Filed: 06/12/22 11:16> Family History Family History: Family History Mother No problems noted. Father No problems noted. Brother No problems noted. Son No problems noted. Daughter Hypertension Migraine Obese abdomen Ingrown hair Pre-diabetes Depressed Anxiety Sleep apnea <PO Osborn - Last Filed: 06/12/22 11:16> Social History Social History: Social History Household Members: Family Housing: Apartment Do you presently have visiting nurse or other home services: No Alcohol intake: never Advance Directives: No Advance Directives Information Provided: No service: No Current occupational status: disabled <PO Osborn - Last Filed: 06/12/22 11:16> Physical Exam ED Vital Signs: Vital Signs - 24 hr 06/12/22 11:12 06/12/22 11:36 06/12/22 12:43 Temperature 97.5 F 98.7 F 98.2 F Pulse Rate 113 H 100 98 Respiratory Rate 18 24 H 20 Blood Pressure 149/86 H 155/95 H 111/61 Pulse Oximetry 96 97 95 Oxygen Delivery Method Room Air Room Air Room Air BMI result Body Mass Index 43.9 <PO Osborn - Last Filed: 06/12/22 11:16> Vital Signs - 24 hr 06/12/22 11:12 06/12/22 11:36 06/12/22 12:43 Temperature 97.5 F 98.7 F 98.2 F Pulse Rate 113 H 100 98 Respiratory Rate 18 24 H 20 Blood Pressure 149/86 H 155/95 H 111/61 Pulse Oximetry 96 97 95 Oxygen Delivery Method Room Air Room Air Room Air BMI result Body Mass Index 43.9 <PO Cerna - Last Filed: 06/12/22 14:48> Const General: cooperative, no acute distress, alert and awake <PO Cerna - Last Filed: 06/12/22 14:48> Nutritional Appearance: well nourished <PO Cerna - Last Filed: 06/12/22 14:48> Orientation/consciousness: patient oriented x3 <PO Cerna - Last Filed: 06/12/22 14:48> Limitations: no limitations <PO Cerna - Last Filed: 06/12/22 14:48> HENMT Head: Yes normal to inspection and Yes atraumatic <PO Cerna - Last Filed: 06/12/22 14:48> Ears: hearing grossly normal bilaterally and external ears normal <PO Cerna - Last Filed: 06/12/22 14:48> General nose exam: Normal external nose present, no nasal discharge noted and no epistaxis <PO Cerna - Last Filed: 06/12/22 14:48> Face and sinus: Yes normal facial exam, No abrasion and No laceration <PO Cerna - Last Filed: 06/12/22 14:48> Mouth: Normal oral and palatal mucosa present, no drooling and no muffled voice <PO Cerna - Last Filed: 06/12/22 14:48> Eyes General: appearance normal, both eyes and all related structures <PO Cerna - Last Filed: 06/12/22 14:48> Periorbital: periorbital findings normal <PO Cerna - Last Filed: 06/12/22 14:48> Eyelids: Yes eyelids normal <Dinora Jarrell SD - Last Filed: 06/12/22 14:48> Conjunctivae: conjunctivae normal <Dinora Jarrell SD - Last Filed: 06/12/22 14:48> Pupils: Equal, round and reactive pupils present <Dinora Jarrell PA - Last Filed: 06/12/22 14:48> EOM: EOMs intact bilaterally <Dinora Jarrell SD - Last Filed: 06/12/22 14:48> Neck Neck: Yes normal visual inspection, Yes full ROM and Yes no lymphadenopathy <Dinora Jarrell SD - Last Filed: 06/12/22 14:48> Chest Chest palpation & inspection: normal inspection of the chest <Dinora Jarrell SD - Last Filed: 06/12/22 14:48> Resp Effort & Inspection: normal respiratory effort and able to speak in complete sentences <Dinora Jarrell SD - Last Filed: 06/12/22 14:48> Auscultation: clear to auscultation bilaterally <Dinora Jarrell SD - Last Filed: 06/12/22 14:48> Cardio Rate: regular rate <Dinora Jarrell SD - Last Filed: 06/12/22 14:48> Rhythm: regular rhythm <Dinora Jarrell SD - Last Filed: 06/12/22 14:48> GI Inspection: Yes normal to inspection <Dinora Jarrell SD - Last Filed: 06/12/22 14:48> Palpation (GI): Soft to palpation, not firm, nontender, no guarding and not rigid <Dinora Jarrell SD - Last Filed: 06/12/22 14:48> General: Yes no CVA tenderness <Dinora Jarrell SD - Last Filed: 06/12/22 14:48> Back/Spine/Pelvis Back: no CVA tenderness <Dinora Jarrell SD - Last Filed: 06/12/22 14:48> Neuro General: patient oriented x3 and moves all extremities <Dinora Jarrell SD - Last Filed: 06/12/22 14:48> Cranial nerves: Yes Equal, round and reactive pupils present <Dinora Jarrell SD - Last Filed: 06/12/22 14:48> Cognition (Neuro): normal cognition <Dinoar LopezPO cochran - Last Filed: 06/12/22 14:48> Motor exam (neuro): 5/5 motor strength present throughout <Dinora JarrellPO - Last Filed: 06/12/22 14:48> Sensory Exam: Normal double simultaneous stimulation for sensation <Dinora JarrellPO - Last Filed: 06/12/22 14:48> Coordination: [id number] test normal <Dinora LopezPO cochran - Last Filed: 06/12/22 14:48> Extrem General: Yes normal to inspection, Yes full ROM and Yes capillary refill normal <Dinora JarrellPO - Last Filed: 06/12/22 14:48> Psych Appearance: grossly normal <Dinora LopezPO cochran - Last Filed: 06/12/22 14:48> Mental Status: mental status grossly normal <Dinora LopezPO cochran - Last Filed: 06/12/22 14:48> Affect: normal affect <Dinora JarrellPO cochran - Last Filed: 06/12/22 14:48> Attitude: cooperative <Dinora LopezPO cochran - Last Filed: 06/12/22 14:48> Thought process: Normal thought process present <Dinora JarrellPO cochran - Last Filed: 06/12/22 14:48> Thought content: Normal thought content present <Dinora LopezPO cochran - Last Filed: 06/12/22 14:48> Insight: Good insight present (Psych) <Dinora JarrellPO cochran - Last Filed: 06/12/22 14:48> Course Course Course Narrative: RME - 42 yo female with hx seizure d/c, fibromyalgia, asthma, obesity, OA, depression, KJ presenting with 3 days of lower abdominal pain, worse on the left side along with difficulty urinating, nausea, diarrhea, fever 101, chills and lower back pain. UA at PCP office was negative for infection so she was instructed to come to the ER for evaluation. No CVA tenderness on exam but LLQ tenderness presents. Will repeat UA, get labs and CT scan for further evaluation. <PO Osborn - Last Filed: 06/12/22 11:16> Medications Administered Discontinued Medications Generic Name Dose Route Start Last Admin Trade Name Freq PRN Reason Stop Dose Admin Hydromorphone HCl 1 mg 06/12/22 13:59 06/12/22 14:10 Hydromorphone Hcl 1 Mg/Ml Syringe IVPUSH 06/12/22 14:00 1 mg ONCE ONE Administration Protocol Ketorolac Tromethamine 15 mg 06/12/22 11:35 06/12/22 11:50 Ketorolac Tromethamine 15 Mg/Ml Vial IVPUSH 06/12/22 11:36 15 mg ONCE ONE Administration Ondansetron HCl 4 mg 06/12/22 11:35 06/12/22 11:51 Ondansetron Hcl 4 Mg/2 Ml Vial IVPUSH 06/12/22 11:36 4 mg ONCE ONE Administration <PO Osborn - Last Filed: 06/12/22 11:16> Medications Administered Discontinued Medications Generic Name Dose Route Start Last Admin Trade Name Tacosq PRN Reason Stop Dose Admin Hydromorphone HCl 1 mg 06/12/22 13:59 06/12/22 14:10 Hydromorphone Hcl 1 Mg/Ml Syringe IVPUSH 06/12/22 14:00 1 mg ONCE ONE Administration Protocol Ketorolac Tromethamine 15 mg 06/12/22 11:35 06/12/22 11:50 Ketorolac Tromethamine 15 Mg/Ml Vial IVPUSH 06/12/22 11:36 15 mg ONCE ONE Administration Ondansetron HCl 4 mg 06/12/22 11:35 06/12/22 11:51 Ondansetron Hcl 4 Mg/2 Ml Vial IVPUSH 06/12/22 11:36 4 mg ONCE ONE Administration <PO Cerna - Last Filed: 06/12/22 14:48> Medical Decision Making Medical Decision Making MDM Narrative: Patient is a 42 year old assigned female at with a history of kidney stones presenting to the emergency department today with abdominal pain, painful urination, and nausea. Patient's physical exam was unremarkable. Patient's blood work was unremarkable. Patient's urine showed no acute process. Patient's abdominal CT showed bilateral non-obstructing kidney stones but was otherwise unremarkable. I explained my physical exam findings as well as all test results to the patient. I answered all questions asked by the patient. Patient received Toradol, Zofran, and Dilaudid which she stated helped her symptoms significantly. Patient's clinical presentation is most consistent with dysuria, this could be secondary to an already passed stone. I stressed the importance of the patient taking her medication as prescribed. I stressed the importance of the patient following up with her primary care provider and a urologist. I stressed the importance of the patient returning to the emergency department immediately if her symptoms were to worsen or if she were to develop any dizziness, shortness of breath, difficulty breathing, chest pain, blurry vision, loss of vision, nausea, vomiting, abdominal pain, fever, chills, back pain, or any other complaints. Patient verbalized agreement and understanding with this treatment plan and discharge. <PO Cerna - Last Filed: 06/12/22 14:48> Differential Diagnosis Differential Diagnoses: The differential diagnosis associated with the presentation includes <PO Cerna - Last Filed: 06/12/22 14:48> UTI, kidney stone, dysuria <PO Cerna - Last Filed: 06/12/22 14:48> Lab Data MDM Lab Attestation statement: I reviewed the patient's lab results. <PO Cerna - Last Filed: 06/12/22 14:48> Result Diagrams: 06/12/22 11:43 06/12/22 11:43 <PO Osborn - Last Filed: 06/12/22 11:16> Labs: Lab Results 06/12/22 06/12/22 06/12/22 Range/Units 11:43 11:43 12:11 WBC 10.4 (4.8-10.8) X10*3/uL RBC 4.43 (4.20-5.50) X10*6/uL Hgb 12.8 (12.0-16.0) g/dl Hct 39.6 (37.0-47.0) % MCV 89.4 (80.0-98.0) fL MCH 28.9 (27.0-33.0) pg MCHC 32.3 (31.0-35.0) g/dl RDW 14.8 (11.0-16.0) % Plt Count 308 (160-400) X10*3/uL MPV 9.1 L (9.4-12.3) fL Immature Gran % (Auto) 0.6 H (0.0-0.4) % Neut % (Auto) 73.6 H (45-73) % Lymph % (Auto) 15.5 L (20-40) % Borden % (Auto) 8.3 (2-11) % Eos % (Auto) 1.3 (0-4) % Baso % (Auto) 0.7 (0-2) % Lymph # (Auto) 1.6 (1.2-4.9) X10*3/uL Borden # (Auto) 0.9 (0.1-1.2) X10*3/uL Eos # (Auto) 0.1 (0.0-0.4) X10*3/uL Baso # (Auto) 0.1 (0.0-0.2) X10*3/uL Abs Immat Gran (auto) 0.06 H (0.00-0.03) X10*3/uL Absolute Neuts (auto) 7.7 (2.0-8.3) x10*3/uL Absolute Nucleated RBC 0.000 (0.0-0.012) X10*3/uL Nucleated RBC % (auto) 0.0 (0.0-0.2) /100WBC Sodium 138 (135-145) mmol/L Potassium 4.3 (3.3-5.1) mmol/L Chloride 102 (96-108) mmol/L Carbon Dioxide 27 (22-29) mmol/L Anion Gap 13 (12-20) BUN 8 L (9-16) mg/dL Creatinine 0.77 (0.5-1.4) mg/dL Estim Creat Clear Calc 108.3 Estimated GFR > 60 Random Glucose 85 (60-115) mg/dL Calcium 8.9 (8.4-10.2) mg/dL Total Bilirubin 0.2 (0.0-1.0) mg/dL Direct Bilirubin < 0.2 (0.0-0.5) mg/dL AST 24 (5-31) U/L ALT 27 (0-31) U/L Alkaline Phosphatase 82 (39-117) U/L Total Protein 7.1 (6.5-8.0) g/dL Albumin 4.1 (3.5-5.0) g/dL Urine Color Yellow Urine Appearance Hazy Urine pH 6.5 (5.0-9.0) Ur Specific [place] 1.025 (1.005-1.025) Urine Protein Negative (Neg-Trace) mg/dL Urine Glucose (UA) Negative (Negative) mg/dL Urine Ketones Negative (Negative) mg/dL Urine Blood Negative (Negative) Urine Nitrite Negative (Negative) Ur Leukocyte Esterase Negative (Negative) <PO Osborn - Last Filed: 06/12/22 11:16> Lab Results 06/12/22 06/12/22 06/12/22 Range/Units 11:43 11:43 12:11 WBC 10.4 (4.8-10.8) X10*3/uL RBC 4.43 (4.20-5.50) X10*6/uL Hgb 12.8 (12.0-16.0) g/dl Hct 39.6 (37.0-47.0) % MCV 89.4 (80.0-98.0) fL MCH 28.9 (27.0-33.0) pg MCHC 32.3 (31.0-35.0) g/dl RDW 14.8 (11.0-16.0) % Plt Count 308 (160-400) X10*3/uL MPV 9.1 L (9.4-12.3) fL Immature Gran % (Auto) 0.6 H (0.0-0.4) % Neut % (Auto) 73.6 H (45-73) % Lymph % (Auto) 15.5 L (20-40) % Borden % (Auto) 8.3 (2-11) % Eos % (Auto) 1.3 (0-4) % Baso % (Auto) 0.7 (0-2) % Lymph # (Auto) 1.6 (1.2-4.9) X10*3/uL Borden # (Auto) 0.9 (0.1-1.2) X10*3/uL Eos # (Auto) 0.1 (0.0-0.4) X10*3/uL Baso # (Auto) 0.1 (0.0-0.2) X10*3/uL Abs Immat Gran (auto) 0.06 H (0.00-0.03) X10*3/uL Absolute Neuts (auto) 7.7 (2.0-8.3) x10*3/uL Absolute Nucleated RBC 0.000 (0.0-0.012) X10*3/uL Nucleated RBC % (auto) 0.0 (0.0-0.2) /100WBC Sodium 138 (135-145) mmol/L Potassium 4.3 (3.3-5.1) mmol/L Chloride 102 (96-108) mmol/L Carbon Dioxide 27 (22-29) mmol/L Anion Gap 13 (12-20) BUN 8 L (9-16) mg/dL Creatinine 0.77 (0.5-1.4) mg/dL Estim Creat Clear Calc 108.3 Estimated GFR > 60 Random Glucose 85 (60-115) mg/dL Calcium 8.9 (8.4-10.2) mg/dL Total Bilirubin 0.2 (0.0-1.0) mg/dL Direct Bilirubin < 0.2 (0.0-0.5) mg/dL AST 24 (5-31) U/L ALT 27 (0-31) U/L Alkaline Phosphatase 82 (39-117) U/L Total Protein 7.1 (6.5-8.0) g/dL Albumin 4.1 (3.5-5.0) g/dL Urine Color Yellow Urine Appearance Hazy Urine pH 6.5 (5.0-9.0) Ur Specific [place] 1.025 (1.005-1.025) Urine Protein Negative (Neg-Trace) mg/dL Urine Glucose (UA) Negative (Negative) mg/dL Urine Ketones Negative (Negative) mg/dL Urine Blood Negative (Negative) Urine Nitrite Negative (Negative) Ur Leukocyte Esterase Negative (Negative) <PO Cerna - Last Filed: 06/12/22 14:48> Radiology Impression Discussion of test interpretation with radiology: I have reviewed the radiologist's reading. <PO Cerna - Last Filed: 06/12/22 14:48> Radiologist Impression: My interpretation is in agreement with the radiologist's impression of this imaging study. EXAMINATION: CT ABDOMEN AND PELVIS WITHOUT CONTRAST? CLINICAL INFORMATION: Left lower quadrant pain, fever and diarrhea? COMPARISON: CT abdomen pelvis 02/04/2019? TECHNIQUE: Multidetector volumetric imaging was performed from the superior aspect of the liver through the pubic symphysis. Sagittal and coronal reformatted images were obtained on the technologist's workstation.? This CT examination was performed using dose optimization techniques as appropriate, variously including the following: *Automated exposure control *Adjustment of mA and/or kV according to patient size (this includes techniques or standardized protocols for targeted exams where dose is matched to indication/reason for exam; i.e. extremities or head) *Use of iterative reconstruction technique DLP: 1177 mGy-cm FINDINGS: LUNG BASES: The visualized lung bases are unremarkable.? LIVER, GALLBLADDER, AND BILIARY TREE: The liver is enlarged measuring 19.7 cm in greatest cephalocaudad dimension and demonstrates decreased attenuation consistent with hepatic steatosis.? No focal hepatic lesion or biliary ductal dilatation is present. Status post cholecystectomy.? PANCREAS: Unremarkable.? SPLEEN: Unremarkable.? ADRENAL GLANDS: Unremarkable.? KIDNEYS AND URETERS: The kidneys are normal in size, shape, and attenuation. A 2 mm nonobstructing calculus is present in the lower pole the right kidney and 2 adjacent small nonobstructing calculi the largest 3 mm noted in the lower pole of the left kidney. No hydronephrosis, hydroureter, or ureteral calculi seen. No perinephric stranding. ? BLADDER: Unremarkable.? GASTROINTESTINAL TRACT: The small and large bowel are unremarkable. The appendix is unremarkable.? ABDOMINAL WALL: No significant hernia is appreciated.? LYMPH NODES: No retroperitoneal lymphadenopathy. VASCULAR: Unremarkable. PELVIC VISCERA: Surgically removed? OSSEOUS STRUCTURES: Degenerative changes noted at L3-L4. There is posterior fixation with pedicular screws at L4-L5 with an interbody device. 2 screws are present in the right femur extending from the greater to the lesser trochanter. CT/CT abdomen pelvis wo IV con IMPRESSION: 1.? A cause for the patient's left lower quadrant pain, fever and diarrhea has not been found. 2.? Incidental note made of enlarged fatty liver, cholecystectomy, bilateral nonobstructing renal calculi and degenerative changes in the spine. ? Fleischner guidelines were followed. Dictated By: Dru Carlton MD Signed By: Electronically signed by Dru Carlton MD 06/12/22 1359 <PO Cerna - Last Filed: 06/12/22 14:48> Discharge Plan Discharge Clinical Impression: Dysuria <PO Osborn - Last Filed: 06/12/22 11:16> Patient Disposition: Home, Self-Care <PO Osborn - Last Filed: 06/12/22 11:16> Instructions: Dysuria (ED) <PO Osborn - Last Filed: 06/12/22 11:16> Additional Instructions: Follow up with your primary care provider and a urologist. Return to the emergency department immediately if your symptoms worsen or if you develop any dizziness, shortness of breath, difficulty breathing, chest pain, blurry vision, loss of vision, nausea, vomiting, abdominal pain, fever, chills, back pain, or any other complaints. <PO Osborn - Last Filed: 06/12/22 11:16> Prescriptions: New tamsulosin 0.4 mg capsule 0.4 mg PO DAILY Qty: 14 0RF prednisone 20 mg tablet 20 mg PO DAILY 7 Days Qty: 7 0RF No Action allopurinol 300 mg tablet 300 mg PO DAILY 30 Days Qty: 30 7RF doxepin 50 mg capsule 50 mg PO BEDTIME tizanidine 2 mg tablet 2 mg PO BID PRN (Reason: Pain) levorphanol tartrate 2 mg tablet 2 mg PO BID oxycodone-acetaminophen 10-325 mg tablet 1 tab PO Q6H PRN (Reason: severe pain) gabapentin 300 mg capsule 600 mg PO BEDTIME gabapentin 300 mg capsule 300 mg PO DAILY@0730 diclofenac sodium 50 mg tablet,delayed release (DR/EC) 50 mg PO BID PRN (Reason: pain) Flovent HFA 110 mcg/actuation HFA aerosol inhaler 2 puff inhalation BID levofloxacin 750 mg Tablet 750 mg PO Q24H Qty: 7 0RF prednisone 10 mg tablet 40 mg PO DAILY Qty: 50 0RF Rx Instructions: 40mg daily for 5 days, then 30mg daily for 5 days, then 20mg daily for 5 days, then 10mg daily for 5 days ipratropium-albuterol 0.5 mg-3 mg(2.5 mg base)/3 mL Solution For Nebulization 3 ml inhalation RQ4H PRN (Reason: Shortness Of Breath/Wheezing) Qty: 180 0RF cephalexin 500 mg capsule 500 mg PO QID 7 Days Qty: 28 0RF phenazopyridine [Pyridium] 100 mg tablet 100 mg PO TID PRN (Reason: pain) Qty: 6 0RF dexamethasone [Decadron] 6 mg tablet 6 mg PO DAILY Qty: 7 0RF ondansetron 4 mg tablet,disintegrating 4 mg PO Q6H PRN (Reason: nausea and vomiting) Qty: 10 0RF cyclobenzaprine 10 mg tablet 10 mg PO TID PRN (Reason: muscle spasm) Qty: 10 0RF naproxen 500 mg tablet 500 mg PO BID PRN (Reason: pain) Qty: 20 0RF carisoprodol [Soma] 350 mg tablet 350 mg PO QID PRN (Reason: muscle pain) Qty: 30 0RF dexamethasone [Decadron] 6 mg tablet 6 mg PO DAILY Qty: 7 0RF diazepam [Valium] 5 mg tablet 5 mg PO BEDTIME PRN (Reason: muscle spasm) Qty: 10 0RF lidocaine [Salonpas (lidocaine)] 4 % adhesive patch,medicated 1 patch topical DAILY PRN (Reason: pain) Qty: 30 0RF Rx Instructions: may leave on for up to 12 hrs diclofenac epolamine 1.3 % patch 12 hour 1 patch topical BID Qty: 30 0RF acetazolamide 500 mg capsule, extended release PO <PO Osborn - Last Filed: 06/12/22 11:16> Referrals: [facility] [place] [facility] [Provider Group] (Call to establish and follow up with a urologist.) Michelle Garza MD [Primary Care Provider] - <PO Osborn - Last Filed: 06/12/22 11:16> Interventions: ED Discharge Assessment Last Done: 06/12/22 14:39 <PO Osborn - Last Filed: 06/12/22 11:16> Discharge Date/Time: 06/12/22 14:40 <PO Osborn - Last Filed: 06/12/22 11:16> Print Language: Guinean <PO Osborn - Last Filed: 06/12/22 11:16>
--- OUTSIDE RECORDS SUMMARY | 2022-06-12 11:24 | XMS_ITS | Continuity of Care Document ---
:1980 Author Organization [facility] Address Unavailable , Care Team Providers Name Role Phone Michelle Garza MD Primary Care Physician Encounter [facility] [place] R [id number] Date(s): 09/04/21 - 10/04/21 [facility] Attending Physician: Jitendra Collins Admitting Physician: Jitendra Collins Referring Physician: Jitendra Collins Allergies, Adverse Reactions, Alerts Substance Reaction Severity Status Bactrim Shortness of breath Active Swelling Itching Immunizations Given and Recorded Vaccine Date Status Refusal Reason influenza virus vaccine, inactivated 04/01/15 Given influenza virus vaccine, inactivated 06/29/11 Given pneumococcal 23-valent vaccine 06/29/11 Given Medications acetaminophen-oxycodone 325 mg-10 mg oral tablet 2 tablet, By Mouth, Every 6 hours, PRN for pain, 0 Refills, Maintenance, 04/25/20 0:21:00 EST, Tablet, Partial fill upon patient request Start Date: 04/25/20 Status: OrderedacetaZOLAMIDE 250 mg oral tablet 250 mg, 1, tablet, By Mouth, 2 times a day, # 14 tablet, Refills 0, Tot. Refills 0, Maintenance, 04/27/20 9:44:00 EST, Route to Pharmacy Electronically, [facility] #[id number], Partial fill upon patient request, 158, cm, 04/27/20 8:27:00 EST, Hei... Start Date: 04/27/20 Stop Date: 05/04/20 Status: Orderedalbuterol-ipratropium 3 mg-0.5 mg/3 ml inhalation solution 3 mL, Inhalation, 4 times a day, # 30 each, 0 Refills, Maintenance, 04/25/20 0:21:00 EST, Solution, Partial fill upon patient request Start Date: 04/25/20 Status: OrderedCymbalta Capsule = 60 mg, By Mouth, Daily, 0 Refills, Maintenance, 07/29/15 14:28:45 EST Start Date: 07/29/15 Status: Ordereddiclofenac sodium 50 mg oral delayed release tablet 1 tablet = 50 mg, By Mouth, 2 times a day, PRN Pain , Mild, # 60 tablet, 0 Refills, Maintenance, 04/25/20 0:22:00 EST, EC Tablet, Partial fill upon patient request Start Date: 04/25/20 Status: OrderedDilaudid 2 mg oral tablet 1 tablet = 2 mg, By Mouth, Every 4 hours, PRN for pain, # 12 tablet, 0 Refills, Maintenance, Tablet Start Date: 03/26/10 Status: Ordereddoxepin 50 mg oral capsule 1 capsule = 50 mg, By Mouth, Daily at bedtime, 0 Refills, Maintenance, 04/25/20 0:20:00 EST, Capsule, Partial fill upon patient request Start Date: 04/25/20 Status: OrderedFleet Enema 19 gm-7 gm rectal enema 133 mL, Rectally, Once, # 3 units, 0 Refills, Soft Stop Start Date: 03/26/10 Status: OrderedFlovent HFA 110 mcg/inh inhalation aerosol 2 puffs, Inhalation, 2 times a day, # 12 Gm, 0 Refills, Maintenance, 04/25/20 0:21:00 EST, Aerosol, Partial fill upon patient request Start Date: 04/25/20 Status: Orderedgabapentin 300 mg oral capsule 300 mg, 1, capsule, By Mouth, Daily, Refills 0, Maintenance, 04/25/20 0:21:00 EST, Partial fill uponpatient request Start Date: 04/25/20 Status: Orderedgabapentin 600 mg oral tablet = 600 mg, By Mouth, Daily at bedtime, # 30 capsule, 0 Refills, Maintenance, 04/25/20 0:24:00 EST, Tablet, Partial fill upon patient request Start Date: 04/25/20 Status: Orderedlevorphanol 2 mg oral tablet 1 tablet = 2 mg, By Mouth, 2 times a day, PRN as needed for pain, 0 Refills, Maintenance, 04/25/20 0:22:00 EST, Tablet, Partial fill upon patient request Start Date: 04/25/20 Status: OrderedpredniSONE 10 mg oral tablet 1 tablet = 10 mg, By Mouth, Daily, # 10 tablet, 0 Refills, Maintenance, 04/25/20 0:21:00 EST, Tablet, Partial fill upon patient request Start Date: 04/25/20 Stop Date: 04/29/20 Status: Orderedriboflavin 100 mg oral tablet 1 tablet = 100 mg, By Mouth, Daily in AM, # 90 tablet, 0 Refills, Maintenance, 09/18/21 9:43:00 EDT,Tablet, [facility], Partial fill upon patient request if the prescription is for a schedule II opioid drug., 158, cm, 02/22/21 10:10:00 E... Start Date: 09/18/21 Stop Date: 12/17/21 Status: OrderedtiZANidine 2 mg oral tablet 2 mg, 1, tablet, By Mouth, Daily at bedtime, # 180 tablet, Refills 0, Maintenance, 04/25/20 0:22:00 EST, Partial fill upon patient request Start Date: 04/25/20 Status: Ordered Problem List Condition Effective Dates Status Health Status Informant Chronic pelvic pain in Active female(Confirmed) Metrorrhagia(Confirmed) Active Menorrhagia(Confirmed) Active Cervical disc herniation(Confirmed) Active Foraminal stenosis of cervical Active region(Confirmed) Social History Social History Type Response Smoking Status Current every day smoker; To bacco user in household: Yes entered on: 03/14/15 Sex
--- OUTSIDE RECORDS SUMMARY | 2022-06-12 11:24 | XMS_ITS | Continuity of Care Document ---
:1980 Author Organization [facility] Address [address] [facility], 3rd Floor, [address] [place] [address]- Care Team Providers Name Role Phone Michelle Garza MD Primary Care Physician [place] [facility] [place] Date(s): 08/29/20 - 09/28/20 [facility] [address] [facility], 3rd [facility], [address] [place] [id number] Allergies, Adverse Reactions, Alerts Substance Reaction Severity [...] 04/27/20 9:44:00 EST, Route to Pharmacy Electronically, [facility] #[id number], Partial fill upon patient request, 158, cm, [...] upon patient request Start Date: 04/25/20 Status: Ordereddoxepin 50 mg oral capsule 1 capsule = 50 mg, By Mouth, Daily at bedtime, 0 Refills, Maintenance, 04/25/20 0:20:00 EST, Capsule, Partial fill upon patient request Start Date: 04/25/20 Status: OrderedFlovent HFA 110 mcg/inh inhalation aerosol [...] Start Date: 04/25/20 Stop Date: 04/29/20 Status: OrderedtiZANidine 2 mg oral tablet 2 [...]
--- OUTSIDE RECORDS SUMMARY | 2022-06-12 11:24 | XMS_ITS | Continuity of Care Document ---
:1980 Author Organization [facility] Address Unavailable , Care Team Providers Name Role Phone Michelle Garza MD Primary Care Physician [id number] Date(s[facility] 02/28/21 - 06/28/21 [facility] Attending Physician: Dominga Lubin MD Admitting Physician: Dominga Lubin MD Allergies, Adverse Reactions, Alerts Substance Reaction Severity [...] 04/27/20 9:44:00 EST, Route to Pharmacy Electronically, [facility] #[id number], Partial fill upon patient request, 158, cm, [...] mg, By Mouth, Daily in AM, # 30 tablet, 4 Refills, Maintenance, 02/22/21 11:44:00 EDT, Tablet, [facility], Partial fill upon patient request if the prescription is for aschedule II opioid drug., 158, cm, 02/22/21 10:10:00... Start Date: 02/22/21 Stop Date: 07/22/21 Status: OrderedtiZANidine 2 mg oral tablet 2 [...]
--- OUTSIDE RECORDS SUMMARY | 2022-06-12 11:24 | XMS_ITS | Continuity of Care Document ---
:1980 Author Organization [facility] Address [address] [facility], 3rd Floor, [address] [place] [address]- Care Team Providers Name Role Phone Michelle Garza MD Primary Care Physician Encounter [facility] [place] Date(s): 08/30/20 - 11/23/20 [facility] [address] [facility], 3rd Floor, [address] [place] [address] Attending Physician: Lucy Butler Admitting Physician: Lucy Butler Referring Physician: Michelle Garza MD Allergies, Adverse Reactions, Alerts Substance Reaction [...] 04/27/20 9:44:00 EST, Route to Pharmacy Electronically, [facility] #[id number], Partial fill upon patient request, 158, cm, [...]
--- OUTSIDE RECORDS SUMMARY | 2022-06-12 11:24 | XMS_ITS | Continuity of Care Document ---
:1980 Author Organization [facility] Address [address] [place] [address]- Care Team Providers Name Role Phone Michelle Garza MD Primary Care Physician Encounter [facility] [place] Date(s): 03/13/21 - 04/18/[address] [address] Attending Physician: Tino Cooper Admitting Physician: Tino Cooper Referring Physician: Tino Cooper Allergies, Adverse Reactions, Alerts Substance Reaction Severity [...] 04/27/20 9:44:00 EST, Route to Pharmacy Electronically, [facility] #[id number], Partial fill upon patient request, 158, cm, [...]
--- OUTSIDE RECORDS SUMMARY | 2022-06-12 11:24 | XMS_ITS | Continuity of Care Document ---
:1980 Author Organization [address], [address] [address]- Care Team Providers Name Role Phone Greg BARRETO, Michelle Price Primary Care Physician [place] [facility] [place]/22/21 - 10/10/[address], [address] [id number] Attending Physician: Chris BARRETO, Kirill Smith Referring Physician: Michelle Garza MD Allergies, Adverse [...] 04/27/20 9:44:00 EST, Route to Pharmacy Electronically, [facility] #[id number], Partial fill upon patient request, 158, cm, [...]
--- OUTSIDE RECORDS SUMMARY | 2022-06-12 11:25 | XMS_ITS | Continuity of Care Document ---
:1980 Author Organization [facility] Address Unavailable , Care Team Providers Name Role Phone Greg BARRETO, Michelle Price Primary Care Phys[id number] Date(s[facility] 08/30/21 - 10/04/21 [facility] Attending Physician: Rod Morfin NP Admitting Physician: Rod Morfin NP Allergies, Adverse Reactions, Alerts Substance Reaction Severity [...] 04/27/20 9:44:00 EST, Route to Pharmacy Electronically, [facility] #[id number], Partial fill upon patient request, 158, cm, [...]
--- OUTSIDE RECORDS SUMMARY | 2022-06-12 11:25 | XMS_ITS | Continuity of Care Document ---
:1980 Author Organization [facility] Address [address] [place] [address]- Care Team Providers Name Role Phone Michelle Garza MD Primary Care Physician [place] [facility] [place] - 06/13/[address] [address] Attending Physician: Tino Cooper Admitting Physician: [...] 04/27/20 9:44:00 EST, Route to Pharmacy Electronically, [facility] #[id number], Partial fill upon patient request, 158, cm, [...]
--- OUTSIDE RECORDS SUMMARY | 2022-06-12 11:25 | XMS_ITS | Continuity of Care Document ---
:1980 Author Organization [facility] Address [address] [place] [address]- Care Team Providers Name Role Phone Michelle Garza MD Primary Care Physician Encounter [facility] [place] Date(s): 04/06/21 - 05/12/[address] [address] Attending Physician: Tino Cooper Admitting Physician: Tino [...] 04/27/20 9:44:00 EST, Route to Pharmacy Electronically, [facility] #[id number], Partial fill upon patient request, 158, cm, [...]
--- OUTSIDE RECORDS SUMMARY | 2022-06-12 11:25 | XMS_ITS | Continuity of Care Document ---
:1980 Author Organization [facility] Address Unavailable , Care Team Providers Name Role Phone Michelle Garza MD Primary Care Physician [facility] [id number] Date(s): 07/17/21 - 09/29/21 [facility] Attending Physician: Tino Cooper Admitting Physician: Tino Cooper Referring Physician: Michelle Garza MD Allergies, Adverse [...] 04/27/20 9:44:00 EST, Route to Pharmacy Electronically, [facility] #[id number], Partial fill upon patient request, 158, cm, [...]
--- OUTSIDE RECORDS SUMMARY | 2022-06-12 11:25 | XMS_ITS | Continuity of Care Document ---
:1980 Author Organization [facility] Address [address] [place] [address]- Care Team Providers Name Role Phone Greg BARRETO, Michelle Price Primary Care Physician Encounter [facility] [place] Date(s): 01/12/21 - 02/11/[address] [address]- Allergies, Adverse Reactions, Alerts Substance Reaction Severity [...] 04/27/20 9:44:00 EST, Route to Pharmacy Electronically, [facility] #[id number], Partial fill upon patient request, 158, cm, [...]
--- OUTSIDE RECORDS SUMMARY | 2022-06-12 11:25 | XMS_ITS | Continuity of Care Document ---
:1980 Author Organization [facility] Address [address] [place] [address]- Care Team Providers Name Role Phone Greg BARRETO, Michelle Price Primary Care Physician [place] [facility] [place] 11[place]14/20 - 12/14/[address] [address]- Allergies, Adverse Reactions, Alerts Substance Reaction Severity [...] 04/27/20 9:44:00 EST, Route to Pharmacy Electronically, [facility] #[id number], Partial fill upon patient request, 158, cm, [...]
--- OUTSIDE RECORDS SUMMARY | 2022-06-12 11:25 | XMS_ITS | Continuity of Care Document ---
:1980 Author Organization [address], [address] [place] [address]- Care Team Providers Name Role Phone Greg BARRETO, Michelle Price Primary Care Physician [place] [facility] [place] - 09/21/[address], [address] [place], [place] [address] Allergies, Adverse Reactions, Alerts Substance Reaction Severity [...] 04/27/20 9:44:00 EST, Route to Pharmacy Electronically, [facility] #[id number], Partial fill upon patient request, 158, cm, [...]
--- OUTSIDE RECORDS SUMMARY | 2022-06-12 11:25 | XMS_ITS | Continuity of Care Document ---
:1980 Author Organization [facility] Address [address] [place] [address]- Care Team Providers Name Role Phone Michelle Garza MD Primary Care Physician Encounter [facility] [place] Date(s): 08/22/21 - 08/22/[address] [address]- Discharge Disposition: A-D/C Walkout Attending Physician: Not on Staff, Attending MD Admitting Physician: Not on Staff, Admitting MD Referring Physician: Not on Staff, Referring MD Allergies, Adverse Reactions, Alerts Substance Reaction [...] 04/27/20 9:44:00 EST, Route to Pharmacy Electronically, [facility] #[id number], Partial fill upon patient request, 158, cm, [...] Mouth, Daily in AM, # 30 tablet, 0 Refills, Maintenance, 08/15/21 12:24:00 EDT, Tablet, [facility], Partial fill upon patient request if the prescription is for aschedule II opioid drug., 158, cm, 02/22/21 10:10:00... Start Date: 08/15/21 Stop Date: 09/14/21 Status: OrderedtiZANidine 2 mg oral tablet 2 [...]
--- OUTSIDE RECORDS SUMMARY | 2022-06-12 11:25 | XMS_ITS | Continuity of Care Document ---
:1980 Author Organization [facility] Address Unavailable , Care Team Providers Name Role Phone Michelle Garza MD Primary Care Physician Encounter [facility] [place] Date(s): 05/29/21 - 06/28/21 [facility] Attending Physician: Jitendra Collins Admitting [...] 04/27/20 9:44:00 EST, Route to Pharmacy Electronically, [facility] #[id number], Partial fill upon patient request, 158, cm, [...]
--- OUTSIDE RECORDS SUMMARY | 2022-06-12 11:25 | XMS_ITS | Continuity of Care Document ---
:1980 Author Organization [address], [address] [place] [address]- Care Team Providers Name Role Phone Michelle Garza MD Primary Care Physician Encounter [facility] [place] Date(s): 09/10/21 - 10/10/[address], [address] [place], [place] [address] Attending Physician: Jitendra Collins Admitting Physician: AdmtrJitendra Referring Physician: Admtr ArMaki Allergies, Adverse Reactions, Alerts Substance Reaction Severity [...] 04/27/20 9:44:00 EST, Route to Pharmacy Electronically, [facility] #[id number], Partial fill upon patient request, 158, cm, [...]
--- OUTSIDE RECORDS SUMMARY | 2022-06-12 11:25 | XMS_ITS | Continuity of Care Document ---
:1980 Author Organization [facility] Address [address] [place] [address]- Care Team Providers Name Role Phone Michelle Garza MD Primary Care Physician Encounter [facility] [place] [facility]CT R [id number] Date(s): 06/03/19 - 06/13/19 [facility] [address] [address] [facility] Attending Physician: Jitendra Collins Admitting Physician: AdmtrJitendra Referring Physician: Admtr, Ar8 Allergies, Adverse Reactions, Alerts Substance Reaction Severity Status Bactrim Shortness of breath Active Swelling Itching Immunizations Given and Recorded Vaccine Date Status Refusal Reason influenza virus vaccine, inactivated 04/01/15 Given influenza virus vaccine, inactivated 06/29/11 Given pneumococcal 23-valent vaccine 06/29/11 Given Medications acetaminophen-oxyCODONE 325 mg-5 mg oral tablet See Instructions, PRN, 1-2 tab By Mouth Every 6 hours not to exceed 4000 mg acetaminophen per day, #56 tablet, Refills 0, Tot. Refills 0, Maintenance, Pain , Moderate, 11/29/15 10:43:17, Instructions Replace Required Details, Print Requisition, Tablet Start Date: 11/29/15 Status: Orderedchantix 1mg tablet 1 tablet = 1 mg, By Mouth, 2 times a day, # 60 tablet, 0 Refills, Maintenance, 07/18/15 22:34:12, Tablet Start Date: 07/18/15 Status: OrderedCymbalta Capsule 1 tab, By Mouth, Daily, 0 Refills, Maintenance, 07/29/15 14:28:45 Start Date: 07/29/15 Status: OrderedDoxepin Capsule = 25 mg, By Mouth, Daily at bedtime, 0 Refills, Maintenance, 11/18/15 12:21:32 Start Date: 11/18/15 Status: Orderedferrous sulfate 325 mg oral enteric coated tablet 1 tablet = 325 mg, By Mouth, Daily, # 30 tablet, 0 Refills, Maintenance, 09/05/14 8:59:21, EC Tablet Start Date: 09/05/14 Status: Orderedgabapentin 600 mg oral tablet 1 tablet = 600 mg, By Mouth, 3 times a day, # 270 tablet, 0 Refills, Maintenance, 03/28/14 16:00:54,Tablet Start Date: 03/28/14 Status: OrderedMedrol Dosepak 4 mg oral tablet 1 pack/packet, By Mouth, Once, # 21 tablet, 0 Refills, Soft Stop, 12/06/15 13:04:53, Tablet Start Date: 12/06/15 Status: OrderedPepcid AC Maximum Strength 20 mg oral tablet 20 mg, 1, tablet, By Mouth, 2 times a day, # 60 tablet, Refills 0, Tot. Refills 0, Maintenance, 12/07/15 15:11:00, Route to Pharmacy Electronically, [id number], [facility] #[id number] Start Date: 12/07/15 Status: OrderedQvar 80 mcg/inh inhalation aerosol 2 puffs, Inhalation, 3 times a day, PRN Wheezing/Shortness of Breath, 0 Refills, Maintenance, 03/24/15 8:43:24 Start Date: 03/24/15 Status: OrderedSenna 8.6 mg oral tablet 2 tablet = 17.2 mg, By Mouth, Daily at bedtime, PRN for constipation, # 100 tablet, 0 Refills, Maintenance, 03/31/15 12:10:37, Tablet Start Date: 03/31/15 Status: OrderedVitamin B12 100 mcg oral tablet 1 tablet = 100 mcg, By Mouth, Daily, # 30 tablet, 0 Refills, Maintenance, 09/05/14 8:58:44, Tablet Start Date: 09/05/14 Status: OrderedZanaflex 2 mg oral capsule 2 capsule = 4 mg, By Mouth, Every 8 hours, 0 Refills, Maintenance, 11/18/15 12:22:37 Start Date: 11/18/15 Status: OrderedZofran 4 mg oral tablet 1 tablet = 4 mg, By Mouth, 2 times a day, PRN as needed for nausea/vomiting, # 14 tablet, 0 Refills,Maintenance, 08/30/15 10:35:16 Start Date: 08/30/15 Status: Ordered Problem List Condition Effective Dates Status Health Status Informant Chronic pelvic pain in Active female(Confirmed) Metrorrhagia(Confirmed) Active Menorrhagia(Confirmed) Active Cervical disc herniation(Confirmed) Active Foraminal stenosis of cervical Active region(Confirmed) Social History Social History Type Response Smoking Status Current every day smoker; To bacco user in household: Yes entered on: 03/14/15 Sex
--- OUTSIDE RECORDS SUMMARY | 2022-06-12 11:25 | XMS_ITS | Continuity of Care Document ---
:1980 Author Organization [facility] Address [address] [place] [address]- Care Team Providers Name Role Phone Michelle Garza MD Primary Care Physician Encounter [facility] [place] Date(s): 05/18/19 - 06/23/19 [facility] [address] [address] [facility] Attending Physician: Saturnino Saldivar MD Admitting Physician: Saturnino Saldivar MD Referring Physician: Saturnino Saldivar MD Allergies, Adverse Reactions, Alerts Substance Reaction [...] Maintenance, 12/07/15 15:11:00, Route to Pharmacy Electronically, [id number], [facility]acy #[id number] Start Date: 12/07/15 Status: OrderedQvar 80 mcg/inh [...]
--- OUTSIDE RECORDS SUMMARY | 2022-06-12 11:25 | XMS_ITS | Continuity of Care Document ---
:1980 Author Organization [facility] Address Unavailable , Care Team Providers Name Role Phone Michelle Garza MD Primary Care Physician Encounter [facility] [place] Date(s): 09/25/21 - 10/25/21 [facility] Allergies, Adverse Reactions, Alerts Substance Reaction Severity [...] 04/27/20 9:44:00 EST, Route to Pharmacy Electronically, [facility] #[id number], Partial fill upon patient request, 158, cm, [...] Refills, Maintenance, 07/29/15 14:28:45 EST Start Date: 2/27/16 Status: Ordereddiclofenac sodium 50 mg oral delayed [...]
--- OUTSIDE RECORDS SUMMARY | 2022-06-12 11:25 | XMS_ITS ---
:1980 External Reference #:[id number] Author Care Team Providers Name Role Phone REYNA DEL ROSARIO MD Referring Provider [phone] EMMANUELLE RIVERA Primary Care Provider [phone] Allergies Code Code System Name Reaction Severity Status Onset NKDA ? Notes: Seasonal allergies Medications Name Status Start Date Stop Date ? ? Prilosec Active ? Not available daily Vicodin 5 mg-300 mg tablet Active ? Not a vailable Take 1 tablet every 4 hours by oral route. Problems Name Status Onset Date Source ? 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 History Knee Pain Active ? History Disorder of Trunk Active ? History Procedures Date Name Performed by ? ? Breast Surgery Information not avai lable Notes: Reduction ? Cholecystectomy Information not avai lable ? Other Information not avai lable Notes: Sleeve gastrectomy ? Tonsillectomy Information not avai lable ? Tubal Ligation Information not avai lable 11/10/2012 MRI, Lumbar Spine [facility] ([facility]) [address], [place] [address] (Work Place) Results Lab Results None recorded. Past Encounters None recorded. Social History Tobacco Smoking Status Heavy Tobacco Smoker (1/2 pack per da y) Vaccine List None recorded. Plan of Care Reminders Provider Appointments None recorded. ? ? Lab None recorded. ? ? Referral None recorded. ? ? Procedures None recorded. ? ? Surgeries None recorded. ? ? Imaging None recorded. ? ? Vitals 01/05/2013 09:00AM RETURN Blood Pressure 128/76 mm[Hg] 11/23/2012 11:30AM PROCEDURE Blood Pressure 119/74 mm[Hg] 11/10/2012 08:30AM NEW PATIENT VISIT Height Weight BMI Blood Pressure 5 ft 2 in 152 lbs 27.8 kg/m2 130/87 mm[Hg]
[2022-06-12 11:36] VITALS: BP 155/95; PULSE 100; RESP 24; TEMP 37.1; O2SAT 97
[2022-06-12] MEDS: Ketorolac Tromethamine 15 MG/ML VIAL IVPUSH (11:50)
[2022-06-12] MEDS: ondansetron HCL 4 MG/2 ML VIAL IVPUSH (11:51)
[2022-06-12 11:57] LABS: MANUAL DIFF FLAG NO
[2022-06-12 12:00] LABS: Basophils Absolute Auto 0.1 X10*3/uL (0.0-0.2); Basophils Percent Auto 0.7 % (0-2); Eosinophils Absolute Auto 0.1 X10*3/uL (0.0-0.4); Eosinophils Percent Auto 1.3 % (0-4); Hematocrit 39.6 % (37.0-47.0); Hemoglobin 12.8 g/dl (12.0-16.0); Imm Gran Abs Auto 0.06 X10*3/uL (0.00-0.03); Imm Gran Pct Auto 0.6 % (0.0-0.4); Lymphocytes Absolute Auto 1.6 X10*3/uL (1.2-4.9); Lymphocytes Percent Auto 15.5 % (20-40); Mean Corpuscular HGB Conc 32.3 g/dl (31.0-35.0); Mean Corpuscular Hemoglobin 28.9 pg (27.0-33.0); Mean Corpuscular Volume 89.4 fL (80.0-98.0); Mean Platelet Volume 9.1 fL (9.4-12.3); Monocytes Absolute Auto 0.9 X10*3/uL (0.1-1.2); Monocytes Percent Auto 8.3 % (2-11); Neutrophils Absolute Auto 7.7 x10*3/uL (2.0-8.3); Neutrophils Percent Auto 73.6 % (45-73); Platelet Count 308 X10*3/uL (160-400); Red Blood Count 4.43 X10*6/uL (4.20-5.50); Red Cell Distribution Width 14.8 % (11.0-16.0); White Blood Count 10.4 X10*3/uL (4.8-10.8)
[2022-06-12 12:15] LABS: Alanine Aminotransferase 27 U/L (0-31); Albumin Level 4.1 g/dL (3.5-5.0); Alkaline Phosphatase 82 U/L (39-117); Anion Gap 13 (12-20); Aspartate Amino Transferase 24 U/L (5-31); Bilirubin Direct < 0.2 mg/dL (0.0-0.5); Bilirubin Total 0.2 mg/dL (0.0-1.0); Blood Urea Nitrogen 8 mg/dL (9-16); Calcium 8.9 mg/dL (8.4-10.2); Carbon Dioxide 27 mmol/L (22-29); Chloride 102 mmol/L (96-108); Creatinine Clr Calc Pharmacy 108.3; Estimated Glomerular Filt Rate > 60; Glucose Random 85 mg/dL (60-115); Potassium 4.3 mmol/L (3.3-5.1); Sodium 138 mmol/L (135-145); Total Protein 7.1 g/dL (6.5-8.0)
[2022-06-12 12:18] LABS: Appearance Urine Hazy; Color Urine Yellow; Glucose Urine UA Negative (Negative); Leukocyte Esterase Urine Negative (Negative); Nitrite Urine Negative (Negative); PH 6.5 (5.0-9.0); Specific Gravity - Urine 1.025 (1.005-1.025); Urine Blood Negative (Negative); Urine Ketones Negative (Negative); Urine Protein Negative (Neg-Trace)
[2022-06-12 12:43] VITALS: BP 111/61; PULSE 98; RESP 20; TEMP 36.8; O2SAT 95
[2022-06-12] MEDS: HYDROmorphone HCl 1 MG/ML SYRINGE IVPUSH (14:10)
--- NOTE | 2022-06-12 14:39 | PC.NURSE ---
patient bladder scanned for 20 ml prior to DC.
== END 2022-06-12 14:40 | disposition home or self-care (01) ==
PROVIDERS: Physician Assistant; Emergency Provider Student in an Organized Health Care Education/Training Program; PCP Internal Medicine
DX: R30.0 Dysuria (principal); R10.30 Lower abdominal pain, unspecified; Z79.899 Other long term (current) drug therapy
CPT/HCPCS: 36415; 74176; 80048; 80076; 81003; 85025; 96374; 96375; 99284; J1170; J1885; J2405

== ENCOUNTER 2023-07-12 08:06 | Emergency (ER) | payer OTHER, SELFPAY ==
--- NOTE | ~2023-07-12 | CT_ITS ---
EXAMINATION: CT ABDOMEN AND PELVIS WITHOUT CONTRAST CLINICAL INFORMATION: Left flank pain, hematuria COMPARISON: CT abdomen and pelvis 06/12/2022 TECHNIQUE: Multidetector volumetric imaging was performed from the superior aspect of the liver through the pubic symphysis. Sagittal and coronal reformatted images were obtained on the technologist's workstation. This CT examination was performed using dose optimization techniques as appropriate, variously including the following: *Automated exposure control *Adjustment of mA and/or kV according to patient size (this includes techniques or standardized protocols for targeted exams where dose is matched to indication/reason for exam; i.e. extremities or head) *Use of iterative reconstruction technique DLP: 970 mGy-cm FINDINGS: LUNG BASES: The heart size is normal. The lung bases are clear. LIVER, GALLBLADDER, AND BILIARY TREE: The liver is enlarged in size, normal shape, and attenuation. No focal hepatic lesion or biliary ductal dilatation is present. The gallbladder has been surgically removed. PANCREAS: Unremarkable. SPLEEN: Unremarkable. ADRENAL GLANDS: Unremarkable. KIDNEYS AND URETERS: The right kidney is normal size, shape and attenuation. The left kidney is mildly enlarged measuring 11.2 cm with moderate perinephric stranding.. There is a 2 mm and 1 mm nonobstructive radiopaque calculi lower pole right kidney and a 1 mm nonobstructive calculi lower pole left kidney. There is mild left hydroureteronephrosis but no obstructive stone. The ureter may be compressed in the pelvis from the left ovarian cyst. Also may have passed a recent stone. BLADDER: The bladder is nondistended. GASTROINTESTINAL TRACT: There is scattered stool and gas seen right colon without distention. Appendix is normal caliber. The small bowel loops are normal caliber. There is left gastric postsurgical changes. No free air or free fluid seen. ABDOMINAL WALL: No significant hernia is appreciated. LYMPH NODES: Normal. VASCULAR: Unremarkable. PELVIC VISCERA: There is 2.4 cm left ovarian cyst the uterus is not visualized likely surgically removed or atrophied. OSSEOUS STRUCTURES: There is L4-L5 disc prosthesis stabilized with posterior hardware. Mild degenerative disc changes with vacuum disc phenomena and ventral and posterior spondylosis seen at the L3-L4 disc level. CT/CT abdomen pelvis wo IV con IMPRESSION: 1. Mild left hydroureteronephrosis with perinephric stranding but no obstructive radiopaque stone seen. Patient may have passed a recent stone. 2. Bilateral nonobstructive radiopaque renal calculi. 3. Mild hepatomegaly without focal lesion. 4. Mild constipation. Normal appendix. 5. L4-L5 disc prosthesis stabilized with posterior hardware. There is degenerative disc changes with vacuum disc phenomena and ventral and posterior spondylosis at the L3-L4 disc level. 6. Left ovarian/paraovarian cyst is unchanged to previous exam 06/12/2022. Fleischner guidelines were followed.
[2023-07-12 08:13] VITALS: BP 137/78; PULSE 121; RESP 20; TEMP 35.7; O2SAT 96; BMI 44.8
--- NOTE | 2023-07-12 08:28 | ED_ITS ---
HPI - General Adult General Chief complaint: Abdominal Pain Stated complaint: Blood in urine Time Seen by Provider: 07/12/23 08:27 Source: patient Mode of arrival: ambulatory Limitations: no limitations History of Present Illness HPI narrative: Patient is a 43-year-old female with history of asthma, fibromyalgia, seizure disorder presenting to the emergency department with sudden onset left lower/suprapubic abdominal pain since 3am. Pain radiating to left flank. Reports nausea and vomiting. States she got out of bed to use the bathroom and noted hematuria. Reports history of kidney stones in the past and states this pain is similar but stronger. Took percocet at home without relief. Complains of sweating, did not check temperature. Attempted to have bowel movement but was unable due to pain. Denies symptoms yesterday. MD complaint: abdominal/flank pain Onset (ago): hour(s) Location: abdomen Radiation: flank Severity: severe Severity scale (1-10): >10 Quality: sharp Pain Consistency: constant Relieving factors: none Associated symptoms: nausea/vomiting Treatments prior to arrival: other Related Data Home Medications Medication Instructions Recorded Confirmed diclofenac sodium 50 mg 50 mg PO BID PRN pain 04/08/20 07/25/20 tablet,delayed release doxepin 50 mg capsule 50 mg PO BEDTIME insomnia 04/08/20 07/25/20 fluticasone propionate 110 2 puff inhalation BID 04/08/20 07/25/20 mcg/actuation HFA aerosol inhaler (Flovent HFA) gabapentin 300 mg capsule 300 mg PO DAILY@0730 04/08/20 07/25/20 gabapentin 300 mg capsule 600 mg PO BEDTIME 04/08/20 07/25/20 levorphanol tartrate 2 mg tablet 2 mg PO BID severe pain 04/08/20 07/25/20 oxycodone-acetaminophen 10 mg-325 1 tab PO Q6H PRN severe pain 04/08/20 07/25/20 mg tablet tizanidine 2 mg tablet 2 mg PO BID PRN Pain 04/08/20 07/25/20 acetazolamide 500 mg mg PO 05/18/20 07/25/20 capsule,extended release Previous Rx's Medication Instructions Recorded ipratropium 0.5 mg-albuterol 3 mg 3 ml inhalation RQ4H PRN Shortness 04/11/20 (2.5 mg base)/3 mL nebulization Of Breath/Wheezing #180 mL soln levofloxacin 750 mg tablet 750 mg PO Q24H #7 tabs 04/11/20 prednisone 10 mg tablet 40 mg (4 x 10 mg) PO DAILY #50 tabs 04/11/20 cephalexin 500 mg capsule 500 mg PO QID 7 days #28 caps 02/28/21 phenazopyridine 100 mg tablet 100 mg PO TID PRN pain 6 doses #6 02/28/21 (Pyridium) tabs allopurinol 300 mg tablet 300 mg PO DAILY 30 days #30 tabs 06/08/21 carisoprodol 350 mg tablet (Soma) 350 mg PO QID PRN muscle pain #30 07/22/21 tabs dexamethasone 6 mg tablet 6 mg PO DAILY #7 tabs 07/22/21 (Decadron) diazepam 5 mg tablet (Valium) 5 mg PO BEDTIME PRN muscle spasm 07/22/21 #10 tabs diclofenac epolamine 1.3 % 1 patch topical BID #30 ea 07/22/21 transdermal 12 hour patch lidocaine 4 % topical patch 1 patch topical DAILY PRN pain #30 07/22/21 (Salonpas (lidocaine)) ea cyclobenzaprine 10 mg tablet 10 mg PO TID PRN muscle spasm #10 08/22/21 tabs dexamethasone 6 mg tablet 6 mg PO DAILY #7 tabs 08/22/21 (Decadron) naproxen 500 mg tablet 500 mg PO BID PRN pain #20 tabs 08/22/21 ondansetron 4 mg disintegrating 4 mg PO Q6H PRN nausea and 08/22/21 tablet vomiting #10 tabs prednisone 20 mg tablet 20 mg PO DAILY 7 days #7 tabs 06/12/22 tamsulosin 0.4 mg capsule 0.4 mg PO DAILY #14 caps 06/12/22 cefpodoxime 200 mg tablet 200 mg PO BID #20 tabs 07/12/23 ondansetron 4 mg disintegrating 4 mg PO Q8H PRN nausea and 07/12/23 tablet vomiting #8 tabs oxycodone 5 mg tablet 5 mg PO Q8H PRN severe pain (scale 07/12/23 score 7-10) #6 tabs prednisone 20 mg tablet 20 mg PO DAILY #5 tabs 02/10/24 Allergies Allergy/AdvReac Type Severity Reaction Status Date / Time Sulfa (Sulfonamide Allergy Unknown rash, Verified 07/12/23 08:21 Antibiotics) itching sulfamethoxazole Allergy Unknown RASH Verified 07/12/23 08:21 [From BACTRIM] trimethoprim [From BACTRIM] Allergy Unknown RASH Verified 07/12/23 08:21 Review of Systems 2 Review of Systems: As per HPI. Yes all other systems are reviewed and are negative PMFSH Past Medical History Medical History Arthritis Asthma Bronchitis Chronic pain Depression Fibromyalgia Fractured spine Gouty arthritis of both knees Lumbar spondylosis Neuralgia Osteoarthritis of both knees Papilledema Pneumonitis Seizure disorder Sleep apnea Surgical History History of fusion of cervical spine History of hip surgery History of hysterectomy History of lumbar fusion History of sleeve gastrectomy Hx laparoscopic cholecystectomy Hx of breast reduction, elective Hx of section Hx of laparoscopic gastric banding Family History Family History Mother No problems noted. Father No problems noted. Brother No problems noted. Son No problems noted. Daughter Hypertension Migraine Obese abdomen Ingrown hair Pre-diabetes Depressed Anxiety Sleep apnea Social History Social History Household Members: Family Housing: Apartment Do you presently have visiting nurse or other home services: No Alcohol intake: never Comment: REFUSED BED ALARM Use of substances other than those prescribed or required for medical reasons: No Advance Directives: No Patient : No service: No Current occupational status: disabled Physical Exam ED Vital Signs: Vital Signs - 24 hr 07/12/23 08:13 07/12/23 09:29 Temperature 96.2 F L 98.3 F Pulse Rate 121 H 99 Respiratory Rate 20 18 Blood Pressure 137/78 103/65 Pulse Oximetry 96 96 Oxygen Delivery Method Room Air Room Air BMI result Body Mass Index 44.8 Vital signs have been reviewed and appear to be correct. Blood pressure normal. Heart rate tachycardic. Respiratory rate normal. Temperature normal. Oxygen saturation normal. Medications Administered Discontinued Medications Generic Name Dose Route Start Last Admin Trade Name Freq PRN Reason Stop Dose Admin Hydromorphone HCl 1 mg 07/12/23 08:28 07/12/23 09:23 Hydromorphone Hcl 1 Mg/Ml Syringe IVPUSH 07/12/23 08:29 1 mg ONCE ONE Administration Protocol Sodium Chloride 1,000 mls @ 999 mls/hr 07/12/23 08:30 07/12/23 10:26 Ns IV 07/12/23 09:30 Infused .Q1H1M [facility]CA Infusion Ceftriaxone Sodium 1 gm/ 50 mls @ 100 mls/hr 07/12/23 09:25 07/12/23 10:24 Sodium Chloride IV 07/12/23 09:54 Infused ONCE ONE Infusion Ketorolac Tromethamine 15 mg 07/12/23 08:28 07/12/23 09:23 Ketorolac Tromethamine 15 Mg/Ml Vial IVPUSH 07/12/23 08:29 15 mg ONCE ONE Administration Ondansetron HCl 4 mg 07/12/23 08:28 07/12/23 09:23 Ondansetron Hcl 4 Mg/2 Ml Vial IVPUSH 07/12/23 08:29 4 mg ONCE ONE Administration Medical Decision Making Medical Decision Making MDM Narrative: Patient is a 43-year-old female with history of asthma, fibromyalgia, seizure disorder presenting to the emergency department with sudden onset left lower/suprapubic abdominal pain since 3am. On exam patient is awake, A+Ox3, tachycardic likely secondary to pain, VS otherwise WNL, afebrile, normal neurological exam without focal deficits, physical exam findings as above. Given reported symptoms and physical exam findings, initial differential includes renal/ureteral calculi, UTI, pyelonephritis. Labs notable for leukocytosis with left shift, no evidence of CHRISSY, no electrolyte abnormalities. CT notable for mild left hydroureteronephrosis with perinephric stranding but no obstructive stone seen. My interpretation is in agreement with the radiologist's interpretation. Given clinical context, feel patient recently passed a stone. Urinalysis notable for 2+ leukocytes, positive nitrates, 3+ blood, 4+ bacteria. IV ceftriaxone ordered. Patient is tolerating PO and is afebrile, hemodynamically stable. Feel patient is safe for discharge home on PO antibiotics, will also prescribe zofran, and oxycodone for severe pain as well as prednisone. Will refer patient to urology. Return precautions discussed at bedside. Patient verbalized understanding of and agreement with plan. Differential Diagnosis Differential Diagnoses: The differential diagnosis associated with the presentation includes As per [facility] Admission/Observation Consideration of admission/observation: Escalation of care including admission/observation considered Lab Data [facility] Lab Attestation statement: I reviewed the patient's lab results. As per [facility] 07/12/23 08:42 07/12/23 08:42 Labs: Lab Results 07/12/23 07/12/23 Range/Units 08:42 08:43 WBC 19.7 H (4.8-10.8) X10*3/uL RBC 4.33 (4.20-5.50) X10*6/uL Hgb 12.4 (12.0-16.0) g/dl Hct 38.0 (37.0-47.0) % MCV 87.8 (80.0-98.0) fL MCH 28.6 (27.0-33.0) pg MCHC 32.6 (31.0-35.0) g/dl RDW 16.2 H (11.0-16.0) % Plt Count 341 (160-400) X10*3/uL MPV 8.7 L (9.4-12.3) fL Immature Gran % (Auto) 0.4 (0.0-0.4) % Neut % (Auto) 86.2 H (45-73) % Lymph % (Auto) 6.7 L (20-40) % [place] % (Auto) 5.4 (2-11) % Eos % (Auto) 1.0 (0-4) % Baso % (Auto) 0.3 (0-2) % Lymph # (Auto) 1.3 (1.2-4.9) X10*3/uL [place] # (Auto) 1.1 (0.1-1.2) X10*3/uL Eos # (Auto) 0.2 (0.0-0.4) X10*3/uL Baso # (Auto) 0.1 (0.0-0.2) X10*3/uL Abs Immat Gran (auto) 0.08 H (0.00-0.03) X10*3/uL Absolute Neuts (auto) 17.0 H (2.0-8.3) x10*3/uL Absolute Nucleated RBC 0.000 (0.0-0.012) X10*3/uL Nucleated RBC % (auto) 0.0 (0.0-0.2) /100WBC Sodium 140 (135-145) mmol/L Potassium 3.9 (3.3-5.1) mmol/L Chloride 103 (96-108) mmol/L Carbon Dioxide 26 (22-29) mmol/L Anion Gap 15 (12-20) BUN 13 (9-16) mg/dL Creatinine 1.02 (0.5-1.4) mg/dL Estim Creat Clear Calc 81.9 Estimated GFR 59 Random Glucose 126 H (60-115) mg/dL Calcium 8.7 (8.4-10.2) mg/dL Magnesium 1.8 (1.6-2.6) mg/dL Total Bilirubin 0.3 (0.0-1.0) mg/dL Direct Bilirubin 0.2 (0.0-0.5) mg/dL AST 23 (5-31) U/L ALT 17 (0-31) U/L Alkaline Phosphatase 74 (39-117) U/L Total Protein 6.9 (6.5-8.0) g/dL Albumin 3.8 (3.5-5.0) g/dL Urine Color Yellow Urine Appearance Cloudy Urine pH 7.5 (5.0-9.0) Ur Specific [place] 1.015 (1.005-1.025) Urine Protein 100 (2+) H (Neg-Trace) mg/dL Urine Glucose (UA) Negative (Negative) mg/dL Urine Ketones Negative (Negative) mg/dL Urine Blood Large (3+) H (Negative) Urine Nitrite Positive H (Negative) Ur Leukocyte Esterase Moderate (2+) H (Negative) Urine RBC >20 H (0-2) /HPF Urine WBC >50 H (0-5) /HPF Ur Squamous Epith Cells 6-10 (0-2) /HPF Urine Bacteria 4+ (None Seen) Hyaline Casts 6-10 (0-2) /LPF Urine Test NEGATIVE (NEGATIVE) Independent Interpretation I performed an independent interpretation of an: CT Scan Interpretation: CT notable for mild left hydroureteronephrosis with perinephric stranding but no obstructive stone seen. Radiology Impression Discussion of test interpretation with radiology: I have reviewed the radiologist's reading. Radiologist Impression: CT/CT abdomen pelvis wo IV con IMPRESSION: 1. Mild left hydroureteronephrosis with perinephric stranding but no obstructive radiopaque stone seen. Patient may have passed a recent stone. 2. Bilateral nonobstructive radiopaque renal calculi. 3. Mild hepatomegaly without focal lesion. 4. Mild constipation. Normal appendix. 5. L4-L5 disc prosthesis stabilized with posterior hardware. There is degenerative disc changes with vacuum disc phenomena and ventral and posterior spondylosis at the L3-L4 disc level. 6. Left ovarian/paraovarian cyst is unchanged to previous exam 06/12/2022. External Record Review External record reviewed: Inpatient record, Office record and Outpatient record Discharge Plan Discharge Clinical Impression: Pyelonephritis, Renal colic on left side Patient Disposition: Home, Self-Care Instructions: Renal Colic (ED), Kidney Infection (ED) Additional Instructions: You were evaluated in the emergency department for flank pain. Your CT scan showed evidence that you may have recently passed a kidney stone. Your urine also shows evidence of infection and you are being treated with antibiotics. Please complete the full course as prescribed. You can take 600 mg of ibuprofen every 6 hours as needed for pain. You are being prescribed prednisone to decrease inflammation, oxycodone as needed for severe pain, and ondansetron for nausea. Please take these medications as prescribed. You are being referred to Urology, please call them on Friday morning for an appointment. Return to the emergency department if you develop worsening pain, persistent vomiting, fever 100.4? or greater, inability to urinate, or any other concerning symptoms. Prescriptions: New cefpodoxime 200 mg tablet 200 mg PO BID Qty: 20 0RF Rx Instructions: must administer with a meal/food prednisone 20 mg tablet 20 mg PO DAILY Qty: 5 0RF ondansetron 4 mg tablet,disintegrating 4 mg PO Q8H PRN (Reason: nausea and vomiting) Qty: 8 0RF oxycodone 5 mg tablet 5 mg PO Q8H PRN (Reason: severe pain (scale score 7-10)) Qty: 6 0RF Rx Instructions: Partial Fill upon patient request. No Action allopurinol 300 mg tablet 300 mg PO DAILY 30 Days Qty: 30 7RF doxepin 50 mg capsule 50 mg PO BEDTIME tizanidine 2 mg tablet 2 mg PO BID PRN (Reason: Pain) levorphanol tartrate 2 mg tablet 2 mg PO BID oxycodone-acetaminophen 10-325 mg tablet 1 tab PO Q6H PRN (Reason: severe pain) gabapentin 300 mg capsule 600 mg PO BEDTIME gabapentin 300 mg capsule 300 mg PO DAILY@0730 diclofenac sodium 50 mg tablet,delayed release (DR/EC) 50 mg PO BID PRN (Reason: pain) Flovent HFA 110 mcg/actuation HFA aerosol inhaler 2 puff inhalation BID levofloxacin 750 mg Tablet 750 mg PO Q24H Qty: 7 0RF prednisone 10 mg tablet 40 mg PO DAILY Qty: 50 0RF Rx Instructions: 40mg daily for 5 days, then 30mg daily for 5 days, then 20mg daily for 5 days, then 10mg daily for 5 days ipratropium-albuterol 0.5 mg-3 mg(2.5 mg base)/3 mL Solution For Nebulization 3 ml inhalation RQ4H PRN (Reason: Shortness Of Breath/Wheezing) Qty: 180 0RF cephalexin 500 mg capsule 500 mg PO QID 7 Days Qty: 28 0RF phenazopyridine [Pyridium] 100 mg tablet 100 mg PO TID PRN (Reason: pain) Qty: 6 0RF dexamethasone [Decadron] 6 mg tablet 6 mg PO DAILY Qty: 7 0RF ondansetron 4 mg tablet,disintegrating 4 mg PO Q6H PRN (Reason: nausea and vomiting) Qty: 10 0RF cyclobenzaprine 10 mg tablet 10 mg PO TID PRN (Reason: muscle spasm) Qty: 10 0RF naproxen 500 mg tablet 500 mg PO BID PRN (Reason: pain) Qty: 20 0RF carisoprodol [Soma] 350 mg tablet 350 mg PO QID PRN (Reason: muscle pain) Qty: 30 0RF dexamethasone [Decadron] 6 mg tablet 6 mg PO DAILY Qty: 7 0RF diazepam [Valium] 5 mg tablet 5 mg PO BEDTIME PRN (Reason: muscle spasm) Qty: 10 0RF lidocaine [Salonpas (lidocaine)] 4 % adhesive patch,medicated 1 patch topical DAILY PRN (Reason: pain) Qty: 30 0RF Rx Instructions: may leave on for up to 12 hrs diclofenac epolamine 1.3 % patch 12 hour 1 patch topical BID Qty: 30 0RF tamsulosin 0.4 mg capsule 0.4 mg PO DAILY Qty: 14 0RF prednisone 20 mg tablet 20 mg PO DAILY 7 Days Qty: 7 0RF acetazolamide 500 mg capsule, extended release PO Referrals: [facility] [Provider Group]
[2023-07-12 08:47] LABS: MANUAL DIFF FLAG NO
[2023-07-12 08:49] LABS: Basophils Absolute Auto 0.1 X10*3/uL (0.0-0.2); Basophils Percent Auto 0.3 % (0-2); Eosinophils Absolute Auto 0.2 X10*3/uL (0.0-0.4); Hemoglobin 12.4 g/dl (12.0-16.0); Imm Gran Abs Auto 0.08 X10*3/uL (0.00-0.03); Imm Gran Pct Auto 0.4 % (0.0-0.4); Lymphocytes Absolute Auto 1.3 X10*3/uL (1.2-4.9); Lymphocytes Percent Auto 6.7 % (20-40); Mean Corpuscular HGB Conc 32.6 g/dl (31.0-35.0); Mean Corpuscular Hemoglobin 28.6 pg (27.0-33.0); Mean Corpuscular Volume 87.8 fL (80.0-98.0); Mean Platelet Volume 8.7 fL (9.4-12.3); Monocytes Absolute Auto 1.1 X10*3/uL (0.1-1.2); Monocytes Percent Auto 5.4 % (2-11); Neutrophils Percent Auto 86.2 % (45-73); Platelet Count 341 X10*3/uL (160-400); Red Blood Count 4.33 X10*6/uL (4.20-5.50); Red Cell Distribution Width 16.2 % (11.0-16.0); White Blood Count 19.7 X10*3/uL (4.8-10.8)
[2023-07-12 08:52] LABS: Appearance Urine Cloudy; Color Urine Yellow; Glucose Urine UA Negative (Negative); Leukocyte Esterase Urine Moderate (2+) (Negative); Nitrite Urine Positive (Negative); PH 7.5 (5.0-9.0); Specific Gravity - Urine 1.015 (1.005-1.025); UMIC TRIGGER UACC YES; Urine Blood Large (3+) (Negative); Urine Ketones Negative (Negative); Urine Protein 100 (2+) mg/dL (Neg-Trace)
[2023-07-12 08:56] LABS: UPreg QC Valid YES; Urine Pregnancy NEGATIVE (NEGATIVE)
[2023-07-12 09:02] LABS: Alanine Aminotransferase 17 U/L (0-31); Albumin Level 3.8 g/dL (3.5-5.0); Alkaline Phosphatase 74 U/L (39-117); Anion Gap 15 (12-20); Aspartate Amino Transferase 23 U/L (5-31); Bilirubin Direct 0.2 mg/dL (0.0-0.5); Bilirubin Total 0.3 mg/dL (0.0-1.0); Blood Urea Nitrogen 13 mg/dL (9-16); Calcium 8.7 mg/dL (8.4-10.2); Carbon Dioxide 26 mmol/L (22-29); Chloride 103 mmol/L (96-108); Creatinine Clr Calc Pharmacy 81.9; Estimated Glomerular Filt Rate 59; Glucose Random 126 mg/dL (60-115); Magnesium 1.8 mg/dL (1.6-2.6); Potassium 3.9 mmol/L (3.3-5.1); Sodium 140 mmol/L (135-145); Total Protein 6.9 g/dL (6.5-8.0)
[2023-07-12 09:06] LABS: Bacteria Urine 4+ (None Seen); RBC Urine >20 /HPF (0-2); UACC Culture Trigger YES; WBC Urine >50 /HPF (0-5)
[2023-07-12] MEDS: Ketorolac Tromethamine 15 MG/ML VIAL IVPUSH (09:23)
[2023-07-12] MEDS: HYDROmorphone HCl 1 MG/ML SYRINGE IVPUSH (09:23)
[2023-07-12] MEDS: 0.9 % Sodium Chloride 1,000 ML 999 ML IV (09:23)
[2023-07-12] MEDS: ondansetron HCL 4 MG/2 ML VIAL IVPUSH (09:23)
[2023-07-12 09:29] VITALS: BP 103/65; PULSE 99; RESP 18; TEMP 36.8; O2SAT 96
[2023-07-12] MEDS: cefTRIAXone sodium 1 GM in 0.9 % Sodium Chloride 50 ML IV (09:36)
--- NOTE | 2023-07-12 09:55 | PC.NURSE ---
Pt c/o 1010 LLQ pain that radiates to her lower back. She says the pain started around 0300 this morning. She also reports blood in her urine and is concerned because she had an hysterectomy some years ago. She reports hx of kidney stones and her symptoms are similar. Abd soft and tender to touch. 20g iv inserted RAC, iv fluids and meds given as documented. Pt was taken to scan, results pending. Pt's significant other is at her bedside.
[2023-07-12] MEDS: oxyCODONE HCl Immed Release 5 MG TABLET PO (12:10)
[2023-07-12 12:15] VITALS: BP 109/78; PULSE 88; RESP 18; O2SAT 97
--- NOTE | 2023-07-12 12:18 | PC.NURSE ---
pt cleared for discharge, discharge instructions reviewed with pt and associate at her bedside. po pain med given for 10/10 abd pain prior to discharge. pt accompanied by associate, he will be driving her home.
== END 2023-07-12 12:21 | disposition home or self-care (01) ==
PROVIDERS: Emergency Provider Emergency Medicine; PCP Internal Medicine
DX: N12 Tubulo-interstitial nephritis, not specified as acute or chronic (principal); N23 Unspecified renal colic; Z87.442 Personal history of urinary calculi
CPT/HCPCS: 36415; 74176; 80048; 80076; 81001; 81025; 83735; 85025; 87086; 96365; 96375; 99284; 99285; J0696; J1170; J1885; J2405

== ENCOUNTER 2023-11-24 07:24 | Outpatient (REF) | payer OTHER, SELFPAY ==
[2023-11-24 07:38] LABS: MANUAL DIFF FLAG NO
[2023-11-24 07:53] LABS: Basophils Absolute Auto 0.1 X10*3/uL (0.0-0.2); Basophils Percent Auto 0.5 % (0-2); Eosinophils Absolute Auto 0.5 X10*3/uL (0.0-0.4); Eosinophils Percent Auto 3.4 % (0-4); Hematocrit 39.4 % (37.0-47.0); Hemoglobin 12.8 g/dl (12.0-16.0); Imm Gran Abs Auto 0.07 X10*3/uL (0.00-0.03); Imm Gran Pct Auto 0.5 % (0.0-0.4); Lymphocytes Percent Auto 29.3 % (20-40); Mean Corpuscular HGB Conc 32.5 g/dl (31.0-35.0); Mean Corpuscular Hemoglobin 28.6 pg (27.0-33.0); Mean Corpuscular Volume 87.9 fL (80.0-98.0); Mean Platelet Volume 9.2 fL (9.4-12.3); Monocytes Absolute Auto 0.8 X10*3/uL (0.1-1.2); Monocytes Percent Auto 5.5 % (2-11); Neutrophils Absolute Auto 8.4 x10*3/uL (2.0-8.3); Neutrophils Percent Auto 60.8 % (45-73); Platelet Count 398 X10*3/uL (160-400); Red Blood Count 4.48 X10*6/uL (4.20-5.50); Red Cell Distribution Width 16.3 % (11.0-16.0); White Blood Count 13.8 X10*3/uL (4.8-10.8)
[2023-11-24 08:20] LABS: Alanine Aminotransferase 15 U/L (0-31); Alkaline Phosphatase 67 U/L (39-117); Anion Gap 13 (12-20); Aspartate Amino Transferase 12 U/L (5-31); Bilirubin Total 0.3 mg/dL (0.0-1.0); Blood Urea Nitrogen 12 mg/dL (9-16); Calcium 9.2 mg/dL (8.4-10.2); Carbon Dioxide 26 mmol/L (22-29); Chloride 105 mmol/L (96-108); Cholesterol 206 mg/dL (<200); Estimated Glomerular Filt Rate > 60; Glucose Random 114 mg/dL (60-115); HDL Cholesterol 46 mg/dL (>40); LDL Cholesterol Calculated 121 mg/dL (<100); Potassium 3.9 mmol/L (3.3-5.1); Sodium 140 mmol/L (135-145); Total Protein 7.4 g/dL (6.5-8.0); Triglycerides 197 mg/dL (<150)
[2023-11-26 23:03] LABS: TS Negative Control Passed; TS Panel A 0; TS Panel B 0; TS Positive Control Passed; TSpotTB Negative (Negative)
== END 2023-11-24 07:25 | disposition home or self-care (01) ==
LOC: HO.LAB 07:24
PROVIDERS: PCP Internal Medicine; Visit Provider Internal Medicine
DX: Z00.00 Encounter for general adult medical examination without abnormal findings (principal); I10 Essential (primary) hypertension; E66.01 Morbid (severe) obesity due to excess calories; G47.33 Obstructive sleep apnea (adult) (pediatric)
CPT/HCPCS: 36415; 80053; 80061; 85025; 86481

== ENCOUNTER 2023-12-03 10:15 | Outpatient (REF) | payer OTHER, SELFPAY | END 2023-12-03 10:16 | disposition home or self-care (01) | LOC: HO.MAMMO 10:15 | PROVIDERS: PCP Internal Medicine; Visit Provider Internal Medicine | DX: Z13.89 Encounter for screening for other disorder (principal) ==

== ENCOUNTER 2024-03-05 09:45 | Outpatient (REF) | payer OTHER, SELFPAY ==
--- NOTE | ~2024-03-05 | XR_ITS ---
EXAMINATION: XR CHEST CLINICAL INFORMATION: Shortness of breath. COMPARISON: Chest x-ray and CT scan dated April 07, 2020. TECHNIQUE: 2 views of the chest were obtained. FINDINGS: No significant abnormality is noted involving the heart, lungs, mediastinum, or soft tissues. Metallic lower cervical spinal hardware, unchanged. Status post cholecystectomy. XR/XR chest 2V IMPRESSION: No acute finding. Electronically signed by: Thierry Wagoner MD 03/05/2024 12:39 PM EDT
[2024-03-05 10:03] LABS: MANUAL DIFF FLAG NO
[2024-03-05 11:04] LABS: Basophils Percent Auto 0.1 % (0-2); Hematocrit 36.6 % (37.0-47.0); Hemoglobin 11.7 g/dl (12.0-16.0); Imm Gran Abs Auto 0.11 X10*3/uL (0.00-0.03); Imm Gran Pct Auto 0.8 % (0.0-0.4); Lymphocytes Absolute Auto 2.1 X10*3/uL (1.2-4.9); Lymphocytes Percent Auto 15.5 % (20-40); Mean Corpuscular Hemoglobin 28.3 pg (27.0-33.0); Mean Corpuscular Volume 88.4 fL (80.0-98.0); Monocytes Absolute Auto 0.3 X10*3/uL (0.1-1.2); Monocytes Percent Auto 2.5 % (2-11); Neutrophils Absolute Auto 10.9 x10*3/uL (2.0-8.3); Neutrophils Percent Auto 81.1 % (45-73); Platelet Count 408 X10*3/uL (160-400); Red Blood Count 4.14 X10*6/uL (4.20-5.50); Red Cell Distribution Width 16.6 % (11.0-16.0); White Blood Count 13.4 X10*3/uL (4.8-10.8)
[2024-03-05 12:37] LABS: Thyroid Stimulating Hormone 0.26 uIU/mL (0.32-4.0)
[2024-03-05 12:41] LABS: Alanine Aminotransferase 18 U/L (0-31); Albumin Level 4.1 g/dL (3.5-5.0); Alkaline Phosphatase 66 U/L (39-117); Anion Gap 17 (12-20); Aspartate Amino Transferase 12 U/L (5-31); Bilirubin Total 0.2 mg/dL (0.0-1.0); Blood Urea Nitrogen 10 mg/dL (9-16); Calcium 9.1 mg/dL (8.4-10.2); Carbon Dioxide 26 mmol/L (22-29); Chloride 106 mmol/L (96-108); Cholesterol 175 mg/dL (<200); Estimated Glomerular Filt Rate > 60; Glucose Random 141 mg/dL (60-115); HDL Cholesterol 46 mg/dL (>40); LDL Cholesterol Calculated 108 mg/dL (<100); Potassium 3.7 mmol/L (3.3-5.1); Sodium 145 mmol/L (135-145); Total Protein 7.6 g/dL (6.5-8.0); Triglycerides 106 mg/dL (<150)
== END 2024-03-05 09:46 | disposition home or self-care (01) ==
LOC: HO.XRAY 09:45
PROVIDERS: PCP Internal Medicine; Visit Provider Internal Medicine
DX: R06.02 Shortness of breath (principal); E78.00 Pure hypercholesterolemia, unspecified; G40.109 Localization-related (focal) (partial) symptomatic epilepsy and epileptic syndromes with simple partial seizures, not intractable, without status epilepticus; G47.33 Obstructive sleep apnea (adult) (pediatric); G93.2 Benign intracranial hypertension; I10 Essential (primary) hypertension; N32.81 Overactive bladder; R32 Unspecified urinary incontinence
CPT/HCPCS: 36415; 71046; 80053; 80061; 84443; 85025

== ENCOUNTER 2024-08-25 09:14 | Outpatient (REF) | payer OTHER, SELFPAY ==
[2024-08-25 09:45] LABS: MANUAL DIFF FLAG NO
[2024-08-25 10:46] LABS: Basophils Absolute Auto 0.1 X10*3/uL (0.0-0.2); Basophils Percent Auto 0.4 % (0-2); Eosinophils Absolute Auto 0.4 X10*3/uL (0.0-0.4); Hematocrit 40.1 % (37.0-47.0); Hemoglobin 12.9 g/dl (12.0-16.0); Imm Gran Abs Auto 0.07 X10*3/uL (0.00-0.03); Imm Gran Pct Auto 0.6 % (0.0-0.4); Lymphocytes Absolute Auto 4.3 X10*3/uL (1.2-4.9); Lymphocytes Percent Auto 33.7 % (20-40); Mean Corpuscular HGB Conc 32.2 g/dl (31.0-35.0); Mean Corpuscular Hemoglobin 27.9 pg (27.0-33.0); Mean Corpuscular Volume 86.6 fL (80.0-98.0); Mean Platelet Volume 8.9 fL (9.4-12.3); Monocytes Absolute Auto 0.6 X10*3/uL (0.1-1.2); Monocytes Percent Auto 4.8 % (2-11); Neutrophils Absolute Auto 7.3 x10*3/uL (2.0-8.3); Neutrophils Percent Auto 57.5 % (45-73); Platelet Count 399 X10*3/uL (160-400); Red Blood Count 4.63 X10*6/uL (4.20-5.50); White Blood Count 12.6 X10*3/uL (4.8-10.8)
[2024-08-25 11:07] LABS: Appearance Urine Cloudy; Color Urine Yellow; Glucose Urine UA Negative (Negative); Leukocyte Esterase Urine Negative (Negative); Nitrite Urine Negative (Negative); PH 7.5 (5.0-9.0); Specific Gravity - Urine 1.025 (1.005-1.025); Urine Blood Negative (Negative); Urine Ketones Negative (Negative); Urine Protein Trace mg/dL (Neg-Trace)
== END 2024-08-25 09:15 | disposition home or self-care (01) ==
LOC: HO.LAB 09:14
PROVIDERS: PCP Internal Medicine; Visit Provider Nurse Practitioner Women's Health
DX: N39.0 Urinary tract infection, site not specified (principal); R39.15 Urgency of urination
CPT/HCPCS: 36415; 81003; 85025; 87086

== ENCOUNTER 2024-11-16 15:07 | Outpatient (REF) | payer OTHER, SELFPAY ==
[2024-11-16 17:16] LABS: Estimated Average Glucose 123 mg/dL; Hemoglobin A1c % 5.9 % (<6.0)
--- OUTSIDE RECORDS SUMMARY | 2024-11-16 17:38 | XMS_ITS | Data Portability ---
Author Organization [place] [address] Address [address] [place] [address] Assessment No assessment recorded. Plan of Treatment Reminders Order Date Submit Date Provider Last Modified By Organization Details Last Modified Time Details Appointments None recorded. Lab None recorded. Referral None recorded. Procedures None recorded. Surgeries None recorded. Imaging None recorded. Medication Orders permethrin 5 % topical cream [address] [facility] [place], [address], 3 12:11:15 hydroxyzine HCl 25 mg tablet [address] [facility] [place], [address], 3 12:11:15 Patient TargetsNo targets recorded. Patient Instructions Encounter Date Encounter Id Patient Instructions Last Modified By Organization Details Last Modified Time 12/20/2022 [id number] scabies: care instructions Not available 12/20/2022 12:11:13 scabies/elimite information Not available 12/20/2022 12:11:13 scabies education Not availabl e 12/20/2022 12:11:13 Apply the permethrin cream from head to toe before bed. Shower in the am to remove. Wash all clothes and bedding. [place] or clean furniture or carpets. Repeat procedure in 10 to 14 days. You may continue to experience itching for 2-3 weeks following elimination of the Scabies infestation. Continue to treat the itching as needed with Aveeno baths or antihistamines as needed. Return to [facility] or to your primary care physician if your symptoms persist for longer than 3-4 weeks or worsen at any time. ? Follow the treatment plan as we discussed and follow house cleaning procedures as discussed as well. The same procedures are to be repeated in 1 week. ? Avoid scratching, as it may further irritate the skin and may lead to infection Not available 12/20/2022 12:10:37 Reason for Referral None Reported. Problems Name Problem SNOMED Code Status Onset Date Resolution Date Notes Provider Name and Address Organization Details Recorded Time Hypertensive disorder 22521798 Active 2022 Alpateodoro hernandes PA - [facility] 3 11:40:41 Chronic back pain 753084856 Active 2022 Alpa Bill null, PA - [facility] 3 11:40:48 Problem Notes None recorded. Procedures Surgical History Date Name Laterality Status Provider Name and Address Organization Details Recorded Time hysterectomy completed Alpa Bill PA - [facility] 12/20/2022 11:41:40 Imaging Results None recorded. Procedure Notes None recorded. Medical Equipment None Reported. Allergies Allergen ID Allergen Name Allergen Category Reaction Reaction Severity Criticality Documentation Date Start Date Code Code System Note Provider Name and Address Organization Details Recorded Time 392265 Bactrim medicatio n anaphylax is Not available Not available 12/20/2022 [id number] RxNorm Alpa Khan null, PA - [facility] 11:39:16 Medications Name Sig Start Date Stop Date Status Note LastModified by Organization Details LastModified Time amoxicillin 500 mg capsule TAKE 4 CAPSUES BY MOUTH 1 HOUR PRIOR TO PROCEDURES (X 2 PROCEDURES) . active Not Available Not Available No t Available ipratropium 0.5 mg-albuterol 3 mg (2.5 mg base)/3 mL nebulization soln INHALE 1 VIAL 3ML) VIA NEBULIZER TWO TIMES A DAY active Not Available Not Available No t Available tizanidine 2 mg tablet TAKE ONE TABLET BY MOUTH TWICE A DAY NEEDED. active Not Available Not Available No t Available levorphanol tartrate 2 mg tablet TAKE ONE TABLET BY MOUTH TWICE A DAY NEEDED FOR PAIN active Not Available Not Available No t Available metoprolol succinate ER 50 mg tablet,exten ded release 24 hr TAKE ONE TABLET BY MOUTH EVERY DAY. active Not Available Not Available No t Available prednisone 20 mg tablet TAKE ONE TABLET BY MOUTH EVERY DAY FOR 7 DAYS active Not Available Not Available No t Available permethrin 5 % topical cream APPLY AND THOROUGHLY MASSAGE INTO SKIN FROM HEAD TO SOLES OF FEET TOPICALLY ONCE AND LEAVE ON FOR 8 TO 14 HOURS, THEN REMOVE BY THOROUGH WAS active Not Available Not Available No t Available losartan 100 mg-hydrochlo rothiazide 25 mg tablet TAKE ONE TABLET BY MOUTH EVERY DAY active Not Available Not Available No t Available oxycodone-ac etaminophen 10 mg-325 mg tablet TAKE 1 TABLET BY MOUTH UP TO FOUR TIMES A DAY NEEDED FOR SEVERE PAIN active Not Available Not Available Not Available tamsulosin 0.4 mg capsule TAKE ONE CAPSULE BY MOUTH EVERY DAY active Not Available Not Available No t Available doxepin 100 mg capsule TAKE ONE CAPSULE BY MOUTH AT BEDTIME active Not Available Not Available No t Available methazolamid e 25 mg tablet TAKE ONE TABLET BY MOUTH EVERY DAY active Not Available Not Available No t Available gabapentin 300 mg capsule TAKE ONE CAPSULE BY MOUTH EVERY MORNING AND TAKE TWO CAPSULES BY MOUTH AT BEDTIME. active Not Available Not Available No t Available hydroxyzine HCl 25 mg tablet TAKE ONE TABLET BY MOUTH THREE TIMES A DAY NEEDED FOR 7 DAYS active Not Available Not Available N ot Available allopurinol 300 mg tablet TAKE ONE TABLET BY MOUTH EVERY DAY active Not Available Not Available No t Available losartan 100 mg tablet TAKE 1 TABLET BY MOUTH DAILY. active Not Available Not Available No t Available clotrimazole 1 % topical cream APPLY TOPICALLY TWICE A DAY active Not Available Not Available Not Available doxepin 150 mg capsule TAKE ONE CAPSULE BY MOUTH AT BEDTIME active Not Available Not Available No t Available Ventolin HFA 90 mcg/actuatio n aerosol inhaler INHALE TWO PUFFS BY MOUTH FOUR TIMES A DAY NEEDED FOR ASTHMA active Not Available Not Available N ot Available aripiprazole 5 mg tablet TAKE ONE TABLET BY MOUTH AT BEDTIME active Not Available Not Available No t Available duloxetine 60 mg capsule,mattie yed release TAKE TWO CAPSULES BY MOUTH AT BEDTIME active Not Available Not Available No t Available Flovent HFA 110 mcg/actuatio n aerosol inhaler INHALE TWO PUFFS BY MOUTH TWICE A DAY active Not Available Not Available No t Available oxycodone active Not Available Not Shakila ilable Not Available amlodipine active Not Available Not Av ailable Not Available levorphanol tartrate active Not Available Not Available Not Available metoprolol succinate active Not Available Not Available No t Available doxapram active Not Available Not Avai lable Not Available gabapentin active Not Available Not Av ailable Not Available duloxetine active Not Available Not Av ailable Not Available oxycodone 10 mg tablet TAKE 1 TABLET BY MOUTH UP TO 4 TIMES A DAY FOR SEVERE ACTIVITY RELATED PAIN. active Not Available Not Available No t Available diclofenac 1 % topical gel APPLY 2 GRAMS TO THE AREA OF DISCOMFORT FOUR TIMES A DAY NEEDED FOR PAIN RELIEF active Not Available Not Available Not Available naloxone 4 mg/actuation nasal spray ONE SPRAY INTO ONE NOSTRIL FOR SIGNS OF OPIOD OVERDOSE. CALL 911. MAY REPEAT IN TWO MINUTES IF NEEDED active Not Available Not Available No t Available Vitals Date Recorded Body height Body mass index (BMI) Body weight Oxygen saturation Oxygen saturation in Arterial blood by Pulse oximetry Heart rate Respiratory rate Body temperature Systolic blood pressure Diastolic blood pressure Provider Name and Address Organization Details Last Updated DateTime 3 157.48 cm 46.5 kg/m2 574992. 46 g 95 % 95 % 91 /min 20 /min 98 [degF] 111 mm[Hg] 68 mm[Hg] Alpa Khan [employer] 11:44:19 Social History Question Answer Notes LastModified by [employer] Details LastModified Time Tobacco Smoking Status Never Smoker Alpa hernandes [employer] [facility] 12/20/2022 11:41:05 Have You Had Direct Contact, Or Contact During Intimacy, With Monkeypox Rash, Scabs, Or Body Fluids From A Person With Monkeypox? No Information not available 12/20/2022 Have You Recently Traveled Abroad? No Information not available 12/20/2022 Sex: Unknown Functional Status Question Answer Note LastModified by [employer] Details LastModified Time Do you use any illicit or recreational drugs? No Information not available 12/20/2022 Do you or have you ever used any other forms of tobacco or nicotine? No Information not available 12/20/2022 What is your level of alcohol consumption? None Information not available 12/20/2022 Mental Status None recorded. Family History Relationship Description Onset Age of this Age Resolved Age Notes LastModified by Organization Details LastModified Time Father No current problems or disability Not available 12/20 11:40:56 Mother No current problems or disability Not available 12/20 11:40:57 Medical History No medical history recorded. Gynecological History Statement/Question Response Is there any chance of ? No LMP N/A Obstetrics History GPAL:G 0 P 0 0 0 0 Past Encounters Encounter ID Performer Location Encounter Start Date Encounter Closed Date Diagnosis/Indication Diagnosis SNOMED-CT Code Diagnosis ICD10 Code Diagnosis Note [id number] [address] [place] [address] 12/22/2015 17:37:31 12/22/2015 18:08:18 [id number] [address] [place] [address] 02/22/2019 17:01:07 02/22/2019 18:18:53 [id number] [address] [place] [address] 01/27/2019 17:46:13 01/27/2019 18:37:16 [id number] [address] [place] [address] 10/07/2015 15:29:58 10/07/2015 16:28:33 [id number] [address] [place] [address] 11/03/2018 19:38:10 11/03/2018 20:06:00 [id number] Sanya Islas NP [address] [place] [address] 12/20/2022 11:08:06 12/20/2022 12:13:55 Infestation by Sarcoptes scabiei elton monico [id number] Health Concerns Section Related Observation LastModified by Organization Detai ls LastModified Time None Recorded Concern Status LastModified by Organization Details LastModified Time None Recorded Advance Directives Directive None Recorded Payers Insurance Date Sequence Insurance Name Policy Number Policy Isaacs Covered Member ID Isaacs Member ID Guarantor Name 12/20/2022 1 [facility] (MEDICAID HMO) [id number] Lisa Shelton [id number] Lisa Barrera Notes Date Note Type Note Provider Name and Address Organization Details Recorded Time 3 text/html UC Rash/Skin LesionReported bypatient.source of patient informationInformation obtained from patient; Patient arrived at Urgent Care ambulatory Location:arms; abdomen; groin Quality:itchy;red;spreading Severity:moderate Duration:2 weeks Context:other exposure; no new detergent or skin product; no recent change in medication; no exposure to hair dye; no expsoure to new clothes/jewelry; no recent travel; no recent illness; no pets/animals in home; not affiliated with chemicals/pesticides Alleviating Factors:nothing gives relief Associated Symptoms:no fever; no fatigue Sanya Islas NP [address] [place], [address], [place] - [facility] 12/20/2022 12:11:46 OBGyn Episode No OBEpisode recorded.
[2024-11-16 17:47] LABS: Anion Gap 12 (12-20); Blood Urea Nitrogen 15 mg/dL (9-16); Calcium 8.9 mg/dL (8.4-10.2); Carbon Dioxide 31 mmol/L (22-29); Chloride 103 mmol/L (96-108); Estimated Glomerular Filt Rate > 60; Glucose Random 91 mg/dL (60-115); Potassium 3.5 mmol/L (3.3-5.1); Sodium 142 mmol/L (135-145)
[2024-11-16 17:48] LABS: Alanine Aminotransferase 24 U/L (0-31); Albumin Level 4.2 g/dL (3.5-5.0); Alkaline Phosphatase 81 U/L (39-117); Aspartate Amino Transferase 15 U/L (5-31); Bilirubin Total 0.2 mg/dL (0.0-1.0); Cholesterol 151 mg/dL (<200); HDL Cholesterol 44 mg/dL (>40); LDL Cholesterol Calculated 61 mg/dL (<100); Total Protein 7.3 g/dL (6.5-8.0); Triglycerides 233 mg/dL (<150)
[2024-11-16 18:04] LABS: Ferritin 21 ng/mL (10-250); TSH reflex Free T4 1.21 uIU/mL (0.32-4.0)
== END 2024-11-16 15:08 | disposition home or self-care (01) ==
LOC: HO.LAB 15:07
PROVIDERS: PCP Internal Medicine; Visit Provider Internal Medicine
DX: D50.9 Iron deficiency anemia, unspecified (principal); G47.33 Obstructive sleep apnea (adult) (pediatric); G56.01 Carpal tunnel syndrome, right upper limb; G93.2 Benign intracranial hypertension; L02.92 Furuncle, unspecified; Z68.42 Body mass index [BMI] 45.0-49.9, adult
CPT/HCPCS: 36415; 80053; 80061; 82728; 83036; 84443

== ENCOUNTER 2025-03-25 08:31 | Outpatient (REF) | payer OTHER, SELFPAY ==
[2025-03-25 08:49] LABS: MANUAL DIFF FLAG NO
[2025-03-25 09:12] LABS: Hematocrit 39.0 % (37.0-47.0); Hemoglobin 12.4 g/dl (12.0-16.0); Imm Gran Abs Auto 0.04 X10*3/uL (0.00-0.03); Imm Gran Pct Auto 0.3 % (0.0-0.4); Lymphocytes Absolute Auto 2.4 X10*3/uL (1.2-4.9); Mean Corpuscular HGB Conc 31.8 g/dl (31.0-35.0); Mean Corpuscular Hemoglobin 27.5 pg (27.0-33.0); Mean Corpuscular Volume 86.5 fL (80.0-98.0); NRBC Abs Auto 0.000 X10*3/uL (0.0-0.012); NRBC Pct Auto 0.0 /100WBC (0.0-0.2); Platelet Count 384 X10*3/uL (160-400); Red Blood Count 4.51 X10*6/uL (4.20-5.50); White Blood Count 13.1 X10*3/uL (4.8-10.8)
[2025-03-25 09:48] LABS: Alanine Aminotransferase 15 U/L (0-31); Albumin Level 4.1 g/dL (3.5-5.0); Alkaline Phosphatase 77 U/L (39-117); Anion Gap 13 (12-20); Aspartate Amino Transferase 18 U/L (5-31); Blood Urea Nitrogen 10 mg/dL (9-16); Calcium 8.6 mg/dL (8.4-10.2); Carbon Dioxide 29 mmol/L (22-29); Chloride 103 mmol/L (96-108); Estimated Glomerular Filt Rate > 60; Potassium 3.4 mmol/L (3.3-5.1); Sodium 142 mmol/L (135-145); Total Protein 7.3 g/dL (6.5-8.0)
[2025-03-25 10:06] LABS: Ferritin 28 ng/mL (10-250)
== END 2025-03-25 08:32 | disposition home or self-care (01) ==
LOC: HO.LAB 08:31
PROVIDERS: PCP Internal Medicine; Visit Provider Internal Medicine
DX: G93.2 Benign intracranial hypertension (principal); G47.33 Obstructive sleep apnea (adult) (pediatric); G58.0 Intercostal neuropathy; D50.9 Iron deficiency anemia, unspecified; R13.10 Dysphagia, unspecified
CPT/HCPCS: 36415; 80053; 82728; 83036; 85025